=== PATIENT | male | born 1965 | race Caucasian/White ===

== ENCOUNTER 2016-11-28 14:14 | Inpatient (IN) | payer OTHER ==
[~2016-11-28] VITALS: Ht 182.9 cm; Wt 117.9 kg
[2016-11-28] MEDS ORDERED: IV NORMAL SALINE 1000ML BAG 1,000 ML IV SCH (14:56)
[2016-11-28] MEDS ORDERED: MECLIZINE HCL 12.5 MG TABLET. PO ONE (15:00)
--- NOTE | 2016-11-28 15:27 | EKG ---
[facility] [address] [place] [address] Test Date: 2016-11-28 Test Time: 14:36:38 Pat Name: JOSÉ MIGUEL COCHRAN Department: Room: Gender: M Academic Physician: : [id number] Requested By: Familia SHORT Order Number: [id number] Reading MD: Measurements Intervals [place] Rate: 74 P: 42 UT: 172 QRS: -28 QRSD: 98 T: 1 QT: 388 QTc: 436 Interpretive Statements SINUS RHYTHM ATRIAL PREMATURE COMPLEX(ES) LEFTWARD AXIS OTHERWISE NORMAL ECG RI6.01 No previous ECG available for comparison
--- NOTE | 2016-11-28 15:28 | RAD ---
PQRS Compliance Statement: One or more of the following individualized dose reduction techniques were utilized for this examination: 1. Automated exposure control 2. Adjustment of the mA and/or kV according to patient size 3. Use of iterative reconstruction technique CT of the head without contrast, 11/28/2016: History: Dizziness, tinnitus The ventricles are within normal limits in size. There is no shift of the midline structures. There is no evidence of acute intracranial hemorrhage or mass effect. IMPRESSION: No acute intracranial abnormality is detected.
[2016-11-28 15:54] LABS: CALCIUM 9.1 mg/dL (8.5-10.1); GFR 78.5
[2016-11-28 16:28] LABS: BASO # 0.1 x10^3/uL (0.0-0.2); BASO % 1 % (0-3); EOS % 3 % (0-3); HEMATOCRIT 44.9 % (39.0-53.0); HEMOGLOBIN 15.4 g/dL (13.0-17.5); LYMPH # 1.9 x10^3/uL (1.0-4.8); LYMPH % 15 % (24-48); MEAN CORPUSCULAR HEMOGLOBIN 29 pg (25-35); MEAN CORPUSCULAR HGB CONC 34 g/dL (31-37); MEAN CORPUSCULAR VOLUME 84 fL (79-100); MONO % 10 % (0-9); NEUT % 72 % (31-73); PLATELET COUNT 323 x10^3/uL (140-400); RED BLOOD COUNT 5.34 x10^6/uL (4.30-5.70); RED CELL DISTRIBUTION WIDTH 14.3 % (11.5-14.5); WHITE BLOOD COUNT 12.5 x10^3/uL (4.0-11.0)
[2016-11-28] MEDS ORDERED: DIAZEPAM 10 MG/2 ML DISP.SYRIN. IV ONE (16:30)
[2016-11-28] MEDS ORDERED: ACETAMINOPHEN 500 MG TABLET PO ONE (16:30)
--- NOTE | 2016-11-28 17:22 | PDOC2 ---
NEUROLOGY CONSULT Date of Admission Date of Admission DATE: 11/28/16 TIME: 17:08 Reason for Consult Reason for Consult: IMPRESSION: Vertigo. Dizziness Headaches Unsteadiness HTN HLD Obesity Drinking Tobacco use. RECOMMENDATIONS/PLAN: Brain MRI RANJIT. Carotid A US + Doppler. Plavix 75 mg daily, 1st dose starts on 11/28 if has CVA. Continue Lipitor HS. Meclizine 25 mg tid. Lab: UDS and other labs. HISTORY OF THE PRESENT ILLNESS: 51-y-old male patient with Hx of HTN and HLD developed symptoms of vertigo feeling room and self spinning, headache, unsteadiness and photophobia. No sensory or motor deficits. Cranial nerves are not affected. He came to the ER for evaluation. No history of chronic headache, ataxia, projectile vomiting, aphasia, numbness or weakness. PAST MEDICAL HISTORY: Please see above. PAST SURGERY HISTORY: No major surgery recently. ALLERGY: Unknown MEDICATIONS: Refer to [facility] FAMILY HISTORY: Non contributory. SOCIAL HISTORY: Lives at home. Denies illicit drug use. He chews tobacco on a daily basis many years. He was a heavy drinker in the past, but drinks infrequently now. REVIEW OF SYSTEMS: Constitutional: No malnutrition, weight loss, cachexia. Head: No traumatic brain or head injury. Skin: No edema, or rash. Ear: No infection, tinnitus. Eyes: No vision loss or color blindness. Nose: No bleeding or purulent discharges. Hearing: No hearing decrease. Neck: No injury. Cardiac: HTN, HLD. Pulmonary: No COPD. GI: No GI ulcer, GI bleeding. Urinary/genital: No dysuria, hematuria, incontinence, urinary retention. Endocrinologic: obesity. Skeletomuscular: No muscular atrophy, deformity. Neurological: see HP. Psychiatric: Denies drug use/abuse. Otherwise, not [id number] review of systems. PHYSICAL EXAMINATION: General appearance is in acute distress. HEENT: Normocephalic and nontraumatic. Eyes, nose, ears, and throat are unremarkable. Neck is supple. No lymphadenopathy. No bruits are heard over the carotid artery. No crepitus. Cardiovascular: S1, S2, regular rate and rhythm. Pulmonary: Clear to auscultation bilaterally. Abdomen: Bowel sounds are positive. Abdomen is soft, nontender, and nondistended. Extremities: No rash, lesions, or edema. No restriction of range of motion NEUROLOGICAL EXAMINATION: Awake. Oriented to time, place and person. PERRL. EOMI. Bilateral horizontal nystagmus noted. CN: no focal findings. Muscle tone: within normal. Muscle strength: 5 UE, 4+LE DTR: 2 UE, 1 at knee Plantar reflex: Flexor response bilaterally Gait: not examined in bed. Sensory exam: no acute abnormal findings. F-T-N test fine. Current Medications Current Medications Current Medications Sodium Chloride (Iv Sodium Chloride 0.9% 1000ml Bag) 1,000 ml @ 1,000 mls/hr Q1H IV Last administered on 11/28/16 15:24; Start 11/28/16 at 14:56; Stop at 15:55; Status DC Meclizine HCl (Antivert) 25 mg 1X ONCE PO Last administered on 11/28/16 15:24 ; Start 11/28/16 at 15:00; Stop 11/28/16 at 15:02; Status DC Acetaminophen (Tylenol) 500 mg 1X ONCE PO Last administered on 11/28/16 16:33 ; Start 11/28/16 at 16:30; Stop 11/28/16 at 16:31; Status DC Diazepam (Valium) 2 mg 1X ONCE IV Last administered on 11/28/16 16:34; Start 11/28/16 at 16:30; Stop 11/28/16 at 16:31; Status DC Allergies Allergies: Coded Allergies: aspirin (Verified Allergy, Unknown, 11/28/16) Vitals VITALS Vital Signs Date Time Temp Pulse Resp B/P Pulse Ox O2 Delivery O2 Flow Rate FiO2 11/28/16 14:42 98.2 72 16 135/66 95 Room Air 98.2 Labs Labs Laboratory Tests Test 11/28/16 15:17 White Blood Count 12.5x10^3/uL (4.0-11.0) Red Blood Count 5.34x10^6/uL (4.30-5.70) Hemoglobin 15.4g/dL (13.0-17.5) Hematocrit 44.9% (39.0-53.0) Mean Corpuscular Volume 84fL (79-100) Mean Corpuscular Hemoglobin 29pg (25-35) Mean Corpuscular Hemoglobin Concent 34g/dL (31-37) Red Cell Distribution Width 14.3% (11.5-14.5) Platelet Count 323x10^3/uL (140-400) Neutrophils (%) (Auto) 72% (31-73) Lymphocytes (%) (Auto) 15% (24-48) Monocytes (%) (Auto) 10% (0-9) Eosinophils (%) (Auto) 3% (0-3) Basophils (%) (Auto) 1% (0-3) Neutrophils # (Auto) 8.9x10^3uL (1.8-7.7) Lymphocytes # (Auto) 1.9x10^3/uL (1.0-4.8) Monocytes # (Auto) 1.2x10^3/uL (0.0-1.1) Eosinophils # (Auto) 0.4x10^3/uL (0.0-0.7) Basophils # (Auto) 0.1x10^3/uL (0.0-0.2) Sodium Level 140mmol/L (136-145) Potassium Level 4.0mmol/L (3.5-5.1) Chloride Level 105mmol/L (98-107) Carbon Dioxide Level 26mmol/L (21-32) Anion Gap 9 (6-14) Blood Urea Nitrogen 12mg/dL (8-26) Creatinine 1.0mg/dL (0.7-1.3) Estimated GFR (Cockcroft-Gault) 78.5 Glucose Level 103mg/dL (70-99) Calcium Level 9.1mg/dL (8.5-10.1) Laboratory Tests Test 11/28/16 15:17 White Blood Count 12.5x10^3/uL (4.0-11.0) Red Blood Count 5.34x10^6/uL (4.30-5.70) Hemoglobin 15.4g/dL (13.0-17.5) Hematocrit 44.9% (39.0-53.0) Mean Corpuscular Volume 84fL (79-100) Mean Corpuscular Hemoglobin 29pg (25-35) Mean Corpuscular Hemoglobin Concent 34g/dL (31-37) Red Cell Distribution Width 14.3% (11.5-14.5) Platelet Count 323x10^3/uL (140-400) Neutrophils (%) (Auto) 72% (31-73) Lymphocytes (%) (Auto) 15% (24-48) Monocytes (%) (Auto) 10% (0-9) Eosinophils (%) (Auto) 3% (0-3) Basophils (%) (Auto) 1% (0-3) Neutrophils # (Auto) 8.9x10^3uL (1.8-7.7) Lymphocytes # (Auto) 1.9x10^3/uL (1.0-4.8) Monocytes # (Auto) 1.2x10^3/uL (0.0-1.1) Eosinophils # (Auto) 0.4x10^3/uL (0.0-0.7) Basophils # (Auto) 0.1x10^3/uL (0.0-0.2) Sodium Level 140mmol/L (136-145) Potassium Level 4.0mmol/L (3.5-5.1) Chloride Level 105mmol/L (98-107) Carbon Dioxide Level 26mmol/L (21-32) Anion Gap 9 (6-14) Blood Urea Nitrogen 12mg/dL (8-26) Creatinine 1.0mg/dL (0.7-1.3) Estimated GFR (Cockcroft-Gault) 78.5 Glucose Level 103mg/dL (70-99) Calcium Level 9.1mg/dL (8.5-10.1) ESTELA NOVOA MD Nov 28, 2016 17:22
--- NOTE | 2016-11-28 17:55 | PHYS DOC ---
Past Medical History Past Medical History: High Cholesterol Past Surgical History: Tonsillectomy Smoking: Chew Alcohol Use: Rarely Drug Use: None Adult General Chief Complaint Chief Complaint: DIZZY/LIGHT HEADED HPI HPI Patient is a 51 year old male who presents with acute onset of room spinning dizziness associated with bilateral ringing in ears that started while he was at work today. States his symptoms are worse with movement of his head or standing. His symptoms are constant, but to improve with rest. Minor movement does not exacerbate his symptoms. He denies vision changes, nausea or vomiting, chest pain, palpitations, diaphoresis, cough, dyspnea, abdominal pain, diarrhea , fever or chills, headache, neck pain or manipulation. Review of Systems Review of Systems Constitutional: Denies fever or chills [] Eyes: Denies change in visual acuity, redness, or eye pain [] HENT: Denies nasal congestion or sore throat [] Respiratory: Denies cough or shortness of breath [] Cardiovascular: No additional information not addressed in HPI [] GI: Denies abdominal pain, nausea, vomiting, bloody stools or diarrhea [] : Denies dysuria or hematuria [] Musculoskeletal: Denies back pain or joint pain [] Integument: Denies rash or skin lesions [] Neurologic: Denies headache, focal weakness or sensory changes [] Endocrine: Denies polyuria or polydipsia [] Current Medications Current Medications Current Medications Medications (Trade) Dose Ordered Sig/Camilo Start Time Stop Time Status Last Admin Dose Admin Acetaminophen (Tylenol) 500 mg 1X ONCE 11/28/16 16:30 11/28/16 16:31 DC 11/28/16 16:33 500 MG Diazepam (Valium) 2 mg 1X ONCE 11/28/16 16:30 11/28/16 16:31 DC 11/28/16 16:34 2 MG Meclizine HCl (Antivert) 25 mg 1X ONCE 11/28/16 15:00 11/28/16 15:02 DC 11/28/16 15:24 25 MG Sodium Chloride (Iv Sodium Chloride 0.9% 1000ml Bag) 1,000 ml @ 1,000 mls/hr Q1H 11/28/16 14:56 11/28/16 15:55 DC 11/28/16 15:24 1,000 MLS/HR Allergies Allergies Allergies Coded Allergies Type Severity Reaction Last Updated Verified aspirin Allergy Unknown 11/28/16 Yes Physical Exam Physical Exam Constitutional: Well developed, well nourished, no acute distress, non-toxic appearance. [] HENT: Normocephalic, atraumatic, bilateral external ears normal, oropharynx moist, no oral exudates, nose normal. [] Eyes: PERRLA, EOMI. [] Neck: Normal range of motion, supple. [] Cardiovascular:Heart rate regular rhythm [] Lungs & Thorax: Bilateral breath sounds clear to auscultation [] Abdomen: Bowel sounds normal, soft, no tenderness. [] Skin: Warm, dry, no erythema, no rash. [] Back: Normal range of motion. [] Extremities: No tenderness, ROM intact, no edema. [] Neurologic: Alert and oriented X 3, normal motor function, normal sensory function, no focal deficits noted, cranial nerves II through XII intact, no nystagmus, no extremity drift. [] Psychologic: Affect normal, judgement normal, mood normal. [] Current Patient Data Vital Signs Vital Signs Date Time Temp Pulse Resp B/P Pulse Ox O2 Delivery O2 Flow Rate FiO2 11/28/16 14:42 98.2 72 16 135/66 95 Room Air 98.2 Lab Values Laboratory Tests Test 11/28/16 15:17 White Blood Count 12.5x10^3/uL (4.0-11.0) H Red Blood Count 5.34x10^6/uL (4.30-5.70) Hemoglobin 15.4g/dL (13.0-17.5) Hematocrit 44.9% (39.0-53.0) Mean Corpuscular Volume 84fL (79-100) Mean Corpuscular Hemoglobin 29pg (25-35) Mean Corpuscular Hemoglobin Concent 34g/dL (31-37) Red Cell Distribution Width 14.3% (11.5-14.5) Platelet Count 323x10^3/uL (140-400) Neutrophils (%) (Auto) 72% (31-73) Lymphocytes (%) (Auto) 15% (24-48) L Monocytes (%) (Auto) 10% (0-9) H Eosinophils (%) (Auto) 3% (0-3) Basophils (%) (Auto) 1% (0-3) Neutrophils # (Auto) 8.9x10^3uL (1.8-7.7) H Lymphocytes # (Auto) 1.9x10^3/uL (1.0-4.8) Monocytes # (Auto) 1.2x10^3/uL (0.0-1.1) H Eosinophils # (Auto) 0.4x10^3/uL (0.0-0.7) Basophils # (Auto) 0.1x10^3/uL (0.0-0.2) Sodium Level 140mmol/L (136-145) Potassium Level 4.0mmol/L (3.5-5.1) Chloride Level 105mmol/L (98-107) Carbon Dioxide Level 26mmol/L (21-32) Anion Gap 9 (6-14) Blood Urea Nitrogen 12mg/dL (8-26) Creatinine 1.0mg/dL (0.7-1.3) Estimated GFR (Cockcroft-Gault) 78.5 Glucose Level 103mg/dL (70-99) H Calcium Level 9.1mg/dL (8.5-10.1) Laboratory Tests 11/28/16 15:17 Laboratory Tests 11/28/16 15:17 EKG EKG EKG as interpreted by me as normal sinus rhythm, rate 74, no ST-T changes, normal intervals, no ectopy Radiology/Procedures Radiology/Procedures Head CT without contrast IMPRESSION: No acute intracranial abnormality is detected. DICTATED and SIGNED BY: BLAKE TADEO MD DATE: 11/28/16 1524 Course & Med Decision Making Course & Med Decision Making Pertinent Labs and Imaging studies reviewed. (See chart for details) Workup is unremarkable. He has not improved with IV fluids and meclizine and he has developed a throbbing bilateral headache. Neuro exam is unchanged at this time. He ambulated to the restroom and became very dizzy. I discussed the case with Dr. Waters, neurology, with concern of possible central cause of vertigo. She recommended stat Brain MRI. I called MRI to help facilitate imaging, but this will not be complete within the window for thrombolysis. He will be admitted for further workup. Discussed case with Dr. Allen, who will admit and follow up results of MRI. Dragon Disclaimer Dragon Disclaimer This electronic medical record was generated, in whole or in part, using a voice recognition dictation system. Departure Departure Impression: Primary Impression: Dizziness Additional Impression: Tinnitus Disposition: 09 ADMITTED INPATIENT Condition: STABLE Referrals: UNKNOWN PCP NAME (PCP) Problem Qualifiers Additional Impression: Tinnitus Laterality: bilateral Qualified Code: H93.13 - Tinnitus, bilateral Familia SHORT MD Nov 28, 2016 17:54
[2016-11-28] MEDS ORDERED: ACETAMINOPHEN 325 MG TABLET. PO PRN ×3 (19:00→20:45)
[2016-11-28] MEDS ORDERED: ONDANSETRON PF 4 MG/2 ML VIAL. IV PRN ×3 (19:00→20:45)
[2016-11-28 19:54] VITALS: BP 145/89
--- NOTE | 2016-11-28 20:08 | RAD ---
PROCEDURE MRI of the brain without contrast HISTORY Dizziness on light sensitivity and headache TECHNIQUE Multisequential imaging of the brain was performed without contrast FINDINGS There are a few tiny foci of increased signal on FLAIR in the periventricular and subcortical white matter. There is no mass effect or extra-axial fluid collections or hydrocephalus. There is no restricted water motion to suggest ischemia. IMPRESSION Tiny foci of signal abnormality in the white matter is likely chronic small vessel disease. There is no acute findings. Electronically signed by: Tylor Burton MD (Nov 28, 2016 20:07:02)
[2016-11-28] MEDS ORDERED: ALBUTEROL SULFATE 2.5 MG/3 ML NEBU. NEB PRN ×2 (20:30→20:45)
[2016-11-28] MEDS ORDERED: hydrALAZINE 20 MG/ML VIAL. IVP PRN ×2 (20:30→20:45)
--- NOTE | 2016-11-28 20:34 | PDOC1 ---
History and Physical Current Problem List Problem List Problems Medical Problems: (1) Dizziness Status: Acute (2) Tinnitus Status: Acute Current Medications Current Medications Current Medications Medications (Trade) Dose Ordered Sig/Camilo Start Time Stop Time Status Last Admin Dose Admin Acetaminophen (Tylenol) 650 mg PRN Q4HRS PRN 11/28/16 19:00 11/29/16 18:59 Diazepam (Valium) 2 mg 1X ONCE 11/28/16 16:30 11/28/16 16:31 DC 11/28/16 16:34 2 MG Meclizine HCl (Antivert) 25 mg 1X ONCE 11/28/16 15:00 11/28/16 15:02 DC 11/28/16 15:24 25 MG Ondansetron HCl (Zofran) 4 mg PRN Q8HRS PRN 11/28/16 19:00 11/29/16 18:59 11/28/16 19:44 4 MG Sodium Chloride (Iv Sodium Chloride 0.9% 1000ml Bag) 1,000 ml @ 1,000 mls/hr Q1H 11/28/16 14:56 11/28/16 15:55 DC 11/28/16 15:24 1,000 MLS/HR Allergies Allergies Allergies Coded Allergies Type Severity Reaction Last Updated Verified aspirin Allergy Unknown 11/28/16 Yes ROS Review of System CONSTITUTIONAL: No fever or chills EYES: No recent changes SKIN: No rash or itching CARDIOVASCULAR: No chest pain, syncope, palpitations, or edema RESPIRATORY: No SOB or cough GASTROINTESTINAL: No nausea, vomiting or abdominal pain NEUROLOGICAL: dizziness, tinnitus, headaches ENDOCRINE: No cold or heat intolerance GENITOURINARY: No urgency or frequency of urination MUSCULOSKELETAL: No back pain or joint pain LYMPHATICS: No enlarged lymph nodes PSYCHIATRIC: No anxiety or depression Physical Exam Physical Exam GEN.: No apparent distress. Alert and oriented. HEENT: Head is normocephalic, atraumatic NECK: Supple. no jvd LUNGS: Clear to auscultation. normal airflow HEART: RRR, S1, S2 present. Peripheral pulses intact ABDOMEN: Soft, nontender. Positive bowel sounds. EXTREMITIES: Without any cyanosis. NEUROLOGIC: Normal speech, normal tone normal strength in all extremities, no focal defects seen on exam PSYCHIATRIC: Normal affect, normal mood. SKIN: No visible skin changes Vitals Vitals Vital Signs Date Time Temp Pulse Resp B/P Pulse Ox O2 Delivery O2 Flow Rate FiO2 11/28/16 19:54 98.0 69 20 145/89 97 Room Air 98.0 Labs Labs Laboratory Tests Test 11/28/16 15:17 White Blood Count 12.5x10^3/uL (4.0-11.0) Red Blood Count 5.34x10^6/uL (4.30-5.70) Hemoglobin 15.4g/dL (13.0-17.5) Hematocrit 44.9% (39.0-53.0) Mean Corpuscular Volume 84fL (79-100) Mean Corpuscular Hemoglobin 29pg (25-35) Mean Corpuscular Hemoglobin Concent 34g/dL (31-37) Red Cell Distribution Width 14.3% (11.5-14.5) Platelet Count 323x10^3/uL (140-400) Neutrophils (%) (Auto) 72% (31-73) Lymphocytes (%) (Auto) 15% (24-48) Monocytes (%) (Auto) 10% (0-9) Eosinophils (%) (Auto) 3% (0-3) Basophils (%) (Auto) 1% (0-3) Neutrophils # (Auto) 8.9x10^3uL (1.8-7.7) Lymphocytes # (Auto) 1.9x10^3/uL (1.0-4.8) Monocytes # (Auto) 1.2x10^3/uL (0.0-1.1) Eosinophils # (Auto) 0.4x10^3/uL (0.0-0.7) Basophils # (Auto) 0.1x10^3/uL (0.0-0.2) Sodium Level 140mmol/L (136-145) Potassium Level 4.0mmol/L (3.5-5.1) Chloride Level 105mmol/L (98-107) Carbon Dioxide Level 26mmol/L (21-32) Anion Gap 9 (6-14) Blood Urea Nitrogen 12mg/dL (8-26) Creatinine 1.0mg/dL (0.7-1.3) Estimated GFR (Cockcroft-Gault) 78.5 Glucose Level 103mg/dL (70-99) Calcium Level 9.1mg/dL (8.5-10.1) Laboratory Tests Test 11/28/16 15:17 White Blood Count 12.5x10^3/uL (4.0-11.0) Red Blood Count 5.34x10^6/uL (4.30-5.70) Hemoglobin 15.4g/dL (13.0-17.5) Hematocrit 44.9% (39.0-53.0) Mean Corpuscular Volume 84fL (79-100) Mean Corpuscular Hemoglobin 29pg (25-35) Mean Corpuscular Hemoglobin Concent 34g/dL (31-37) Red Cell Distribution Width 14.3% (11.5-14.5) Platelet Count 323x10^3/uL (140-400) Neutrophils (%) (Auto) 72% (31-73) Lymphocytes (%) (Auto) 15% (24-48) Monocytes (%) (Auto) 10% (0-9) Eosinophils (%) (Auto) 3% (0-3) Basophils (%) (Auto) 1% (0-3) Neutrophils # (Auto) 8.9x10^3uL (1.8-7.7) Lymphocytes # (Auto) 1.9x10^3/uL (1.0-4.8) Monocytes # (Auto) 1.2x10^3/uL (0.0-1.1) Eosinophils # (Auto) 0.4x10^3/uL (0.0-0.7) Basophils # (Auto) 0.1x10^3/uL (0.0-0.2) Sodium Level 140mmol/L (136-145) Potassium Level 4.0mmol/L (3.5-5.1) Chloride Level 105mmol/L (98-107) Carbon Dioxide Level 26mmol/L (21-32) Anion Gap 9 (6-14) Blood Urea Nitrogen 12mg/dL (8-26) Creatinine 1.0mg/dL (0.7-1.3) Estimated GFR (Cockcroft-Gault) 78.5 Glucose Level 103mg/dL (70-99) Calcium Level 9.1mg/dL (8.5-10.1) VTE Prophylaxis Ordered VTE Prophylaxis Devices: No VTE Pharmacological Prophylaxi: No JUDE ANTHONY MD Nov 28, 2016 20:34
[2016-11-28] MEDS ORDERED: HYDROCODONE/APAP 5/325MG TABLET. PO PRN (20:45)
[2016-11-28] MEDS: MECLIZINE HCL 12.5 MG TABLET. PO PRN (21:07)
--- NOTE | 2016-11-28 22:42 | ACF ---
Admission Forms Criteria DIZZINESS Clinical Indications for Admission to Inpatient Care (Place 'X' for any and all applicable criteria): Admission is indicated for ANY ONE of the following(1)(2)(3)(4): [ ]I. Inpatient admission required rather than observation care (Also use Dizziness: Observation Care as appropriate) because of ANY ONE of the following: [ ]a) Hemodynamic instability that is severe or persistent [ ]b) Signs or symptoms that are severe or persistent (eg, vomit, orthostasis, inability to ambulate) [ ]c) Cardiac arrhythmias of immediate concern [ ]d) Severe (new) neurologic findings requiring inpatient care as indicated by ANY ONE of the following(6)(7): [ ]1) Cerebral bleeding, ischemia, or vasospasm(8)(9) [ ]2) Increased intracranial pressure or hydrocephalus(10)(11)(12) [ ]3) Papilledema [ ]4) Cerebral edema [ ]5) Mass effect on CT scan [ ]e) Continuous IV infusion of anticoagulation, platelet inhibitor, vasoactive, or antiarrhythmic medication [ ]f) Cerebral bleeding, hydrocephalus, or vasospasm monitoring(14) [ ]g) Increased intracranial pressure or cerebral edema monitoring [ ]h) Vomiting that is severe or persistent [ ]i) Other condition, treatment or monitoring requiring inpatient admission [X]II. A suspected etiology that requires admission for treatment [ ]III. Acute bacterial labyrinthitis [ ]IV. Cerebellar, brainstem, or cerebral ischemia or hemorrhage (5) Extended stay beyond goal length of stay may be needed for evaluating and treating a specific cause of dizziness, including(32) [ ]a) Head injury (Also use Traumatic Brain Injury, Nonsurgical Treatment guideline) [ ]b) New-onset vertebrobasilar vascular insufficiency [ ]c) Acute Meniere disease with intractable symptoms [ ]d) Cardiac arrhythmias or conduction defects [ ]e) Acute neurologic event causing dizziness [ ]f) Myocardial ischemia [ ]g) Acute bacterial labyrinthitis. [ ]h) Severe acute vestibular neuronitis The original [employer] [employer] content created by [email or web address] has been revised. The portions of the content which have been revised are identified through the use of italic text or in bold, and [employer] has neither reviewed nor approved the modified material. All other unmodified content is copyright [facility]. Please see references footnoted in the original [facility] edition 2016 Admission Criteria Met?: Yes NIKO COMER Nov 28, 2016 22:42
--- NOTE | 2016-11-28 23:14 | HP ---
ADMIT DATE: 11/28/2016 CHIEF COMPLAINT: Dizziness, ringing in ears, headache. HISTORY OF PRESENT ILLNESS: A 51-year-old male patient with prior history of hyperlipidemia and hypertension, presented to the ER with complaints of room spinning, dizziness and feeling like bilateral ringing sensation in ear, started this afternoon around 2 p.m. He felt his feeling like as if he was drunk and denies any prior episodes of syncope or any changes in the life style. He says symptoms are constant in nature and right now he is complaining of some mild headache and denies any other symptoms such as nausea or vomiting. He denies any vision changes, palpitations or any other medical conditions. He denies any weakness, falls, dysarthria or speech changes. He was evaluated by ER physician and from that point to now his symptoms did not change. PAST MEDICAL HISTORY: Hyperlipidemia, hypertension. PAST SURGICAL HISTORY: Tonsillectomy. PERSONAL HISTORY: Occasionally takes alcohol. Denies any substance abuse, smoking, positive. FAMILY HISTORY: No CVA, no sudden cardiac . REVIEW OF SYSTEMS: Please see my electronic H and P. PHYSICAL EXAMINATION: Please see my electronic H and P. LABORATORY FINDINGS: BMP within normal range. CBC: WBC 12.5, hemoglobin is 15.4, platelets 323. IMAGING STUDIES: 1. CT of the head, no acute intracranial process seen. 2. MRI of the brain without contrast, tiny foci of signal abnormality in the white mattress likely chronic, small vessel disease, no acute findings seen. ASSESSMENT AND PLAN: 1. Dizziness, vertigo and tinnitus most likely peripheral rather dense central causes. 2. Hypertension. 3. Hyperlipidemia. 4. Obesity. 5. Nicotine use. PLAN: 1. Neurology has been consulted. MRI did not show any acute findings. The patient's symptoms persisted. We will order a CTA or MRI of the brain. 2. Continue telemetry. 3. Carotid Doppler pending. 4. Follow Neurology recommendations. 5. Fall precautions. 6. Resume home medications. 7. Blood pressure control. 8. Meclizine 25 mg t.i.d. for symptomatic relief. 9. Urine drug screen pending. 10. Prognosis is guarded. Plan explained to the patient. All questions were answered. JUDE ANTHONY MD DR: RICO/zhao JOB#: [id number] / [id number]
[2016-11-28 23:42] VITALS: BP 122/80
[2016-11-29] MEDS: HYDROCODONE/APAP 5/325MG TABLET. PO PRN ×3 (03:49→16:32)
[2016-11-29] MEDS: MECLIZINE HCL 12.5 MG TABLET. PO PRN (03:50)
[2016-11-29 03:55] VITALS: BP 118/61
[2016-11-29 04:13] LABS: BASO # 0.1 x10^3/uL (0.0-0.2); BASO % 1 % (0-3); EOS % 5 % (0-3); HEMATOCRIT 44.2 % (39.0-53.0); HEMOGLOBIN 14.6 g/dL (13.0-17.5); LYMPH % 32 % (24-48); MEAN CORPUSCULAR HEMOGLOBIN 29 pg (25-35); MEAN CORPUSCULAR HGB CONC 33 g/dL (31-37); MEAN CORPUSCULAR VOLUME 86 fL (79-100); MONO % 11 % (0-9); NEUT % 52 % (31-73); PLATELET COUNT 315 x10^3/uL (140-400); RED BLOOD COUNT 5.14 x10^6/uL (4.30-5.70); RED CELL DISTRIBUTION WIDTH 14.3 % (11.5-14.5); WHITE BLOOD COUNT 9.7 x10^3/uL (4.0-11.0)
[2016-11-29 04:20] LABS: CALCIUM 8.6 mg/dL (8.5-10.1); GFR 78.5
[2016-11-29 06:39] LABS: CHOLESTEROL/HDL RATIO 3.8
--- NOTE | 2016-11-29 07:17 | RAD ---
Carotid ultrasound, 11/28/2016: History: CVA Duplex evaluation of the carotid arteries in the neck was performed including grayscale, color-flow and spectral Doppler analysis. There is only minimal intimal thickening in the carotid arteries in the neck. No large plaques are evident. The Doppler data obtained from the bifurcations reveals no significant focal velocity acceleration to suggest a hemodynamically significant carotid stenosis. Antegrade flow is present in both vertebral arteries in the neck. Incidental note is made of a 3.8 cm solid nodule in the left lobe of the thyroid gland. IMPRESSION: 1. No duplex evidence of a significant carotid stenosis in the neck. 2. A moderate size left thyroid nodule is incidentally noted. Note: Stenosis calculations for CT, MRA and conventional angiography are based upon determination of the distal ICA diameter in accordance with the NASCET methodology. Stenosis calculations for Doppler studies are derived from validated velocity criteria which are known to correlate with NASCET methodology of determining stenosis.
[2016-11-29 07:59] VITALS: BP 122/64
[2016-11-29] MEDS ORDERED: MECLIZINE HCL 12.5 MG TABLET. PO PRN (10:15)
[2016-11-29 10:37] VITALS: BP 131/89
--- NOTE | 2016-11-29 11:56 | PDOC ---
PROGRESS NOTES Assessment Problems Medical Problems: (1) Dizziness Status: Acute (2) Tinnitus Status: Acute Peripheral vertigo, no evidence of central cause, but tinnitus is worrisome. No sign of hearing loss, though. Plan Continue supportive care, Zofran, meclizine, Lortab PRN Outpatient ENT consult Steroids would be indicated for acute hearing loss but such is not the case here. Subjective Still has tinnitus and headache, vertigo better Objective Vital Signs Date Time Temp Pulse Resp B/P Pulse Ox O2 Delivery O2 Flow Rate FiO2 11/29/16 11:45 Room Air 11/29/16 10:37 97.9 61 20 131/89 97 97.9 Intake and Output 11/29/16 07:00 Intake Total 1520 ml Balance 1520 ml Intake Oral 520 ml IV Total 1000 ml # Voids 6 PHYSICAL EXAM Tympanic membranes clear Alert. Oriented to time, place and person. PERRL. EOMI. CN: no focal findings. Normal hearing Muscle tone: normal. Muscle strength: 5/5 DTR: 2+ Plantar reflex: flexor Gait: normal Sensory exam: no abnormal findings. No cerebellar signs elicited. Review of Relevant I have reviewed the following items zeke (where applicable) has been applied. Labs Laboratory Tests Test 11/28/16 15:17 11/29/16 03:25 White Blood Count 12.5x10^3/uL (4.0-11.0) 9.7x10^3/uL (4.0-11.0) Red Blood Count 5.34x10^6/uL (4.30-5.70) 5.14x10^6/uL (4.30-5.70) Hemoglobin 15.4g/dL (13.0-17.5) 14.6g/dL (13.0-17.5) Hematocrit 44.9% (39.0-53.0) 44.2% (39.0-53.0) Mean Corpuscular Volume 84fL (79-100) 86fL (79-100) Mean Corpuscular Hemoglobin 29pg (25-35) 29pg (25-35) Mean Corpuscular Hemoglobin Concent 34g/dL (31-37) 33g/dL (31-37) Red Cell Distribution Width 14.3% (11.5-14.5) 14.3% (11.5-14.5) Platelet Count 323x10^3/uL (140-400) 315x10^3/uL (140-400) Neutrophils (%) (Auto) 72% (31-73) 52% (31-73) Lymphocytes (%) (Auto) 15% (24-48) 32% (24-48) Monocytes (%) (Auto) 10% (0-9) 11% (0-9) Eosinophils (%) (Auto) 3% (0-3) 5% (0-3) Basophils (%) (Auto) 1% (0-3) 1% (0-3) Neutrophils # (Auto) 8.9x10^3uL (1.8-7.7) 5.0x10^3uL (1.8-7.7) Lymphocytes # (Auto) 1.9x10^3/uL (1.0-4.8) 3.0x10^3/uL (1.0-4.8) Monocytes # (Auto) 1.2x10^3/uL (0.0-1.1) 1.0x10^3/uL (0.0-1.1) Eosinophils # (Auto) 0.4x10^3/uL (0.0-0.7) 0.5x10^3/uL (0.0-0.7) Basophils # (Auto) 0.1x10^3/uL (0.0-0.2) 0.1x10^3/uL (0.0-0.2) Sodium Level 140mmol/L (136-145) 144mmol/L (136-145) Potassium Level 4.0mmol/L (3.5-5.1) 4.0mmol/L (3.5-5.1) Chloride Level 105mmol/L (98-107) 108mmol/L (98-107) Carbon Dioxide Level 26mmol/L (21-32) 27mmol/L (21-32) Anion Gap 9 (6-14) 9 (6-14) Blood Urea Nitrogen 12mg/dL (8-26) 10mg/dL (8-26) Creatinine 1.0mg/dL (0.7-1.3) 1.0mg/dL (0.7-1.3) Estimated GFR (Cockcroft-Gault) 78.5 78.5 Glucose Level 103mg/dL (70-99) 104mg/dL (70-99) Calcium Level 9.1mg/dL (8.5-10.1) 8.6mg/dL (8.5-10.1) Triglycerides Level 83mg/dL (0-150) Cholesterol Level 130mg/dL (0-200) LDL Cholesterol, Calculated 79mg/dL (0-100) VLDL Cholesterol, Calculated 17mg/dL (0-40) HDL Cholesterol 34mg/dL (40-60) Cholesterol/HDL Ratio 3.8 Thyroid Stimulating Hormone (TSH) 2.423uIU/mL (0.358-3.74) Laboratory Tests Test 11/28/16 15:17 11/29/16 03:25 White Blood Count 12.5x10^3/uL (4.0-11.0) 9.7x10^3/uL (4.0-11.0) Red Blood Count 5.34x10^6/uL (4.30-5.70) 5.14x10^6/uL (4.30-5.70) Hemoglobin 15.4g/dL (13.0-17.5) 14.6g/dL (13.0-17.5) Hematocrit 44.9% (39.0-53.0) 44.2% (39.0-53.0) Mean Corpuscular Volume 84fL (79-100) 86fL (79-100) Mean Corpuscular Hemoglobin 29pg (25-35) 29pg (25-35) Mean Corpuscular Hemoglobin Concent 34g/dL (31-37) 33g/dL (31-37) Red Cell Distribution Width 14.3% (11.5-14.5) 14.3% (11.5-14.5) Platelet Count 323x10^3/uL (140-400) 315x10^3/uL (140-400) Neutrophils (%) (Auto) 72% (31-73) 52% (31-73) Lymphocytes (%) (Auto) 15% (24-48) 32% (24-48) Monocytes (%) (Auto) 10% (0-9) 11% (0-9) Eosinophils (%) (Auto) 3% (0-3) 5% (0-3) Basophils (%) (Auto) 1% (0-3) 1% (0-3) Neutrophils # (Auto) 8.9x10^3uL (1.8-7.7) 5.0x10^3uL (1.8-7.7) Lymphocytes # (Auto) 1.9x10^3/uL (1.0-4.8) 3.0x10^3/uL (1.0-4.8) Monocytes # (Auto) 1.2x10^3/uL (0.0-1.1) 1.0x10^3/uL (0.0-1.1) Eosinophils # (Auto) 0.4x10^3/uL (0.0-0.7) 0.5x10^3/uL (0.0-0.7) Basophils # (Auto) 0.1x10^3/uL (0.0-0.2) 0.1x10^3/uL (0.0-0.2) Sodium Level 140mmol/L (136-145) 144mmol/L (136-145) Potassium Level 4.0mmol/L (3.5-5.1) 4.0mmol/L (3.5-5.1) Chloride Level 105mmol/L (98-107) 108mmol/L (98-107) Carbon Dioxide Level 26mmol/L (21-32) 27mmol/L (21-32) Anion Gap 9 (6-14) 9 (6-14) Blood Urea Nitrogen 12mg/dL (8-26) 10mg/dL (8-26) Creatinine 1.0mg/dL (0.7-1.3) 1.0mg/dL (0.7-1.3) Estimated GFR (Cockcroft-Gault) 78.5 78.5 Glucose Level 103mg/dL (70-99) 104mg/dL (70-99) Calcium Level 9.1mg/dL (8.5-10.1) 8.6mg/dL (8.5-10.1) Triglycerides Level 83mg/dL (0-150) Cholesterol Level 130mg/dL (0-200) LDL Cholesterol, Calculated 79mg/dL (0-100) VLDL Cholesterol, Calculated 17mg/dL (0-40) HDL Cholesterol 34mg/dL (40-60) Cholesterol/HDL Ratio 3.8 Thyroid Stimulating Hormone (TSH) 2.423uIU/mL (0.358-3.74) Medications Current Medications Sodium Chloride (Iv Sodium Chloride 0.9% 1000ml Bag) 1,000 ml @ 1,000 mls/hr Q1H IV Last administered on 11/28/16 15:24; Start 11/28/16 at 14:56; Stop at 15:55; Status DC Meclizine HCl (Antivert) 25 mg 1X ONCE PO Last administered on 11/28/16 15:24 ; Start 11/28/16 at 15:00; Stop 11/28/16 at 15:02; Status DC Acetaminophen (Tylenol) 500 mg 1X ONCE PO Last administered on 11/28/16 16:33 ; Start 11/28/16 at 16:30; Stop 11/28/16 at 16:31; Status DC Diazepam (Valium) 2 mg 1X ONCE IV Last administered on 11/28/16 16:34; Start 11/28/16 at 16:30; Stop 11/28/16 at 16:31; Status DC Ondansetron HCl (Zofran) 4 mg PRN Q8HRS PRN IV NAUSEA/VOMITING Last administered on 11/28/16 19:44; Start 11/28/16 at 19:00; Stop 11/29/16 at 18:59 Acetaminophen (Tylenol) 650 mg PRN Q4HRS PRN PO FEVER; Start 11/28/16 at 19:00 ; Stop 11/29/16 at 18:59 Acetaminophen (Tylenol) 325 mg PRN Q6HRS PRN PO MILD PAIN / TEMP; Start at 20:30 Acetaminophen/ Hydrocodone Bitart (Lortab 5/325) 1 tab PRN Q6HRS PRN PO MODERATE TO SEVERE PAIN Last administered on 11/29/16 10:33; Start 11/28/16 at 20:30 Hydralazine HCl (Apresoline) 10 mg PRN Q4HRS PRN IVP ELEVATED BP, SEE COMMENTS ; Start 11/28/16 at 20:30; Status Cancel Ondansetron HCl (Zofran) 4 mg PRN Q8HRS PRN IV NAUSEA/VOMITING; Start 11/28/16 at 20:30; Status Cancel Albuterol Sulfate (Ventolin Neb Soln) 2.5 mg PRN Q4HRS PRN NEB SHORTNESS OF BREATH; Start 11/28/16 at 20:30; Status Cancel Acetaminophen (Tylenol) 325 mg PRN Q6HRS PRN PO MILD PAIN / TEMP; Start at 20:45 Acetaminophen/ Hydrocodone Bitart (Lortab 5/325) 1 tab PRN Q6HRS PRN PO MODERATE TO SEVERE PAIN; Start 11/28/16 at 20:45 Hydralazine HCl (Apresoline) 10 mg PRN Q4HRS PRN IVP ELEVATED BP, SEE COMMENTS ; Start 11/28/16 at 20:45 Ondansetron HCl (Zofran) 4 mg PRN Q8HRS PRN IV NAUSEA/VOMITING; Start 11/28/16 at 20:45; Stop 11/29/16 at 10:11; Status DC Albuterol Sulfate (Ventolin Neb Soln) 2.5 mg PRN Q4HRS PRN NEB SHORTNESS OF BREATH; Start 11/28/16 at 20:45 Meclizine HCl (Antivert) 12.5 mg PRN Q6HRS PRN PO DIZZINESS Last administered on 11/29/16t 03:50; Start 11/28/16 at 20:45; Stop 11/29/16 at 10:11; Status DC Meclizine HCl (Antivert) 25 mg PRN Q6HRS PRN PO DIZZINESS Last administered on 11/29/16t 10:33; Start 11/29/16 at 10:15 Ondansetron HCl (Zofran) 4 mg PRN Q6HRS PRN IV NAUSEA/VOMITING; Start 11/29/16 at 20:45 Vitals/I & O Vital Sign - Last 24 Hours 11/28/16 11/28/16 11/28/16 11/28/16 14:42 15:40 16:40 17:40 Temp 98.2 98.2 Pulse 72 76 74 74 Resp 16 18 18 18 B/P 135/66 168/95 156/80 138/76 Pulse Ox 95 98 96 95 O2 Delivery Room Air Room Air Room Air Room Air 11/28/16 11/28/16 11/28/16 11/28/16 18:23 19:54 21:57 23:42 Temp 98.0 97.9 98.0 97.9 Pulse 76 69 64 Resp 18 20 18 B/P 140/85 145/89 122/80 Pulse Ox 95 97 96 O2 Delivery Room Air Room Air Room Air Room Air 11/29/16 11/29/16 11/29/16 11/29/16 03:55 07:45 07:59 10:33 Temp 97.9 97.9 97.9 97.9 Pulse 68 61 Resp 16 20 B/P 118/61 122/64 Pulse Ox 63 95 O2 Delivery Room Air Room Air Room Air Room Air 11/29/16 11/29/16 10:37 11:45 Temp 97.9 97.9 Pulse 61 Resp 20 B/P 131/89 Pulse Ox 97 O2 Delivery Room Air Room Air Intake and Output 11/28/16 11/28/16 11/29/16 15:00 23:00 07:00 Intake Total 1000 ml 520 ml Balance 1000 ml 520 ml Images MRI and carotid Dopplers negative THOMPSON VALDOVINOS MD Nov 29, 2016 11:56
--- NOTE | 2016-11-29 13:53 | PDOC ---
PROGRESS NOTES Chief Complaint Chief Complaint 1. Dizziness, vertigo and tinnitus most likely peripheral rather dense central causes. 2. Hypertension. 3. Hyperlipidemia. 4. Obesity. 5. Nicotine use. History of Present Illness History of Present Illness MRI brain neg BUt pt feeling dizzy still, unwell over all STuffy nose, dragging R feet/leg as he went to the bathroom PT note reviewed Notes bilateral neck pain INcidental thyroid nodule - denies sxs to me, or at least unable to participate with further questioning today PLAn: Start IVF Inc meclizine to 25 scheduled tID Get physiatry PT/PT again kamron, Start cetirizine qD Start flonase CHeck flu CHeck TSH - see if nodule is functioning - told can be done as oP too Vitals Vitals Vital Signs Date Time Temp Pulse Resp B/P Pulse Ox O2 Delivery O2 Flow Rate FiO2 11/29/16 11:45 Room Air 11/29/16 10:37 97.9 61 20 131/89 97 97.9 Physical Exam General: No acute distress, Other (feels sick) Heart: Regular rate, Normal S1, Normal S2 Lungs: Clear Abdomen: Normal bowel sounds, Soft Extremities: No clubbing, No cyanosis Skin: No rashes, No breakdown Labs LABS Laboratory Tests Test 11/28/16 15:17 11/29/16 03:25 White Blood Count 12.5x10^3/uL (4.0-11.0) 9.7x10^3/uL (4.0-11.0) Red Blood Count 5.34x10^6/uL (4.30-5.70) 5.14x10^6/uL (4.30-5.70) Hemoglobin 15.4g/dL (13.0-17.5) 14.6g/dL (13.0-17.5) Hematocrit 44.9% (39.0-53.0) 44.2% (39.0-53.0) Mean Corpuscular Volume 84fL (79-100) 86fL (79-100) Mean Corpuscular Hemoglobin 29pg (25-35) 29pg (25-35) Mean Corpuscular Hemoglobin Concent 34g/dL (31-37) 33g/dL (31-37) Red Cell Distribution Width 14.3% (11.5-14.5) 14.3% (11.5-14.5) Platelet Count 323x10^3/uL (140-400) 315x10^3/uL (140-400) Neutrophils (%) (Auto) 72% (31-73) 52% (31-73) Lymphocytes (%) (Auto) 15% (24-48) 32% (24-48) Monocytes (%) (Auto) 10% (0-9) 11% (0-9) Eosinophils (%) (Auto) 3% (0-3) 5% (0-3) Basophils (%) (Auto) 1% (0-3) 1% (0-3) Neutrophils # (Auto) 8.9x10^3uL (1.8-7.7) 5.0x10^3uL (1.8-7.7) Lymphocytes # (Auto) 1.9x10^3/uL (1.0-4.8) 3.0x10^3/uL (1.0-4.8) Monocytes # (Auto) 1.2x10^3/uL (0.0-1.1) 1.0x10^3/uL (0.0-1.1) Eosinophils # (Auto) 0.4x10^3/uL (0.0-0.7) 0.5x10^3/uL (0.0-0.7) Basophils # (Auto) 0.1x10^3/uL (0.0-0.2) 0.1x10^3/uL (0.0-0.2) Sodium Level 140mmol/L (136-145) 144mmol/L (136-145) Potassium Level 4.0mmol/L (3.5-5.1) 4.0mmol/L (3.5-5.1) Chloride Level 105mmol/L (98-107) 108mmol/L (98-107) Carbon Dioxide Level 26mmol/L (21-32) 27mmol/L (21-32) Anion Gap 9 (6-14) 9 (6-14) Blood Urea Nitrogen 12mg/dL (8-26) 10mg/dL (8-26) Creatinine 1.0mg/dL (0.7-1.3) 1.0mg/dL (0.7-1.3) Estimated GFR (Cockcroft-Gault) 78.5 78.5 Glucose Level 103mg/dL (70-99) 104mg/dL (70-99) Calcium Level 9.1mg/dL (8.5-10.1) 8.6mg/dL (8.5-10.1) Triglycerides Level 83mg/dL (0-150) Cholesterol Level 130mg/dL (0-200) LDL Cholesterol, Calculated 79mg/dL (0-100) VLDL Cholesterol, Calculated 17mg/dL (0-40) HDL Cholesterol 34mg/dL (40-60) Cholesterol/HDL Ratio 3.8 Thyroid Stimulating Hormone (TSH) 2.423uIU/mL (0.358-3.74) Review of Systems Review of Systems stuffy nose, dizzy, neck pain Assessment and Plan Assessmemt and Plan Problems Medical Problems: (1) Dizziness Status: Acute (2) Tinnitus Status: Acute Problems: Comment Review of Relevant I have reviewed the following items zeke (where applicable) has been applied. Labs Laboratory Tests Test 11/28/16 15:17 11/29/16 03:25 White Blood Count 12.5x10^3/uL (4.0-11.0) 9.7x10^3/uL (4.0-11.0) Red Blood Count 5.34x10^6/uL (4.30-5.70) 5.14x10^6/uL (4.30-5.70) Hemoglobin 15.4g/dL (13.0-17.5) 14.6g/dL (13.0-17.5) Hematocrit 44.9% (39.0-53.0) 44.2% (39.0-53.0) Mean Corpuscular Volume 84fL (79-100) 86fL (79-100) Mean Corpuscular Hemoglobin 29pg (25-35) 29pg (25-35) Mean Corpuscular Hemoglobin Concent 34g/dL (31-37) 33g/dL (31-37) Red Cell Distribution Width 14.3% (11.5-14.5) 14.3% (11.5-14.5) Platelet Count 323x10^3/uL (140-400) 315x10^3/uL (140-400) Neutrophils (%) (Auto) 72% (31-73) 52% (31-73) Lymphocytes (%) (Auto) 15% (24-48) 32% (24-48) Monocytes (%) (Auto) 10% (0-9) 11% (0-9) Eosinophils (%) (Auto) 3% (0-3) 5% (0-3) Basophils (%) (Auto) 1% (0-3) 1% (0-3) Neutrophils # (Auto) 8.9x10^3uL (1.8-7.7) 5.0x10^3uL (1.8-7.7) Lymphocytes # (Auto) 1.9x10^3/uL (1.0-4.8) 3.0x10^3/uL (1.0-4.8) Monocytes # (Auto) 1.2x10^3/uL (0.0-1.1) 1.0x10^3/uL (0.0-1.1) Eosinophils # (Auto) 0.4x10^3/uL (0.0-0.7) 0.5x10^3/uL (0.0-0.7) Basophils # (Auto) 0.1x10^3/uL (0.0-0.2) 0.1x10^3/uL (0.0-0.2) Sodium Level 140mmol/L (136-145) 144mmol/L (136-145) Potassium Level 4.0mmol/L (3.5-5.1) 4.0mmol/L (3.5-5.1) Chloride Level 105mmol/L (98-107) 108mmol/L (98-107) Carbon Dioxide Level 26mmol/L (21-32) 27mmol/L (21-32) Anion Gap 9 (6-14) 9 (6-14) Blood Urea Nitrogen 12mg/dL (8-26) 10mg/dL (8-26) Creatinine 1.0mg/dL (0.7-1.3) 1.0mg/dL (0.7-1.3) Estimated GFR (Cockcroft-Gault) 78.5 78.5 Glucose Level 103mg/dL (70-99) 104mg/dL (70-99) Calcium Level 9.1mg/dL (8.5-10.1) 8.6mg/dL (8.5-10.1) Triglycerides Level 83mg/dL (0-150) Cholesterol Level 130mg/dL (0-200) LDL Cholesterol, Calculated 79mg/dL (0-100) VLDL Cholesterol, Calculated 17mg/dL (0-40) HDL Cholesterol 34mg/dL (40-60) Cholesterol/HDL Ratio 3.8 Thyroid Stimulating Hormone (TSH) 2.423uIU/mL (0.358-3.74) Laboratory Tests Test 11/28/16 15:17 11/29/16 03:25 White Blood Count 12.5x10^3/uL (4.0-11.0) 9.7x10^3/uL (4.0-11.0) Red Blood Count 5.34x10^6/uL (4.30-5.70) 5.14x10^6/uL (4.30-5.70) Hemoglobin 15.4g/dL (13.0-17.5) 14.6g/dL (13.0-17.5) Hematocrit 44.9% (39.0-53.0) 44.2% (39.0-53.0) Mean Corpuscular Volume 84fL (79-100) 86fL (79-100) Mean Corpuscular Hemoglobin 29pg (25-35) 29pg (25-35) Mean Corpuscular Hemoglobin Concent 34g/dL (31-37) 33g/dL (31-37) Red Cell Distribution Width 14.3% (11.5-14.5) 14.3% (11.5-14.5) Platelet Count 323x10^3/uL (140-400) 315x10^3/uL (140-400) Neutrophils (%) (Auto) 72% (31-73) 52% (31-73) Lymphocytes (%) (Auto) 15% (24-48) 32% (24-48) Monocytes (%) (Auto) 10% (0-9) 11% (0-9) Eosinophils (%) (Auto) 3% (0-3) 5% (0-3) Basophils (%) (Auto) 1% (0-3) 1% (0-3) Neutrophils # (Auto) 8.9x10^3uL (1.8-7.7) 5.0x10^3uL (1.8-7.7) Lymphocytes # (Auto) 1.9x10^3/uL (1.0-4.8) 3.0x10^3/uL (1.0-4.8) Monocytes # (Auto) 1.2x10^3/uL (0.0-1.1) 1.0x10^3/uL (0.0-1.1) Eosinophils # (Auto) 0.4x10^3/uL (0.0-0.7) 0.5x10^3/uL (0.0-0.7) Basophils # (Auto) 0.1x10^3/uL (0.0-0.2) 0.1x10^3/uL (0.0-0.2) Sodium Level 140mmol/L (136-145) 144mmol/L (136-145) Potassium Level 4.0mmol/L (3.5-5.1) 4.0mmol/L (3.5-5.1) Chloride Level 105mmol/L (98-107) 108mmol/L (98-107) Carbon Dioxide Level 26mmol/L (21-32) 27mmol/L (21-32) Anion Gap 9 (6-14) 9 (6-14) Blood Urea Nitrogen 12mg/dL (8-26) 10mg/dL (8-26) Creatinine 1.0mg/dL (0.7-1.3) 1.0mg/dL (0.7-1.3) Estimated GFR (Cockcroft-Gault) 78.5 78.5 Glucose Level 103mg/dL (70-99) 104mg/dL (70-99) Calcium Level 9.1mg/dL (8.5-10.1) 8.6mg/dL (8.5-10.1) Triglycerides Level 83mg/dL (0-150) Cholesterol Level 130mg/dL (0-200) LDL Cholesterol, Calculated 79mg/dL (0-100) VLDL Cholesterol, Calculated 17mg/dL (0-40) HDL Cholesterol 34mg/dL (40-60) Cholesterol/HDL Ratio 3.8 Thyroid Stimulating Hormone (TSH) 2.423uIU/mL (0.358-3.74) Medications Current Medications Sodium Chloride (Iv Sodium Chloride 0.9% 1000ml Bag) 1,000 ml @ 1,000 mls/hr Q1H IV Last administered on 11/28/16 15:24; Start 11/28/16 at 14:56; Stop at 15:55; Status DC Meclizine HCl (Antivert) 25 mg 1X ONCE PO Last administered on 11/28/16 15:24 ; Start 11/28/16 at 15:00; Stop 11/28/16 at 15:02; Status DC Acetaminophen (Tylenol) 500 mg 1X ONCE PO Last administered on 11/28/16 16:33 ; Start 11/28/16 at 16:30; Stop 11/28/16 at 16:31; Status DC Diazepam (Valium) 2 mg 1X ONCE IV Last administered on 11/28/16 16:34; Start 11/28/16 at 16:30; Stop 11/28/16 at 16:31; Status DC Ondansetron HCl (Zofran) 4 mg PRN Q8HRS PRN IV NAUSEA/VOMITING Last administered on 11/28/16 19:44; Start 11/28/16 at 19:00; Stop 11/29/16 at 18:59 Acetaminophen (Tylenol) 650 mg PRN Q4HRS PRN PO FEVER; Start 11/28/16 at 19:00 ; Stop 11/29/16 at 18:59 Acetaminophen (Tylenol) 325 mg PRN Q6HRS PRN PO MILD PAIN / TEMP; Start at 20:30 Acetaminophen/ Hydrocodone Bitart (Lortab 5/325) 1 tab PRN Q6HRS PRN PO MODERATE TO SEVERE PAIN Last administered on 11/29/16 10:33; Start 11/28/16 at 20:30 Hydralazine HCl (Apresoline) 10 mg PRN Q4HRS PRN IVP ELEVATED BP, SEE COMMENTS ; Start 11/28/16 at 20:30; Status Cancel Ondansetron HCl (Zofran) 4 mg PRN Q8HRS PRN IV NAUSEA/VOMITING; Start 11/28/16 at 20:30; Status Cancel Albuterol Sulfate (Ventolin Neb Soln) 2.5 mg PRN Q4HRS PRN NEB SHORTNESS OF BREATH; Start 11/28/16 at 20:30; Status Cancel Acetaminophen (Tylenol) 325 mg PRN Q6HRS PRN PO MILD PAIN / TEMP; Start at 20:45 Acetaminophen/ Hydrocodone Bitart (Lortab 5/325) 1 tab PRN Q6HRS PRN PO MODERATE TO SEVERE PAIN; Start 11/28/16 at 20:45 Hydralazine HCl (Apresoline) 10 mg PRN Q4HRS PRN IVP ELEVATED BP, SEE COMMENTS ; Start 11/28/16 at 20:45 Ondansetron HCl (Zofran) 4 mg PRN Q8HRS PRN IV NAUSEA/VOMITING; Start 11/28/16 at 20:45; Stop 11/29/16 at 10:11; Status DC Albuterol Sulfate (Ventolin Neb Soln) 2.5 mg PRN Q4HRS PRN NEB SHORTNESS OF BREATH; Start 11/28/16 at 20:45 Meclizine HCl (Antivert) 12.5 mg PRN Q6HRS PRN PO DIZZINESS Last administered on 11/29/16t 03:50; Start 11/28/16 at 20:45; Stop 11/29/16 at 10:11; Status DC Meclizine HCl (Antivert) 25 mg PRN Q6HRS PRN PO DIZZINESS Last administered on 11/29/16t 10:33; Start 11/29/16 at 10:15 Ondansetron HCl (Zofran) 4 mg PRN Q6HRS PRN IV NAUSEA/VOMITING; Start 11/29/16 at 20:45 Vitals/I & O Vital Sign - Last 24 Hours 11/28/16 11/28/16 11/28/16 11/28/16 14:42 15:40 16:40 17:40 Temp 98.2 98.2 Pulse 72 76 74 74 Resp 16 18 18 18 B/P 135/66 168/95 156/80 138/76 Pulse Ox 95 98 96 95 O2 Delivery Room Air Room Air Room Air Room Air 11/28/16 11/28/16 11/28/16 11/28/16 18:23 19:54 21:57 23:42 Temp 98.0 97.9 98.0 97.9 Pulse 76 69 64 Resp 18 20 18 B/P 140/85 145/89 122/80 Pulse Ox 95 97 96 O2 Delivery Room Air Room Air Room Air Room Air 11/29/16 11/29/16 11/29/16 11/29/16 03:55 07:45 07:59 10:33 Temp 97.9 97.9 97.9 97.9 Pulse 68 61 Resp 16 20 B/P 118/61 122/64 Pulse Ox 63 95 O2 Delivery Room Air Room Air Room Air Room Air 11/29/16 11/29/16 10:37 11:45 Temp 97.9 97.9 Pulse 61 Resp 20 B/P 131/89 Pulse Ox 97 O2 Delivery Room Air Room Air Intake and Output 11/28/16 11/28/16 11/29/16 15:00 23:00 07:00 Intake Total 1000 ml 520 ml Balance 1000 ml 520 ml JOSE RAMON DONALD MD Nov 29, 2016 13:53
[2016-11-29] MEDS: MECLIZINE HCL 12.5 MG TABLET. PO SCH ×2 (14:00→21:59)
[2016-11-29] MEDS: FLUTICASONE 50MCG/NASAL SPRAY 16GM BOTTLE. NS SCH (14:00)
[2016-11-29] MEDS ORDERED: NICOTINE 21MG PATCH. TD PRN (14:00)
[2016-11-29] MEDS ORDERED: PROMETHAZINE 12.5 MG in IV NORMAL SALINE 50ML 50 ML IV PRN (14:00)
[2016-11-29] MEDS ORDERED: ACETAMINOPHEN 325 MG TABLET. PO PRN (14:00)
[2016-11-29] MEDS: CETIRIZINE HCL 10 MG TABLET PO SCH (14:34)
[2016-11-29] MEDS: IV NORMAL SALINE 1000ML BAG 1,000 ML IV SCH ×2 (14:35→23:46)
[2016-11-29 15:00] VITALS: BP 119/59
[2016-11-29] MEDS ORDERED: BUTALB/APAP/CAFEIN 50/325/40MG TABLET. PO PRN (16:45)
[2016-11-29 17:43] LABS: OBC FLU VALID
[2016-11-29] MEDS: PREDNISONE 10 MG TABLET PO SCH (18:16)
[2016-11-29] MEDS: tiZANidine 4 MG TABLET. PO SCH ×2 (18:16→21:59)
[2016-11-29] MEDS: PANTOPRAZOLE 40 MG TABLET. PO SCH (18:16)
[2016-11-29] MEDS: ASCORBIC ACID 500 MG TABLET PO SCH (18:16)
[2016-11-29 19:35] VITALS: BP 92/46
[2016-11-29] MEDS ORDERED: ONDANSETRON PF 4 MG/2 ML VIAL. IV PRN (20:45)
[2016-11-29] MEDS: DIAZEPAM 5 MG TABLET PO SCH (21:00)
[2016-11-29] MEDS: TAMSULOSIN 0.4 MG CAP.ER.24H. PO SCH (21:58)
[2016-11-29 23:53] VITALS: BP 73/31
[2016-11-30 00:38] VITALS: BP 103/64
[2016-11-30 03:17] VITALS: BP 102/53
[2016-11-30 05:31] LABS: BASO # 0.1 x10^3/uL (0.0-0.2); BASO % 1 % (0-3); EOS % 1 % (0-3); HEMATOCRIT 42.6 % (39.0-53.0); HEMOGLOBIN 14.5 g/dL (13.0-17.5); LYMPH # 2.2 x10^3/uL (1.0-4.8); LYMPH % 22 % (24-48); MEAN CORPUSCULAR HEMOGLOBIN 29 pg (25-35); MEAN CORPUSCULAR HGB CONC 34 g/dL (31-37); MEAN CORPUSCULAR VOLUME 84 fL (79-100); MONO % 8 % (0-9); NEUT % 68 % (31-73); PLATELET COUNT 311 x10^3/uL (140-400); RED BLOOD COUNT 5.08 x10^6/uL (4.30-5.70); RED CELL DISTRIBUTION WIDTH 14.3 % (11.5-14.5); WHITE BLOOD COUNT 9.9 x10^3/uL (4.0-11.0)
[2016-11-30 05:40] LABS: CALCIUM 8.4 mg/dL (8.5-10.1); GFR 78.5
[2016-11-30] MEDS: tiZANidine 4 MG TABLET. PO SCH ×3 (06:13→20:55)
[2016-11-30 07:00] VITALS: BP 109/51
--- NOTE | 2016-11-30 08:34 | CONS ---
DATE OF CONSULTATION: 11/29/2016 LOCATION: He is in room 670. The patient was seen at the request of Dr. Jerez. ATTENDING PHYSICIAN: Dr. Allen. HISTORY OF PRESENT ILLNESS: This is a 51-year-old right-handed male with history of hypertension and hyperlipidemia, not taking any medication for his hypertension. 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 The patient did go to the gym yesterday morning around 5 o'clock. Around noon on 11/28/2016, he developed symptoms of vertigo, feeling room and self spinning, headache, unsteadiness and photophobia without any weakness or numbness in the extremities. He also admits some left earache. The patient was admitted through the Emergency Room. No history of previous chronic headache, ataxia, projectile vomiting, aphasia, numbness or weakness. He had radiological studies including CT scan of the brain, which failed to reveal any abnormality. MRI scan of the brain also failed to reveal any acute abnormality, tiny focus of signal abnormality in the white matter is likely chronic small vessel disease and carotid Doppler studies failed to reveal any evidence of stenosis, moderate size left thyroid nodule is incidentally noted. The patient continuous with dizziness may be somewhat better with meclizine. He also admits neck pain and left earache and he continues with the balance problems. He is urinating alright. No bowel movement. The patient lives with his in a [facility] home, had no stairs for him to manage at home, but there are stairs to manage at work. The patient works in a trailer. The patient had some problems with knee joint pain while he is in the [employer] and he had cortisone injections done in the past and also arthroscopic surgery to his knees in the past. THE PATIENT HAD ALLERGY TO ASPIRIN AND ALSO USED TO TAKE MOTRIN, BUT HE HAD BROKEN OUT WITH A RASH LAST TIME HE TOOK MOTRIN. PHYSICAL EXAMINATION: Today revealed a middle-aged, well-built male patient is alert, oriented to time, place, person and circumstance and follows commands appropriately. No obvious facial asymmetry or visual field cut noted. No diplopia noted. He had tenderness to palpation over cervical paraspinal muscles extending over to upper trapezius and upper thoracic paraspinal muscles. He has some pain on range of motion of his cervical spine. He had 5/5 grade muscle strength in his upper and lower extremities and deep tendon reflexes are 1+ and symmetrical and he had equal perception of touch and pinprick sensation bilaterally. Plantar reflex is flexor bilaterally. The patient is independent with bed mobility and transfers. He had difficulty to try to walk on level surface. He had more difficulty to try to walk on a straight line, 1 foot in front of other. His skin is intact at this time. He had crepitus on range of motion of his knee joints without any obvious knee joint effusion and he had pain-free range of motion of all 4 extremity joints. Negative Rhomberg sign. He felt more dizzy when he closed his eyes, when he standing up, but did not lose any balance. ASSESSMENT: A middle-aged male with known hyperlipidemia with sudden onset of dizziness, neck pain, headache, photophobia and ataxia on 11/28/2016. RECOMMENDATION: To ask occupational therapy to see, to ask physical therapy to try physical modalities, continue working on his balance activities and to try him on Valium, tizanidine and prednisolone. Dr. Jerez, I appreciate asking me to participate in care of this interesting patient. I will be glad to follow him with you as needed for the rehabilitation to consider trigger point injection with right cervical paraspinal muscles. If neck pain and headache persists, I will be glad to see him for a followup with you on as needed basis. LLUVIA ESPINOZA MD DR: CARLOS/zhao JOB#: [id number] / [id number]
[2016-11-30] MEDS ORDERED: CONTRAST GIVEN MC PRN (08:45)
[2016-11-30] MEDS ORDERED: IOHEXOL 350 MG/ML 100ML VIAL. IV ONE (08:45)
[2016-11-30] MEDS: MECLIZINE HCL 12.5 MG TABLET. PO SCH ×3 (08:46→20:55)
[2016-11-30] MEDS: PREDNISONE 10 MG TABLET PO SCH (08:46)
[2016-11-30] MEDS: CETIRIZINE HCL 10 MG TABLET PO SCH (08:46)
[2016-11-30] MEDS: ASCORBIC ACID 500 MG TABLET PO SCH (08:46)
[2016-11-30] MEDS: PANTOPRAZOLE 40 MG TABLET. PO SCH (08:46)
[2016-11-30] MEDS: FLUTICASONE 50MCG/NASAL SPRAY 16GM BOTTLE. NS SCH (09:00)
[2016-11-30] MEDS ORDERED: ATOR10TA PO (09:11)
[2016-11-30] MEDS ORDERED: TRAM50TA PO (09:11)
--- NOTE | 2016-11-30 10:20 | PDOC ---
PROGRESS NOTES Assessment Problems Medical Problems: (1) Dizziness Status: Acute (2) Tinnitus Status: Acute Peripheral vertigo, no evidence of central cause, but tinnitus is worrisome. No sign of hearing loss, though. He also has neck pain and Dr. Gibson has ordered MRI of the cervical spine and CT angiogram, which are reasonable Plan Continue supportive care, Zofran, meclizine, Lortab PRN Outpatient ENT consult Steroids would be indicated for acute hearing loss but such is not the case here. If he does well today, perhaps he can be discharged after the studies are done today. Subjective Tinnitus is better, headache is better, still feels a little dizzy, but able to eat breakfast today without problems Objective Vital Signs Date Time Temp Pulse Resp B/P Pulse Ox O2 Delivery O2 Flow Rate FiO2 11/30/16 07:00 97.9 59 20 109/51 96 Room Air 97.9 Intake and Output 11/30/16 07:00 Intake Total 591 ml Balance 591 ml Intake Oral 400 ml IV Total 191 ml # Voids 6 PHYSICAL EXAM Alert. Oriented to time, place and person. PERRL. EOMI. CN: no focal findings. Normal hearing Muscle tone: normal. Muscle strength: 5/5 DTR: 2+ Plantar reflex: flexor Gait: still a little unsteady Sensory exam: no abnormal findings. No cerebellar signs elicited. Review of Relevant I have reviewed the following items zeke (where applicable) has been applied. Labs Laboratory Tests Test 11/28/16 15:17 11/29/16 03:25 11/29/16 15:30 11/30/16 05:00 White Blood Count 12.5x10^3/uL (4.0-11.0) 9.7x10^3/uL (4.0-11.0) 9.9x10^3/uL (4.0-11.0) Red Blood Count 5.34x10^6/uL (4.30-5.70) 5.14x10^6/uL (4.30-5.70) 5.08x10^6/uL (4.30-5.70) Hemoglobin 15.4g/dL (13.0-17.5) 14.6g/dL (13.0-17.5) 14.5g/dL (13.0-17.5) Hematocrit 44.9% (39.0-53.0) 44.2% (39.0-53.0) 42.6% (39.0-53.0) Mean Corpuscular Volume 84fL (79-100) 86fL (79-100) 84fL (79-100) Mean Corpuscular Hemoglobin 29pg (25-35) 29pg (25-35) 29pg (25-35) Mean Corpuscular Hemoglobin Concent 34g/dL (31-37) 33g/dL (31-37) 34g/dL (31-37) Red Cell Distribution Width 14.3% (11.5-14.5) 14.3% (11.5-14.5) 14.3% (11.5-14.5) Platelet Count 323x10^3/uL (140-400) 315x10^3/uL (140-400) 311x10^3/uL (140-400) Neutrophils (%) (Auto) 72% (31-73) 52% (31-73) 68% (31-73) Lymphocytes (%) (Auto) 15% (24-48) 32% (24-48) 22% (24-48) Monocytes (%) (Auto) 10% (0-9) 11% (0-9) 8% (0-9) Eosinophils (%) (Auto) 3% (0-3) 5% (0-3) 1% (0-3) Basophils (%) (Auto) 1% (0-3) 1% (0-3) 1% (0-3) Neutrophils # (Auto) 8.9x10^3uL (1.8-7.7) 5.0x10^3uL (1.8-7.7) 6.8x10^3uL (1.8-7.7) Lymphocytes # (Auto) 1.9x10^3/uL (1.0-4.8) 3.0x10^3/uL (1.0-4.8) 2.2x10^3/uL (1.0-4.8) Monocytes # (Auto) 1.2x10^3/uL (0.0-1.1) 1.0x10^3/uL (0.0-1.1) 0.8x10^3/uL (0.0-1.1) Eosinophils # (Auto) 0.4x10^3/uL (0.0-0.7) 0.5x10^3/uL (0.0-0.7) 0.1x10^3/uL (0.0-0.7) Basophils # (Auto) 0.1x10^3/uL (0.0-0.2) 0.1x10^3/uL (0.0-0.2) 0.1x10^3/uL (0.0-0.2) Sodium Level 140mmol/L (136-145) 144mmol/L (136-145) 141mmol/L (136-145) Potassium Level 4.0mmol/L (3.5-5.1) 4.0mmol/L (3.5-5.1) 4.0mmol/L (3.5-5.1) Chloride Level 105mmol/L (98-107) 108mmol/L (98-107) 106mmol/L (98-107) Carbon Dioxide Level 26mmol/L (21-32) 27mmol/L (21-32) 27mmol/L (21-32) Anion Gap 9 (6-14) 9 (6-14) 8 (6-14) Blood Urea Nitrogen 12mg/dL (8-26) 10mg/dL (8-26) 12mg/dL (8-26) Creatinine 1.0mg/dL (0.7-1.3) 1.0mg/dL (0.7-1.3) 1.0mg/dL (0.7-1.3) Estimated GFR (Cockcroft-Gault) 78.5 78.5 78.5 Glucose Level 103mg/dL (70-99) 104mg/dL (70-99) 113mg/dL (70-99) Calcium Level 9.1mg/dL (8.5-10.1) 8.6mg/dL (8.5-10.1) 8.4mg/dL (8.5-10.1) Triglycerides Level 83mg/dL (0-150) Cholesterol Level 130mg/dL (0-200) LDL Cholesterol, Calculated 79mg/dL (0-100) VLDL Cholesterol, Calculated 17mg/dL (0-40) HDL Cholesterol 34mg/dL (40-60) Cholesterol/HDL Ratio 3.8 Thyroid Stimulating Hormone (TSH) 2.423uIU/mL (0.358-3.74) Influenza Type A Antigen Negative (NEGATIVE) Influenza Type B Antigen Negative (NEGATIVE) Laboratory Tests Test 11/29/16 15:30 11/30/16 05:00 Influenza Type A Antigen Negative (NEGATIVE) Influenza Type B Antigen Negative (NEGATIVE) White Blood Count 9.9x10^3/uL (4.0-11.0) Red Blood Count 5.08x10^6/uL (4.30-5.70) Hemoglobin 14.5g/dL (13.0-17.5) Hematocrit 42.6% (39.0-53.0) Mean Corpuscular Volume 84fL (79-100) Mean Corpuscular Hemoglobin 29pg (25-35) Mean Corpuscular Hemoglobin Concent 34g/dL (31-37) Red Cell Distribution Width 14.3% (11.5-14.5) Platelet Count 311x10^3/uL (140-400) Neutrophils (%) (Auto) 68% (31-73) Lymphocytes (%) (Auto) 22% (24-48) Monocytes (%) (Auto) 8% (0-9) Eosinophils (%) (Auto) 1% (0-3) Basophils (%) (Auto) 1% (0-3) Neutrophils # (Auto) 6.8x10^3uL (1.8-7.7) Lymphocytes # (Auto) 2.2x10^3/uL (1.0-4.8) Monocytes # (Auto) 0.8x10^3/uL (0.0-1.1) Eosinophils # (Auto) 0.1x10^3/uL (0.0-0.7) Basophils # (Auto) 0.1x10^3/uL (0.0-0.2) Sodium Level 141mmol/L (136-145) Potassium Level 4.0mmol/L (3.5-5.1) Chloride Level 106mmol/L (98-107) Carbon Dioxide Level 27mmol/L (21-32) Anion Gap 8 (6-14) Blood Urea Nitrogen 12mg/dL (8-26) Creatinine 1.0mg/dL (0.7-1.3) Estimated GFR (Cockcroft-Gault) 78.5 Glucose Level 113mg/dL (70-99) Calcium Level 8.4mg/dL (8.5-10.1) Medications Current Medications Sodium Chloride (Iv Sodium Chloride 0.9% 1000ml Bag) 1,000 ml @ 1,000 mls/hr Q1H IV Last administered on 11/28/16 15:24; Start 11/28/16 at 14:56; Stop at 15:55; Status DC Meclizine HCl (Antivert) 25 mg 1X ONCE PO Last administered on 11/28/16 15:24 ; Start 11/28/16 at 15:00; Stop 11/28/16 at 15:02; Status DC Acetaminophen (Tylenol) 500 mg 1X ONCE PO Last administered on 11/28/16 16:33 ; Start 11/28/16 at 16:30; Stop 11/28/16 at 16:31; Status DC Diazepam (Valium) 2 mg 1X ONCE IV Last administered on 11/28/16 16:34; Start 11/28/16 at 16:30; Stop 11/28/16 at 16:31; Status DC Ondansetron HCl (Zofran) 4 mg PRN Q8HRS PRN IV NAUSEA/VOMITING Last administered on 11/28/16 19:44; Start 11/28/16 at 19:00; Stop 11/29/16 at 18:59 ; Status DC Acetaminophen (Tylenol) 650 mg PRN Q4HRS PRN PO FEVER; Start 11/28/16 at 19:00 ; Stop 11/29/16 at 18:59; Status DC Acetaminophen (Tylenol) 325 mg PRN Q6HRS PRN PO MILD PAIN / TEMP; Start at 20:30; Stop 11/29/16 at 13:49; Status DC Acetaminophen/ Hydrocodone Bitart (Lortab 5/325) 1 tab PRN Q6HRS PRN PO MODERATE TO SEVERE PAIN Last administered on 11/29/16 16:32; Start 11/28/16 at 20:30 Hydralazine HCl (Apresoline) 10 mg PRN Q4HRS PRN IVP ELEVATED BP, SEE COMMENTS ; Start 11/28/16 at 20:30; Status Cancel Ondansetron HCl (Zofran) 4 mg PRN Q8HRS PRN IV NAUSEA/VOMITING; Start 11/28/16 at 20:30; Status Cancel Albuterol Sulfate (Ventolin Neb Soln) 2.5 mg PRN Q4HRS PRN NEB SHORTNESS OF BREATH; Start 11/28/16 at 20:30; Status Cancel Acetaminophen (Tylenol) 325 mg PRN Q6HRS PRN PO MILD PAIN / TEMP; Start at 20:45; Stop 11/29/16 at 13:49; Status DC Acetaminophen/ Hydrocodone Bitart (Lortab 5/325) 1 tab PRN Q6HRS PRN PO MODERATE TO SEVERE PAIN; Start 11/28/16 at 20:45; Stop 11/29/16 at 14:31; Status DC Hydralazine HCl (Apresoline) 10 mg PRN Q4HRS PRN IVP ELEVATED BP, SEE COMMENTS ; Start 11/28/16 at 20:45 Ondansetron HCl (Zofran) 4 mg PRN Q8HRS PRN IV NAUSEA/VOMITING; Start 11/28/16 at 20:45; Stop 11/29/16 at 10:11; Status DC Albuterol Sulfate (Ventolin Neb Soln) 2.5 mg PRN Q4HRS PRN NEB SHORTNESS OF BREATH; Start 11/28/16 at 20:45 Meclizine HCl (Antivert) 12.5 mg PRN Q6HRS PRN PO DIZZINESS Last administered on 11/29/16 03:50; Start 11/28/16 at 20:45; Stop 11/29/16 at 10:11; Status DC Meclizine HCl (Antivert) 25 mg PRN Q6HRS PRN PO DIZZINESS Last administered on 11/29/16t 10:33; Start 11/29/16 at 10:15; Stop 11/29/16 at 14:01; Status DC Ondansetron HCl (Zofran) 4 mg PRN Q6HRS PRN IV NAUSEA/VOMITING 1ST CHOICE; Start 11/29/16 at 20:45 Acetaminophen (Tylenol) 650 mg PRN Q6HRS PRN PO MILD PAIN / TEMP; Start at 14:00 Meclizine HCl 25 mg 25 mg TID PO Last administered on 11/30/16 08:46; Start at 14:00 Promethazine HCl/ Sodium Chloride (Phenergan/Iv Sodium Chloride 0.9% 50ml) 50.5 ml @ 151.5 mls/ hr PRN Q6HRS PRN IV NAUSEA/VOMITING; Start 11/29/16 at 14:00 Fluticasone Propionate (Flonase) 2 spray DAILY NS ; Start 11/29/16 at 14:00 Cetirizine HCl 10 mg 10 mg DAILY PO Last administered on 11/30/16 08:46; Start 11/29/16 at 14:00 Sodium Chloride (Iv Sodium Chloride 0.9% 1000ml Bag) 1,000 ml @ 100 mls/hr Q10H IV Last administered on 11/29/16 23:46; Start 11/29/16 at 14:00 Nicotine (Nicoderm Cq 21mg) 1 patch PRN DAILY PRN TD SMOKING CESSATION; Start 11/29/16 at 14:00 Diazepam (Valium) 5 mg HS PO ; Start 11/29/16 at 21:00 Acetaminophen/ Butalbital/ Caffeine (Fioricet) 2 tab PRN Q6HRS PRN PO MIGRAINE HEADACHE; Start 11/29/16 at 16:45 Prednisone (Prednisone) 10 mg DAILY PO Last administered on 11/30/16 08:46; Start 11/29/16 at 17:00 Tizanidine HCl (Zanaflex) 4 mg Q8HRS PO Last administered on 11/30/16 06:13; Start 11/29/16 at 17:00 Pantoprazole Sodium (Protonix) 40 mg DAILYAC PO Last administered on 11/30/16 08:46; Start 11/29/16 at 17:00 Tamsulosin HCl (Flomax) 0.4 mg QHS PO Last administered on 11/29/16 21:58; Start 11/29/16 at 21:00 Ascorbic Acid (Vitamin C) 500 mg DAILY PO Last administered on 11/30/16 08:46 ; Start 11/29/16 at 17:00 Iohexol (Omnipaque 350 Mg/ml) 75 ml 1X ONCE IV ; Start 11/30/16 at 08:45; Stop 11/30/16 at 08:46; Status DC Info (Do NOT chart on this entry -- for MONITORING) 1 each PRN DAILY PRN MC SEE COMMENTS; Start 11/30/16 at 08:45; Stop 12/02/16 at 08:44 Active Scripts Active Reported Tramadol Hcl 50 Mg Tablet 1 Tab PO TID PRN Lipitor (Atorvastatin Calcium) 10 Mg Tablet 1 Tab PO QHS Vitals/I & O Vital Sign - Last 24 Hours 11/29/16 11/29/16 11/29/16 11/29/16 10:33 10:37 15:00 16:32 Temp 97.9 98.4 97.9 98.4 Pulse 61 58 Resp 20 20 B/P 131/89 119/59 Pulse Ox 97 95 O2 Delivery Room Air Room Air Room Air Room Air 11/29/16 11/29/16 11/29/16 11/29/16 18:16 19:35 21:00 23:53 Temp 98.1 97.9 98.1 97.9 Pulse 67 51 Resp 16 16 B/P 92/46 73/31 Pulse Ox 94 94 O2 Delivery Room Air Room Air Room Air Room Air 11/30/16 11/30/16 11/30/16 00:38 03:17 07:00 Temp 97.5 97.9 97.5 97.9 Pulse 51 59 Resp 16 20 B/P 103/64 102/53 109/51 Pulse Ox 95 96 O2 Delivery Room Air Room Air Intake and Output 11/29/16 11/29/16 11/30/16 15:00 23:00 07:00 Intake Total 291 ml 300 ml Balance 291 ml 300 ml THOMPSON VALDOVINOS MD Nov 30, 2016 10:20
--- NOTE | 2016-11-30 12:30 | RAD ---
MR CERVICAL SPINE HISTORY:NECK PAIN AND STIFFNESS, DIZZINESS, NO SX HX, NO PRIORSReason: neck pain and dizziness acute onset, A.M. OK PER MENIEKA / Spl. Instructions: / History: COMPARISON: Technique: Sagittal T2, sagittal STIR, sagittal T1, and axial gradient echo imaging was obtained of the cervical spine. FINDINGS: Vertebral body height and alignment is maintained throughout the cervical spine. Normal cervical lordosis is preserved. The lateral masses of C1 are aligned on C2. No abnormal bone marrow signal is seen. The cord is of normal caliber with no abnormal signal. Level by level analysis demonstrates no significant central or neural foraminal stenosis. There is a 3.3 centimeter T2 hyperintense mass associated with the left lobe of the thyroid. Limited evaluation of the posterior fossa on T2 weighted images reveals no abnormality. IMPRESSION: - Unremarkable MR examination of cervical spine without contrast. No abnormal cord signal is identified. - 3.3 centimeter left lobe thyroid mass. Consider further evaluation with thyroid ultrasound. Electronically signed by: Luis Sierra (Nov 30, 2016 12:29:02)
--- NOTE | 2016-11-30 13:36 | RAD ---
EXAM: CT ANGIOGRAPHY OF THE NECK WITH AND WITHOUT INTRAVENOUS CONTRAST. HISTORY: Dizziness, neck pain. Assess for carotid dissection. TECHNIQUE: Computed tomographic angiography of the neck was performed before and after the intravenous administration of 75 mL Omnipaque 300. 3-D maximum intensity projections were also performed. COMPARISON: None. FINDINGS: Images of the lung apices reveal a calcified right upper lobe granuloma. Bone windows reveal no suspicious lesions. There is a small left thyroid goiter measuring 3.7 x 2.6 cm containing a hypoattenuating nodule. The adenoids are prominent. There are no clear laryngeal or pharyngeal masses. There are no pathologically enlarged lymph nodes. The submandibular glands and parotid glands are unremarkable. The aortic arch is a typical branching pattern. Both common and internal carotid arteries are patent without stenosis. No dissection is identified. The vertebral arteries are dominant and also patent without stenosis. Both external carotid systems are patent. Limited images of the intracranial circulation reveal no stenosis or aneurysm. IMPRESSION: 1. No carotid stenosis, dissection or aneurysm. 2. 3.7 cm hypoattenuating nodule in the left thyroid lobe. This is most likely multinodular goiter. Sonography could further evaluate if there is persistent concern. *One or more of the following individualized dose reduction techniques were utilized for this examination: 1. Automated exposure control. 2. Adjustment of the mA and/or kV according to patient size. 3. Use of iterative reconstruction technique.
--- NOTE | 2016-11-30 14:15 | PDOC ---
PROGRESS NOTES Chief Complaint Chief Complaint 1. Dizziness, vertigo and tinnitus most likely peripheral rather dense central causes. 2. Hypertension. 3. Hyperlipidemia. 4. Obesity. 5. Nicotine use. History of Present Illness History of Present Illness Better today but still weak and dizzy Still dragging his R leg per but less than yesterday HAd CTA and mRI done today , results pending HAs not been seen by physiatry yet nor pT/OT bec he was having the tests PLan: COnt meclizine TID scheduled Await MRI and CTA Await Physiatry Dw - pt wants to go home soon, if better and imaging neg then might be able to go home kamron, pending tests Vitals Vitals Vital Signs Date Time Temp Pulse Resp B/P Pulse Ox O2 Delivery O2 Flow Rate FiO2 11/30/16 08:00 Room Air 11/30/16 07:00 97.9 59 20 109/51 96 97.9 Physical Exam General: No acute distress, Other (feels sick) Heart: Regular rate, Normal S1, Normal S2 Lungs: Clear Abdomen: Normal bowel sounds, Soft Extremities: No clubbing, No cyanosis Skin: No rashes, No breakdown Labs LABS Laboratory Tests Test 11/29/16 15:30 11/30/16 05:00 Influenza Type A Antigen Negative (NEGATIVE) Influenza Type B Antigen Negative (NEGATIVE) White Blood Count 9.9x10^3/uL (4.0-11.0) Red Blood Count 5.08x10^6/uL (4.30-5.70) Hemoglobin 14.5g/dL (13.0-17.5) Hematocrit 42.6% (39.0-53.0) Mean Corpuscular Volume 84fL (79-100) Mean Corpuscular Hemoglobin 29pg (25-35) Mean Corpuscular Hemoglobin Concent 34g/dL (31-37) Red Cell Distribution Width 14.3% (11.5-14.5) Platelet Count 311x10^3/uL (140-400) Neutrophils (%) (Auto) 68% (31-73) Lymphocytes (%) (Auto) 22% (24-48) Monocytes (%) (Auto) 8% (0-9) Eosinophils (%) (Auto) 1% (0-3) Basophils (%) (Auto) 1% (0-3) Neutrophils # (Auto) 6.8x10^3uL (1.8-7.7) Lymphocytes # (Auto) 2.2x10^3/uL (1.0-4.8) Monocytes # (Auto) 0.8x10^3/uL (0.0-1.1) Eosinophils # (Auto) 0.1x10^3/uL (0.0-0.7) Basophils # (Auto) 0.1x10^3/uL (0.0-0.2) Sodium Level 141mmol/L (136-145) Potassium Level 4.0mmol/L (3.5-5.1) Chloride Level 106mmol/L (98-107) Carbon Dioxide Level 27mmol/L (21-32) Anion Gap 8 (6-14) Blood Urea Nitrogen 12mg/dL (8-26) Creatinine 1.0mg/dL (0.7-1.3) Estimated GFR (Cockcroft-Gault) 78.5 Glucose Level 113mg/dL (70-99) Calcium Level 8.4mg/dL (8.5-10.1) Review of Systems Review of Systems dizzy,w eak, no appetite Assessment and Plan Assessmemt and Plan Problems Medical Problems: (1) Dizziness Status: Acute (2) Tinnitus Status: Acute Problems: Comment Review of Relevant I have reviewed the following items zeke (where applicable) has been applied. Labs Laboratory Tests Test 11/28/16 15:17 11/29/16 03:25 11/29/16 15:30 11/30/16 05:00 White Blood Count 12.5x10^3/uL (4.0-11.0) 9.7x10^3/uL (4.0-11.0) 9.9x10^3/uL (4.0-11.0) Red Blood Count 5.34x10^6/uL (4.30-5.70) 5.14x10^6/uL (4.30-5.70) 5.08x10^6/uL (4.30-5.70) Hemoglobin 15.4g/dL (13.0-17.5) 14.6g/dL (13.0-17.5) 14.5g/dL (13.0-17.5) Hematocrit 44.9% (39.0-53.0) 44.2% (39.0-53.0) 42.6% (39.0-53.0) Mean Corpuscular Volume 84fL (79-100) 86fL (79-100) 84fL (79-100) Mean Corpuscular Hemoglobin 29pg (25-35) 29pg (25-35) 29pg (25-35) Mean Corpuscular Hemoglobin Concent 34g/dL (31-37) 33g/dL (31-37) 34g/dL (31-37) Red Cell Distribution Width 14.3% (11.5-14.5) 14.3% (11.5-14.5) 14.3% (11.5-14.5) Platelet Count 323x10^3/uL (140-400) 315x10^3/uL (140-400) 311x10^3/uL (140-400) Neutrophils (%) (Auto) 72% (31-73) 52% (31-73) 68% (31-73) Lymphocytes (%) (Auto) 15% (24-48) 32% (24-48) 22% (24-48) Monocytes (%) (Auto) 10% (0-9) 11% (0-9) 8% (0-9) Eosinophils (%) (Auto) 3% (0-3) 5% (0-3) 1% (0-3) Basophils (%) (Auto) 1% (0-3) 1% (0-3) 1% (0-3) Neutrophils # (Auto) 8.9x10^3uL (1.8-7.7) 5.0x10^3uL (1.8-7.7) 6.8x10^3uL (1.8-7.7) Lymphocytes # (Auto) 1.9x10^3/uL (1.0-4.8) 3.0x10^3/uL (1.0-4.8) 2.2x10^3/uL (1.0-4.8) Monocytes # (Auto) 1.2x10^3/uL (0.0-1.1) 1.0x10^3/uL (0.0-1.1) 0.8x10^3/uL (0.0-1.1) Eosinophils # (Auto) 0.4x10^3/uL (0.0-0.7) 0.5x10^3/uL (0.0-0.7) 0.1x10^3/uL (0.0-0.7) Basophils # (Auto) 0.1x10^3/uL (0.0-0.2) 0.1x10^3/uL (0.0-0.2) 0.1x10^3/uL (0.0-0.2) Sodium Level 140mmol/L (136-145) 144mmol/L (136-145) 141mmol/L (136-145) Potassium Level 4.0mmol/L (3.5-5.1) 4.0mmol/L (3.5-5.1) 4.0mmol/L (3.5-5.1) Chloride Level 105mmol/L (98-107) 108mmol/L (98-107) 106mmol/L (98-107) Carbon Dioxide Level 26mmol/L (21-32) 27mmol/L (21-32) 27mmol/L (21-32) Anion Gap 9 (6-14) 9 (6-14) 8 (6-14) Blood Urea Nitrogen 12mg/dL (8-26) 10mg/dL (8-26) 12mg/dL (8-26) Creatinine 1.0mg/dL (0.7-1.3) 1.0mg/dL (0.7-1.3) 1.0mg/dL (0.7-1.3) Estimated GFR (Cockcroft-Gault) 78.5 78.5 78.5 Glucose Level 103mg/dL (70-99) 104mg/dL (70-99) 113mg/dL (70-99) Calcium Level 9.1mg/dL (8.5-10.1) 8.6mg/dL (8.5-10.1) 8.4mg/dL (8.5-10.1) Triglycerides Level 83mg/dL (0-150) Cholesterol Level 130mg/dL (0-200) LDL Cholesterol, Calculated 79mg/dL (0-100) VLDL Cholesterol, Calculated 17mg/dL (0-40) HDL Cholesterol 34mg/dL (40-60) Cholesterol/HDL Ratio 3.8 Thyroid Stimulating Hormone (TSH) 2.423uIU/mL (0.358-3.74) Influenza Type A Antigen Negative (NEGATIVE) Influenza Type B Antigen Negative (NEGATIVE) Laboratory Tests Test 11/29/16 15:30 11/30/16 05:00 Influenza Type A Antigen Negative (NEGATIVE) Influenza Type B Antigen Negative (NEGATIVE) White Blood Count 9.9x10^3/uL (4.0-11.0) Red Blood Count 5.08x10^6/uL (4.30-5.70) Hemoglobin 14.5g/dL (13.0-17.5) Hematocrit 42.6% (39.0-53.0) Mean Corpuscular Volume 84fL (79-100) Mean Corpuscular Hemoglobin 29pg (25-35) Mean Corpuscular Hemoglobin Concent 34g/dL (31-37) Red Cell Distribution Width 14.3% (11.5-14.5) Platelet Count 311x10^3/uL (140-400) Neutrophils (%) (Auto) 68% (31-73) Lymphocytes (%) (Auto) 22% (24-48) Monocytes (%) (Auto) 8% (0-9) Eosinophils (%) (Auto) 1% (0-3) Basophils (%) (Auto) 1% (0-3) Neutrophils # (Auto) 6.8x10^3uL (1.8-7.7) Lymphocytes # (Auto) 2.2x10^3/uL (1.0-4.8) Monocytes # (Auto) 0.8x10^3/uL (0.0-1.1) Eosinophils # (Auto) 0.1x10^3/uL (0.0-0.7) Basophils # (Auto) 0.1x10^3/uL (0.0-0.2) Sodium Level 141mmol/L (136-145) Potassium Level 4.0mmol/L (3.5-5.1) Chloride Level 106mmol/L (98-107) Carbon Dioxide Level 27mmol/L (21-32) Anion Gap 8 (6-14) Blood Urea Nitrogen 12mg/dL (8-26) Creatinine 1.0mg/dL (0.7-1.3) Estimated GFR (Cockcroft-Gault) 78.5 Glucose Level 113mg/dL (70-99) Calcium Level 8.4mg/dL (8.5-10.1) Medications Current Medications Sodium Chloride (Iv Sodium Chloride 0.9% 1000ml Bag) 1,000 ml @ 1,000 mls/hr Q1H IV Last administered on 11/28/16 15:24; Start 11/28/16 at 14:56; Stop at 15:55; Status DC Meclizine HCl (Antivert) 25 mg 1X ONCE PO Last administered on 11/28/16 15:24 ; Start 11/28/16 at 15:00; Stop 11/28/16 at 15:02; Status DC Acetaminophen (Tylenol) 500 mg 1X ONCE PO Last administered on 11/28/16 16:33 ; Start 11/28/16 at 16:30; Stop 11/28/16 at 16:31; Status DC Diazepam (Valium) 2 mg 1X ONCE IV Last administered on 11/28/16 16:34; Start 11/28/16 at 16:30; Stop 11/28/16 at 16:31; Status DC Ondansetron HCl (Zofran) 4 mg PRN Q8HRS PRN IV NAUSEA/VOMITING Last administered on 11/28/16 19:44; Start 11/28/16 at 19:00; Stop 11/29/16 at 18:59 ; Status DC Acetaminophen (Tylenol) 650 mg PRN Q4HRS PRN PO FEVER; Start 11/28/16 at 19:00 ; Stop 11/29/16 at 18:59; Status DC Acetaminophen (Tylenol) 325 mg PRN Q6HRS PRN PO MILD PAIN / TEMP; Start at 20:30; Stop 11/29/16 at 13:49; Status DC Acetaminophen/ Hydrocodone Bitart (Lortab 5/325) 1 tab PRN Q6HRS PRN PO MODERATE TO SEVERE PAIN Last administered on 11/29/16 16:32; Start 11/28/16 at 20:30 Hydralazine HCl (Apresoline) 10 mg PRN Q4HRS PRN IVP ELEVATED BP, SEE COMMENTS ; Start 11/28/16 at 20:30; Status Cancel Ondansetron HCl (Zofran) 4 mg PRN Q8HRS PRN IV NAUSEA/VOMITING; Start 11/28/16 at 20:30; Status Cancel Albuterol Sulfate (Ventolin Neb Soln) 2.5 mg PRN Q4HRS PRN NEB SHORTNESS OF BREATH; Start 11/28/16 at 20:30; Status Cancel Acetaminophen (Tylenol) 325 mg PRN Q6HRS PRN PO MILD PAIN / TEMP; Start at 20:45; Stop 11/29/16 at 13:49; Status DC Acetaminophen/ Hydrocodone Bitart (Lortab 5/325) 1 tab PRN Q6HRS PRN PO MODERATE TO SEVERE PAIN; Start 11/28/16 at 20:45; Stop 11/29/16 at 14:31; Status DC Hydralazine HCl (Apresoline) 10 mg PRN Q4HRS PRN IVP ELEVATED BP, SEE COMMENTS ; Start 11/28/16 at 20:45 Ondansetron HCl (Zofran) 4 mg PRN Q8HRS PRN IV NAUSEA/VOMITING; Start 11/28/16 at 20:45; Stop 11/29/16 at 10:11; Status DC Albuterol Sulfate (Ventolin Neb Soln) 2.5 mg PRN Q4HRS PRN NEB SHORTNESS OF BREATH; Start 11/28/16 at 20:45 Meclizine HCl (Antivert) 12.5 mg PRN Q6HRS PRN PO DIZZINESS Last administered on 11/29/16 03:50; Start 11/28/16 at 20:45; Stop 11/29/16 at 10:11; Status DC Meclizine HCl (Antivert) 25 mg PRN Q6HRS PRN PO DIZZINESS Last administered on 11/29/16t 10:33; Start 11/29/16 at 10:15; Stop 11/29/16 at 14:01; Status DC Ondansetron HCl (Zofran) 4 mg PRN Q6HRS PRN IV NAUSEA/VOMITING 1ST CHOICE; Start 11/29/16 at 20:45 Acetaminophen (Tylenol) 650 mg PRN Q6HRS PRN PO MILD PAIN / TEMP; Start at 14:00 Meclizine HCl 25 mg 25 mg TID PO Last administered on 11/30/16 08:46; Start at 14:00 Promethazine HCl/ Sodium Chloride (Phenergan/Iv Sodium Chloride 0.9% 50ml) 50.5 ml @ 151.5 mls/ hr PRN Q6HRS PRN IV NAUSEA/VOMITING; Start 11/29/16 at 14:00 Fluticasone Propionate (Flonase) 2 spray DAILY NS ; Start 11/29/16 at 14:00 Cetirizine HCl 10 mg 10 mg DAILY PO Last administered on 11/30/16 08:46; Start 11/29/16 at 14:00 Sodium Chloride (Iv Sodium Chloride 0.9% 1000ml Bag) 1,000 ml @ 100 mls/hr Q10H IV Last administered on 11/29/16 23:46; Start 11/29/16 at 14:00 Nicotine (Nicoderm Cq 21mg) 1 patch PRN DAILY PRN TD SMOKING CESSATION; Start 11/29/16 at 14:00 Diazepam (Valium) 5 mg HS PO ; Start 11/29/16 at 21:00 Acetaminophen/ Butalbital/ Caffeine (Fioricet) 2 tab PRN Q6HRS PRN PO MIGRAINE HEADACHE; Start 11/29/16 at 16:45 Prednisone (Prednisone) 10 mg DAILY PO Last administered on 11/30/16 08:46; Start 11/29/16 at 17:00 Tizanidine HCl (Zanaflex) 4 mg Q8HRS PO Last administered on 11/30/16 06:13; Start 11/29/16 at 17:00 Pantoprazole Sodium (Protonix) 40 mg DAILYAC PO Last administered on 11/30/16 08:46; Start 11/29/16 at 17:00 Tamsulosin HCl (Flomax) 0.4 mg QHS PO Last administered on 11/29/16 21:58; Start 11/29/16 at 21:00 Ascorbic Acid (Vitamin C) 500 mg DAILY PO Last administered on 11/30/16 08:46 ; Start 11/29/16 at 17:00 Iohexol (Omnipaque 350 Mg/ml) 75 ml 1X ONCE IV Last administered on 11/30/16t 12:40; Start 11/30/16 at 08:45; Stop 11/30/16 at 08:46; Status DC Info (Do NOT chart on this entry -- for MONITORING) 1 each PRN DAILY PRN MC SEE COMMENTS; Start 11/30/16 at 08:45; Stop 12/02/16 at 08:44 Active Scripts Active Reported Tramadol Hcl 50 Mg Tablet 1 Tab PO TID PRN Lipitor (Atorvastatin Calcium) 10 Mg Tablet 1 Tab PO QHS Vitals/I & O Vital Sign - Last 24 Hours 11/29/16 11/29/16 11/29/16 11/29/16 15:00 16:32 18:16 19:35 Temp 98.4 98.1 98.4 98.1 Pulse 58 67 Resp 20 16 B/P 119/59 92/46 Pulse Ox 95 94 O2 Delivery Room Air Room Air Room Air Room Air 11/29/16 11/29/16 11/30/16 11/30/16 21:00 23:53 00:38 03:17 Temp 97.9 97.5 97.9 97.5 Pulse 51 51 Resp 16 16 B/P 73/31 103/64 102/53 Pulse Ox 94 95 O2 Delivery Room Air Room Air Room Air 11/30/16 11/30/16 07:00 08:00 Temp 97.9 97.9 Pulse 59 Resp 20 B/P 109/51 Pulse Ox 96 O2 Delivery Room Air Room Air Intake and Output 11/29/16 11/29/16 11/30/16 15:00 23:00 07:00 Intake Total 291 ml 300 ml Balance 291 ml 300 ml JOSE RAMON DONALD MD Nov 30, 2016 14:15
[2016-11-30 15:00] VITALS: BP 126/62
[2016-11-30] MEDS: IV NORMAL SALINE 1000ML BAG 1,000 ML IV SCH (15:07)
--- NOTE | 2016-11-30 16:42 | PDOC ---
PROGRESS NOTES Subjective Subjective No new complaints ut had an episode of loss of balance while in bathroom and lowered himself to the floor and no apparent injury. Objective Objective Vital Signs Date Time Temp Pulse Resp B/P Pulse Ox O2 Delivery O2 Flow Rate FiO2 11/30/16 15:00 98.0 84 20 126/62 94 Room Air 98.0 Intake and Output 11/30/16 07:00 Intake Total 591 ml Balance 591 ml Intake Oral 400 ml IV Total 191 ml # Voids 6 Physical Exam Physical Exam He is supine in bed and admits less pain and dissiness while up but still having balance problems while up walking with and he dis walk only for 25' with hand held assistance.Mri scan of cervical spine and CTA of neck were WNL except continued thyroid nodule. Assessment Assessment Problems Medical Problems: (1) Dizziness Status: Acute (2) Tinnitus Status: Acute Plan Plan of Care To consider transfer to rehab unit if problem persists.He probably needs ENT evaluation. Comment Review of Relevant I have reviewed the following items zeke (where applicable) has been applied. Labs Laboratory Tests Test 11/29/16 03:25 11/29/16 15:30 11/30/16 05:00 White Blood Count 9.7x10^3/uL (4.0-11.0) 9.9x10^3/uL (4.0-11.0) Red Blood Count 5.14x10^6/uL (4.30-5.70) 5.08x10^6/uL (4.30-5.70) Hemoglobin 14.6g/dL (13.0-17.5) 14.5g/dL (13.0-17.5) Hematocrit 44.2% (39.0-53.0) 42.6% (39.0-53.0) Mean Corpuscular Volume 86fL (79-100) 84fL (79-100) Mean Corpuscular Hemoglobin 29pg (25-35) 29pg (25-35) Mean Corpuscular Hemoglobin Concent 33g/dL (31-37) 34g/dL (31-37) Red Cell Distribution Width 14.3% (11.5-14.5) 14.3% (11.5-14.5) Platelet Count 315x10^3/uL (140-400) 311x10^3/uL (140-400) Neutrophils (%) (Auto) 52% (31-73) 68% (31-73) Lymphocytes (%) (Auto) 32% (24-48) 22% (24-48) Monocytes (%) (Auto) 11% (0-9) 8% (0-9) Eosinophils (%) (Auto) 5% (0-3) 1% (0-3) Basophils (%) (Auto) 1% (0-3) 1% (0-3) Neutrophils # (Auto) 5.0x10^3uL (1.8-7.7) 6.8x10^3uL (1.8-7.7) Lymphocytes # (Auto) 3.0x10^3/uL (1.0-4.8) 2.2x10^3/uL (1.0-4.8) Monocytes # (Auto) 1.0x10^3/uL (0.0-1.1) 0.8x10^3/uL (0.0-1.1) Eosinophils # (Auto) 0.5x10^3/uL (0.0-0.7) 0.1x10^3/uL (0.0-0.7) Basophils # (Auto) 0.1x10^3/uL (0.0-0.2) 0.1x10^3/uL (0.0-0.2) Sodium Level 144mmol/L (136-145) 141mmol/L (136-145) Potassium Level 4.0mmol/L (3.5-5.1) 4.0mmol/L (3.5-5.1) Chloride Level 108mmol/L (98-107) 106mmol/L (98-107) Carbon Dioxide Level 27mmol/L (21-32) 27mmol/L (21-32) Anion Gap 9 (6-14) 8 (6-14) Blood Urea Nitrogen 10mg/dL (8-26) 12mg/dL (8-26) Creatinine 1.0mg/dL (0.7-1.3) 1.0mg/dL (0.7-1.3) Estimated GFR (Cockcroft-Gault) 78.5 78.5 Glucose Level 104mg/dL (70-99) 113mg/dL (70-99) Calcium Level 8.6mg/dL (8.5-10.1) 8.4mg/dL (8.5-10.1) Triglycerides Level 83mg/dL (0-150) Cholesterol Level 130mg/dL (0-200) LDL Cholesterol, Calculated 79mg/dL (0-100) VLDL Cholesterol, Calculated 17mg/dL (0-40) HDL Cholesterol 34mg/dL (40-60) Cholesterol/HDL Ratio 3.8 Thyroid Stimulating Hormone (TSH) 2.423uIU/mL (0.358-3.74) Influenza Type A Antigen Negative (NEGATIVE) Influenza Type B Antigen Negative (NEGATIVE) Laboratory Tests Test 11/30/16 05:00 White Blood Count 9.9x10^3/uL (4.0-11.0) Red Blood Count 5.08x10^6/uL (4.30-5.70) Hemoglobin 14.5g/dL (13.0-17.5) Hematocrit 42.6% (39.0-53.0) Mean Corpuscular Volume 84fL (79-100) Mean Corpuscular Hemoglobin 29pg (25-35) Mean Corpuscular Hemoglobin Concent 34g/dL (31-37) Red Cell Distribution Width 14.3% (11.5-14.5) Platelet Count 311x10^3/uL (140-400) Neutrophils (%) (Auto) 68% (31-73) Lymphocytes (%) (Auto) 22% (24-48) Monocytes (%) (Auto) 8% (0-9) Eosinophils (%) (Auto) 1% (0-3) Basophils (%) (Auto) 1% (0-3) Neutrophils # (Auto) 6.8x10^3uL (1.8-7.7) Lymphocytes # (Auto) 2.2x10^3/uL (1.0-4.8) Monocytes # (Auto) 0.8x10^3/uL (0.0-1.1) Eosinophils # (Auto) 0.1x10^3/uL (0.0-0.7) Basophils # (Auto) 0.1x10^3/uL (0.0-0.2) Sodium Level 141mmol/L (136-145) Potassium Level 4.0mmol/L (3.5-5.1) Chloride Level 106mmol/L (98-107) Carbon Dioxide Level 27mmol/L (21-32) Anion Gap 8 (6-14) Blood Urea Nitrogen 12mg/dL (8-26) Creatinine 1.0mg/dL (0.7-1.3) Estimated GFR (Cockcroft-Gault) 78.5 Glucose Level 113mg/dL (70-99) Calcium Level 8.4mg/dL (8.5-10.1) Medications Current Medications Sodium Chloride (Iv Sodium Chloride 0.9% 1000ml Bag) 1,000 ml @ 1,000 mls/hr Q1H IV Last administered on 11/28/16 15:24; Start 11/28/16 at 14:56; Stop at 15:55; Status DC Meclizine HCl (Antivert) 25 mg 1X ONCE PO Last administered on 11/28/16 15:24 ; Start 11/28/16 at 15:00; Stop 11/28/16 at 15:02; Status DC Acetaminophen (Tylenol) 500 mg 1X ONCE PO Last administered on 11/28/16 16:33 ; Start 11/28/16 at 16:30; Stop 11/28/16 at 16:31; Status DC Diazepam (Valium) 2 mg 1X ONCE IV Last administered on 11/28/16 16:34; Start 11/28/16 at 16:30; Stop 11/28/16 at 16:31; Status DC Ondansetron HCl (Zofran) 4 mg PRN Q8HRS PRN IV NAUSEA/VOMITING Last administered on 11/28/16 19:44; Start 11/28/16 at 19:00; Stop 11/29/16 at 18:59 ; Status DC Acetaminophen (Tylenol) 650 mg PRN Q4HRS PRN PO FEVER; Start 11/28/16 at 19:00 ; Stop 11/29/16 at 18:59; Status DC Acetaminophen (Tylenol) 325 mg PRN Q6HRS PRN PO MILD PAIN / TEMP; Start at 20:30; Stop 11/29/16 at 13:49; Status DC Acetaminophen/ Hydrocodone Bitart (Lortab 5/325) 1 tab PRN Q6HRS PRN PO MODERATE TO SEVERE PAIN Last administered on 11/29/16t 16:32; Start 11/28/16 at 20:30 Hydralazine HCl (Apresoline) 10 mg PRN Q4HRS PRN IVP ELEVATED BP, SEE COMMENTS ; Start 11/28/16 at 20:30; Status Cancel Ondansetron HCl (Zofran) 4 mg PRN Q8HRS PRN IV NAUSEA/VOMITING; Start 11/28/16 at 20:30; Status Cancel Albuterol Sulfate (Ventolin Neb Soln) 2.5 mg PRN Q4HRS PRN NEB SHORTNESS OF BREATH; Start 11/28/16 at 20:30; Status Cancel Acetaminophen (Tylenol) 325 mg PRN Q6HRS PRN PO MILD PAIN / TEMP; Start at 20:45; Stop 11/29/16 at 13:49; Status DC Acetaminophen/ Hydrocodone Bitart (Lortab 5/325) 1 tab PRN Q6HRS PRN PO MODERATE TO SEVERE PAIN; Start 11/28/16 at 20:45; Stop 11/29/16 at 14:31; Status DC Hydralazine HCl (Apresoline) 10 mg PRN Q4HRS PRN IVP ELEVATED BP, SEE COMMENTS ; Start 11/28/16 at 20:45 Ondansetron HCl (Zofran) 4 mg PRN Q8HRS PRN IV NAUSEA/VOMITING; Start 11/28/16 at 20:45; Stop 11/29/16 at 10:11; Status DC Albuterol Sulfate (Ventolin Neb Soln) 2.5 mg PRN Q4HRS PRN NEB SHORTNESS OF BREATH; Start 11/28/16 at 20:45 Meclizine HCl (Antivert) 12.5 mg PRN Q6HRS PRN PO DIZZINESS Last administered on 11/29/16 03:50; Start 11/28/16 at 20:45; Stop 11/29/16 at 10:11; Status DC Meclizine HCl (Antivert) 25 mg PRN Q6HRS PRN PO DIZZINESS Last administered on 11/29/16 10:33; Start 11/29/16 at 10:15; Stop 11/29/16 at 14:01; Status DC Ondansetron HCl (Zofran) 4 mg PRN Q6HRS PRN IV NAUSEA/VOMITING 1ST CHOICE; Start 11/29/16 at 20:45 Acetaminophen (Tylenol) 650 mg PRN Q6HRS PRN PO MILD PAIN / TEMP; Start at 14:00 Meclizine HCl 25 mg 25 mg TID PO Last administered on 11/30/16 15:03; Start at 14:00 Promethazine HCl/ Sodium Chloride (Phenergan/Iv Sodium Chloride 0.9% 50ml) 50.5 ml @ 151.5 mls/ hr PRN Q6HRS PRN IV NAUSEA/VOMITING; Start 11/29/16 at 14:00 Fluticasone Propionate (Flonase) 2 spray DAILY NS ; Start 11/29/16 at 14:00 Cetirizine HCl 10 mg 10 mg DAILY PO Last administered on 11/30/16 08:46; Start 11/29/16 at 14:00 Sodium Chloride (Iv Sodium Chloride 0.9% 1000ml Bag) 1,000 ml @ 100 mls/hr Q10H IV Last administered on 11/30/16 15:07; Start 11/29/16 at 14:00 Nicotine (Nicoderm Cq 21mg) 1 patch PRN DAILY PRN TD SMOKING CESSATION; Start 11/29/16 at 14:00 Diazepam (Valium) 5 mg HS PO ; Start 11/29/16 at 21:00 Acetaminophen/ Butalbital/ Caffeine (Fioricet) 2 tab PRN Q6HRS PRN PO MIGRAINE HEADACHE; Start 11/29/16 at 16:45 Prednisone (Prednisone) 10 mg DAILY PO Last administered on 11/30/16 08:46; Start 11/29/16 at 17:00 Tizanidine HCl (Zanaflex) 4 mg Q8HRS PO Last administered on 11/30/16 15:03; Start 11/29/16 at 17:00 Pantoprazole Sodium (Protonix) 40 mg DAILYAC PO Last administered on 11/30/16 08:46; Start 11/29/16 at 17:00 Tamsulosin HCl (Flomax) 0.4 mg QHS PO Last administered on 11/29/16 21:58; Start 11/29/16 at 21:00 Ascorbic Acid (Vitamin C) 500 mg DAILY PO Last administered on 11/30/16 08:46 ; Start 11/29/16 at 17:00 Iohexol (Omnipaque 350 Mg/ml) 75 ml 1X ONCE IV Last administered on 11/30/16t 12:40; Start 11/30/16 at 08:45; Stop 11/30/16 at 08:46; Status DC Info (Do NOT chart on this entry -- for MONITORING) 1 each PRN DAILY PRN MC SEE COMMENTS; Start 11/30/16 at 08:45; Stop 12/02/16 at 08:44 Active Scripts Active Reported Tramadol Hcl 50 Mg Tablet 1 Tab PO TID PRN Lipitor (Atorvastatin Calcium) 10 Mg Tablet 1 Tab PO QHS Vitals/I & O Vital Sign - Last 24 Hours 11/29/16 11/29/16 11/29/16 11/29/16 18:16 19:35 21:00 23:53 Temp 98.1 97.9 98.1 97.9 Pulse 67 51 Resp 16 16 B/P 92/46 73/31 Pulse Ox 94 94 O2 Delivery Room Air Room Air Room Air Room Air 11/30/16 11/30/16 11/30/16 11/30/16 00:38 03:17 07:00 08:00 Temp 97.5 97.9 97.5 97.9 Pulse 51 59 Resp 16 20 B/P 103/64 102/53 109/51 Pulse Ox 95 96 O2 Delivery Room Air Room Air Room Air 11/30/16 15:00 Temp 98.0 98.0 Pulse 84 Resp 20 B/P 126/62 Pulse Ox 94 O2 Delivery Room Air Intake and Output 11/29/16 11/29/16 11/30/16 15:00 23:00 07:00 Intake Total 291 ml 300 ml Balance 291 ml 300 ml LLUVIA ESPINOZA MD Nov 30, 2016 16:42
[2016-11-30 19:00] VITALS: BP 121/52
[2016-11-30] MEDS: TAMSULOSIN 0.4 MG CAP.ER.24H. PO SCH (20:54)
[2016-11-30] MEDS: DIAZEPAM 5 MG TABLET PO SCH (20:54)
[2016-11-30 23:00] VITALS: BP 120/63
[2016-12-01] VITALS (7 sets, daily range): BP systolic 101–162; BP diastolic 42–78
[2016-12-01] MEDS: IV NORMAL SALINE 1000ML BAG 1,000 ML IV SCH ×3 (00:43→19:59)
[2016-12-01] MEDS: HYDROCODONE/APAP 5/325MG TABLET. PO PRN (03:50)
[2016-12-01 04:07] LABS: BASO # 0.1 x10^3/uL (0.0-0.2); BASO % 1 % (0-3); EOS % 2 % (0-3); HEMATOCRIT 41.3 % (39.0-53.0); HEMOGLOBIN 14.1 g/dL (13.0-17.5); LYMPH # 3.3 x10^3/uL (1.0-4.8); LYMPH % 33 % (24-48); MEAN CORPUSCULAR HEMOGLOBIN 29 pg (25-35); MEAN CORPUSCULAR HGB CONC 34 g/dL (31-37); MEAN CORPUSCULAR VOLUME 85 fL (79-100); MONO % 10 % (0-9); NEUT % 54 % (31-73); PLATELET COUNT 291 x10^3/uL (140-400); RED BLOOD COUNT 4.84 x10^6/uL (4.30-5.70); RED CELL DISTRIBUTION WIDTH 14.2 % (11.5-14.5)
[2016-12-01 04:55] LABS: CALCIUM 8.5 mg/dL (8.5-10.1); CREATININE 0.9 mg/dL (0.7-1.3); GFR 88.6; POTASSIUM 3.6 mmol/L (3.5-5.1)
[2016-12-01] MEDS: tiZANidine 4 MG TABLET. PO SCH ×3 (06:04→20:40)
[2016-12-01] MEDS: ASCORBIC ACID 500 MG TABLET PO SCH (08:59)
[2016-12-01] MEDS: CETIRIZINE HCL 10 MG TABLET PO SCH (08:59)
[2016-12-01] MEDS: PANTOPRAZOLE 40 MG TABLET. PO SCH (08:59)
[2016-12-01] MEDS: FLUTICASONE 50MCG/NASAL SPRAY 16GM BOTTLE. NS SCH (08:59)
[2016-12-01] MEDS: MECLIZINE HCL 12.5 MG TABLET. PO SCH ×3 (09:00→20:40)
[2016-12-01] MEDS: PREDNISONE 10 MG TABLET PO SCH (09:00)
--- NOTE | 2016-12-01 09:46 | PDOC ---
PROGRESS NOTES Assessment Problems Medical Problems: (1) Dizziness Status: Acute (2) Tinnitus Status: Acute Peripheral vertigo, no evidence of central cause, but tinnitus is worrisome. No sign of hearing loss, though. Neck pain, ear pain. I went over the MRI and CT findings with the radiologist, and we see no structural cause of this. There may be a little chronic sclerosis of the mastoids, not clinically relevant Incidental thyroid mass Plan Continue supportive care, Zofran, meclizine, Lortab PRN Outpatient ENT consult Thyroid mass can be followed by primary care physician Discharge today. Subjective Now his pain is more in the left ear with some tinnitus there as well Objective Vital Signs Date Time Temp Pulse Resp B/P Pulse Ox O2 Delivery O2 Flow Rate FiO2 12/01/16 07:33 97.7 56 18 102/47 94 Room Air 97.7 Intake and Output 12/01/16 07:00 Intake Total 1100 ml Output Total 800 ml Balance 300 ml Intake Oral 1100 ml Output Urine Total 800 ml # Voids 4 PHYSICAL EXAM TMs clear Alert. Oriented to time, place and person. PERRL. EOMI. CN: no focal findings. Normal hearing Muscle tone: normal. Muscle strength: 5/5 DTR: 2+ Plantar reflex: flexor Gait: improved, still a little unsteady Sensory exam: no abnormal findings. No cerebellar signs elicited. Review of Relevant I have reviewed the following items zeke (where applicable) has been applied. Labs Laboratory Tests Test 11/29/16 15:30 11/30/16 05:00 11/30/16 15:35 12/01/16 04:00 Influenza Type A Antigen Negative (NEGATIVE) Influenza Type B Antigen Negative (NEGATIVE) White Blood Count 9.9x10^3/uL (4.0-11.0) 10.0x10^3/uL (4.0-11.0) Red Blood Count 5.08x10^6/uL (4.30-5.70) 4.84x10^6/uL (4.30-5.70) Hemoglobin 14.5g/dL (13.0-17.5) 14.1g/dL (13.0-17.5) Hematocrit 42.6% (39.0-53.0) 41.3% (39.0-53.0) Mean Corpuscular Volume 84fL (79-100) 85fL (79-100) Mean Corpuscular Hemoglobin 29pg (25-35) 29pg (25-35) Mean Corpuscular Hemoglobin Concent 34g/dL (31-37) 34g/dL (31-37) Red Cell Distribution Width 14.3% (11.5-14.5) 14.2% (11.5-14.5) Platelet Count 311x10^3/uL (140-400) 291x10^3/uL (140-400) Neutrophils (%) (Auto) 68% (31-73) 54% (31-73) Lymphocytes (%) (Auto) 22% (24-48) 33% (24-48) Monocytes (%) (Auto) 8% (0-9) 10% (0-9) Eosinophils (%) (Auto) 1% (0-3) 2% (0-3) Basophils (%) (Auto) 1% (0-3) 1% (0-3) Neutrophils # (Auto) 6.8x10^3uL (1.8-7.7) 5.4x10^3uL (1.8-7.7) Lymphocytes # (Auto) 2.2x10^3/uL (1.0-4.8) 3.3x10^3/uL (1.0-4.8) Monocytes # (Auto) 0.8x10^3/uL (0.0-1.1) 1.0x10^3/uL (0.0-1.1) Eosinophils # (Auto) 0.1x10^3/uL (0.0-0.7) 0.2x10^3/uL (0.0-0.7) Basophils # (Auto) 0.1x10^3/uL (0.0-0.2) 0.1x10^3/uL (0.0-0.2) Sodium Level 141mmol/L (136-145) 142mmol/L (136-145) Potassium Level 4.0mmol/L (3.5-5.1) 3.6mmol/L (3.5-5.1) Chloride Level 106mmol/L (98-107) 106mmol/L (98-107) Carbon Dioxide Level 27mmol/L (21-32) 28mmol/L (21-32) Anion Gap 8 (6-14) 8 (6-14) Blood Urea Nitrogen 12mg/dL (8-26) 10mg/dL (8-26) Creatinine 1.0mg/dL (0.7-1.3) 0.9mg/dL (0.7-1.3) Estimated GFR (Cockcroft-Gault) 78.5 88.6 Glucose Level 113mg/dL (70-99) 107mg/dL (70-99) Calcium Level 8.4mg/dL (8.5-10.1) 8.5mg/dL (8.5-10.1) Erythrocyte Sedimentation Rate 3 (0-15) Laboratory Tests Test 11/30/16 15:35 12/01/16 04:00 Erythrocyte Sedimentation Rate 3 (0-15) White Blood Count 10.0x10^3/uL (4.0-11.0) Red Blood Count 4.84x10^6/uL (4.30-5.70) Hemoglobin 14.1g/dL (13.0-17.5) Hematocrit 41.3% (39.0-53.0) Mean Corpuscular Volume 85fL (79-100) Mean Corpuscular Hemoglobin 29pg (25-35) Mean Corpuscular Hemoglobin Concent 34g/dL (31-37) Red Cell Distribution Width 14.2% (11.5-14.5) Platelet Count 291x10^3/uL (140-400) Neutrophils (%) (Auto) 54% (31-73) Lymphocytes (%) (Auto) 33% (24-48) Monocytes (%) (Auto) 10% (0-9) Eosinophils (%) (Auto) 2% (0-3) Basophils (%) (Auto) 1% (0-3) Neutrophils # (Auto) 5.4x10^3uL (1.8-7.7) Lymphocytes # (Auto) 3.3x10^3/uL (1.0-4.8) Monocytes # (Auto) 1.0x10^3/uL (0.0-1.1) Eosinophils # (Auto) 0.2x10^3/uL (0.0-0.7) Basophils # (Auto) 0.1x10^3/uL (0.0-0.2) Sodium Level 142mmol/L (136-145) Potassium Level 3.6mmol/L (3.5-5.1) Chloride Level 106mmol/L (98-107) Carbon Dioxide Level 28mmol/L (21-32) Anion Gap 8 (6-14) Blood Urea Nitrogen 10mg/dL (8-26) Creatinine 0.9mg/dL (0.7-1.3) Estimated GFR (Cockcroft-Gault) 88.6 Glucose Level 107mg/dL (70-99) Calcium Level 8.5mg/dL (8.5-10.1) Medications Current Medications Sodium Chloride (Iv Sodium Chloride 0.9% 1000ml Bag) 1,000 ml @ 1,000 mls/hr Q1H IV Last administered on 11/28/16 15:24; Start 11/28/16 at 14:56; Stop at 15:55; Status DC Meclizine HCl (Antivert) 25 mg 1X ONCE PO Last administered on 11/28/16 15:24 ; Start 11/28/16 at 15:00; Stop 11/28/16 at 15:02; Status DC Acetaminophen (Tylenol) 500 mg 1X ONCE PO Last administered on 11/28/16 16:33 ; Start 11/28/16 at 16:30; Stop 11/28/16 at 16:31; Status DC Diazepam (Valium) 2 mg 1X ONCE IV Last administered on 11/28/16 16:34; Start 11/28/16 at 16:30; Stop 11/28/16 at 16:31; Status DC Ondansetron HCl (Zofran) 4 mg PRN Q8HRS PRN IV NAUSEA/VOMITING Last administered on 11/28/16 19:44; Start 11/28/16 at 19:00; Stop 11/29/16 at 18:59 ; Status DC Acetaminophen (Tylenol) 650 mg PRN Q4HRS PRN PO FEVER; Start 11/28/16 at 19:00 ; Stop 11/29/16 at 18:59; Status DC Acetaminophen (Tylenol) 325 mg PRN Q6HRS PRN PO MILD PAIN / TEMP; Start at 20:30; Stop 11/29/16 at 13:49; Status DC Acetaminophen/ Hydrocodone Bitart (Lortab 5/325) 1 tab PRN Q6HRS PRN PO MODERATE TO SEVERE PAIN Last administered on 12/01/16 03:50; Start 11/28/16 at 20:30 Hydralazine HCl (Apresoline) 10 mg PRN Q4HRS PRN IVP ELEVATED BP, SEE COMMENTS ; Start 11/28/16 at 20:30; Status Cancel Ondansetron HCl (Zofran) 4 mg PRN Q8HRS PRN IV NAUSEA/VOMITING; Start 11/28/16 at 20:30; Status Cancel Albuterol Sulfate (Ventolin Neb Soln) 2.5 mg PRN Q4HRS PRN NEB SHORTNESS OF BREATH; Start 11/28/16 at 20:30; Status Cancel Acetaminophen (Tylenol) 325 mg PRN Q6HRS PRN PO MILD PAIN / TEMP; Start at 20:45; Stop 11/29/16 at 13:49; Status DC Acetaminophen/ Hydrocodone Bitart (Lortab 5/325) 1 tab PRN Q6HRS PRN PO MODERATE TO SEVERE PAIN; Start 11/28/16 at 20:45; Stop 11/29/16 at 14:31; Status DC Hydralazine HCl (Apresoline) 10 mg PRN Q4HRS PRN IVP ELEVATED BP, SEE COMMENTS ; Start 11/28/16 at 20:45 Ondansetron HCl (Zofran) 4 mg PRN Q8HRS PRN IV NAUSEA/VOMITING; Start 11/28/16 at 20:45; Stop 11/29/16 at 10:11; Status DC Albuterol Sulfate (Ventolin Neb Soln) 2.5 mg PRN Q4HRS PRN NEB SHORTNESS OF BREATH; Start 11/28/16 at 20:45 Meclizine HCl (Antivert) 12.5 mg PRN Q6HRS PRN PO DIZZINESS Last administered on 11/29/16 03:50; Start 11/28/16 at 20:45; Stop 11/29/16 at 10:11; Status DC Meclizine HCl (Antivert) 25 mg PRN Q6HRS PRN PO DIZZINESS Last administered on 11/29/16 10:33; Start 11/29/16 at 10:15; Stop 11/29/16 at 14:01; Status DC Ondansetron HCl (Zofran) 4 mg PRN Q6HRS PRN IV NAUSEA/VOMITING 1ST CHOICE; Start 11/29/16 at 20:45 Acetaminophen (Tylenol) 650 mg PRN Q6HRS PRN PO MILD PAIN / TEMP; Start at 14:00 Meclizine HCl 25 mg 25 mg TID PO Last administered on 12/01/16 09:00; Start at 14:00 Promethazine HCl/ Sodium Chloride (Phenergan/Iv Sodium Chloride 0.9% 50ml) 50.5 ml @ 151.5 mls/ hr PRN Q6HRS PRN IV NAUSEA/VOMITING; Start 11/29/16 at 14:00 Fluticasone Propionate (Flonase) 2 spray DAILY NS Last administered on 08:59; Start 11/29/16 at 14:00 Cetirizine HCl 10 mg 10 mg DAILY PO Last administered on 12/01/16 08:59; Start 11/29/16 at 14:00 Sodium Chloride (Iv Sodium Chloride 0.9% 1000ml Bag) 1,000 ml @ 100 mls/hr Q10H IV Last administered on 12/01/16 00:43; Start 11/29/16 at 14:00 Nicotine (Nicoderm Cq 21mg) 1 patch PRN DAILY PRN TD SMOKING CESSATION; Start 11/29/16 at 14:00 Diazepam (Valium) 5 mg HS PO Last administered on 11/30/16 20:54; Start at 21:00 Acetaminophen/ Butalbital/ Caffeine (Fioricet) 2 tab PRN Q6HRS PRN PO MIGRAINE HEADACHE; Start 11/29/16 at 16:45 Prednisone (Prednisone) 10 mg DAILY PO Last administered on 12/01/16 09:00; Start 11/29/16 at 17:00 Tizanidine HCl (Zanaflex) 4 mg Q8HRS PO Last administered on 12/01/16 06:04; Start 11/29/16 at 17:00 Pantoprazole Sodium (Protonix) 40 mg DAILYAC PO Last administered on 12/01/16 08:59; Start 11/29/16 at 17:00 Tamsulosin HCl (Flomax) 0.4 mg QHS PO Last administered on 11/30/16 20:54; Start 11/29/16 at 21:00 Ascorbic Acid (Vitamin C) 500 mg DAILY PO Last administered on 12/01/16 08:59 ; Start 11/29/16 at 17:00 Iohexol (Omnipaque 350 Mg/ml) 75 ml 1X ONCE IV Last administered on 11/30/16 12:40; Start 11/30/16 at 08:45; Stop 11/30/16 at 08:46; Status DC Info (Do NOT chart on this entry -- for MONITORING) 1 each PRN DAILY PRN MC SEE COMMENTS; Start 11/30/16 at 08:45; Stop 12/02/16 at 08:44 Active Scripts Active Reported Tramadol Hcl 50 Mg Tablet 1 Tab PO TID PRN Lipitor (Atorvastatin Calcium) 10 Mg Tablet 1 Tab PO QHS Vitals/I & O Vital Sign - Last 24 Hours 11/30/16 11/30/16 11/30/16 11/30/16 15:00 19:00 20:00 23:00 Temp 98.0 97.9 97.5 98.0 97.9 97.5 Pulse 84 60 54 Resp 20 19 18 B/P 126/62 121/52 120/63 Pulse Ox 94 93 94 O2 Delivery Room Air Room Air Room Air Room Air 12/01/16 12/01/16 12/01/16 12/01/16 03:00 03:50 04:50 07:33 Temp 97.5 97.7 97.5 97.7 Pulse 57 56 Resp 18 15 16 18 B/P 138/78 102/47 Pulse Ox 96 94 O2 Delivery Room Air Room Air Room Air Room Air Intake and Output 11/30/16 11/30/16 12/01/16 15:00 23:00 07:00 Intake Total 500 ml 600 ml Output Total 300 ml 500 ml Balance 200 ml 100 ml Images I reviewed MRI of the cervical spine and CT Instagram, both negative. As stated above, I also went over all studies with the radiologist to see if we could discern a structural abnormalities in either ear, mastoid, or internal auditory canal that would cause pain, and none is present. THOMPSON VALDOVINOS MD Dec 01, 2016 09:46
--- NOTE | 2016-12-01 10:05 | PDOC ---
PROGRESS NOTES Subjective Subjective He continues with dizziness and ataxia. Objective Objective Vital Signs Date Time Temp Pulse Resp B/P Pulse Ox O2 Delivery O2 Flow Rate FiO2 12/01/16 07:33 97.7 56 18 102/47 94 Room Air 97.7 Intake and Output 12/01/16 07:00 Intake Total 1100 ml Output Total 800 ml Balance 300 ml Intake Oral 1100 ml Output Urine Total 800 ml # Voids 4 Physical Exam Physical Exam He is sitting up in bedside chair and does not seem to be in any acute distress and he continues to require one person help with walking and physical and occupational therapy recommends acute rehab. Assessment Assessment Problems Medical Problems: (1) Dizziness Status: Acute (2) Tinnitus Status: Acute Plan Plan of Care To await rehab screen and transfer when medically stable. Comment Review of Relevant I have reviewed the following items zeke (where applicable) has been applied. Labs Laboratory Tests Test 11/29/16 15:30 11/30/16 05:00 11/30/16 15:35 12/01/16 04:00 Influenza Type A Antigen Negative (NEGATIVE) Influenza Type B Antigen Negative (NEGATIVE) White Blood Count 9.9x10^3/uL (4.0-11.0) 10.0x10^3/uL (4.0-11.0) Red Blood Count 5.08x10^6/uL (4.30-5.70) 4.84x10^6/uL (4.30-5.70) Hemoglobin 14.5g/dL (13.0-17.5) 14.1g/dL (13.0-17.5) Hematocrit 42.6% (39.0-53.0) 41.3% (39.0-53.0) Mean Corpuscular Volume 84fL (79-100) 85fL (79-100) Mean Corpuscular Hemoglobin 29pg (25-35) 29pg (25-35) Mean Corpuscular Hemoglobin Concent 34g/dL (31-37) 34g/dL (31-37) Red Cell Distribution Width 14.3% (11.5-14.5) 14.2% (11.5-14.5) Platelet Count 311x10^3/uL (140-400) 291x10^3/uL (140-400) Neutrophils (%) (Auto) 68% (31-73) 54% (31-73) Lymphocytes (%) (Auto) 22% (24-48) 33% (24-48) Monocytes (%) (Auto) 8% (0-9) 10% (0-9) Eosinophils (%) (Auto) 1% (0-3) 2% (0-3) Basophils (%) (Auto) 1% (0-3) 1% (0-3) Neutrophils # (Auto) 6.8x10^3uL (1.8-7.7) 5.4x10^3uL (1.8-7.7) Lymphocytes # (Auto) 2.2x10^3/uL (1.0-4.8) 3.3x10^3/uL (1.0-4.8) Monocytes # (Auto) 0.8x10^3/uL (0.0-1.1) 1.0x10^3/uL (0.0-1.1) Eosinophils # (Auto) 0.1x10^3/uL (0.0-0.7) 0.2x10^3/uL (0.0-0.7) Basophils # (Auto) 0.1x10^3/uL (0.0-0.2) 0.1x10^3/uL (0.0-0.2) Sodium Level 141mmol/L (136-145) 142mmol/L (136-145) Potassium Level 4.0mmol/L (3.5-5.1) 3.6mmol/L (3.5-5.1) Chloride Level 106mmol/L (98-107) 106mmol/L (98-107) Carbon Dioxide Level 27mmol/L (21-32) 28mmol/L (21-32) Anion Gap 8 (6-14) 8 (6-14) Blood Urea Nitrogen 12mg/dL (8-26) 10mg/dL (8-26) Creatinine 1.0mg/dL (0.7-1.3) 0.9mg/dL (0.7-1.3) Estimated GFR (Cockcroft-Gault) 78.5 88.6 Glucose Level 113mg/dL (70-99) 107mg/dL (70-99) Calcium Level 8.4mg/dL (8.5-10.1) 8.5mg/dL (8.5-10.1) Erythrocyte Sedimentation Rate 3 (0-15) Laboratory Tests Test 11/30/16 15:35 12/01/16 04:00 Erythrocyte Sedimentation Rate 3 (0-15) White Blood Count 10.0x10^3/uL (4.0-11.0) Red Blood Count 4.84x10^6/uL (4.30-5.70) Hemoglobin 14.1g/dL (13.0-17.5) Hematocrit 41.3% (39.0-53.0) Mean Corpuscular Volume 85fL (79-100) Mean Corpuscular Hemoglobin 29pg (25-35) Mean Corpuscular Hemoglobin Concent 34g/dL (31-37) Red Cell Distribution Width 14.2% (11.5-14.5) Platelet Count 291x10^3/uL (140-400) Neutrophils (%) (Auto) 54% (31-73) Lymphocytes (%) (Auto) 33% (24-48) Monocytes (%) (Auto) 10% (0-9) Eosinophils (%) (Auto) 2% (0-3) Basophils (%) (Auto) 1% (0-3) Neutrophils # (Auto) 5.4x10^3uL (1.8-7.7) Lymphocytes # (Auto) 3.3x10^3/uL (1.0-4.8) Monocytes # (Auto) 1.0x10^3/uL (0.0-1.1) Eosinophils # (Auto) 0.2x10^3/uL (0.0-0.7) Basophils # (Auto) 0.1x10^3/uL (0.0-0.2) Sodium Level 142mmol/L (136-145) Potassium Level 3.6mmol/L (3.5-5.1) Chloride Level 106mmol/L (98-107) Carbon Dioxide Level 28mmol/L (21-32) Anion Gap 8 (6-14) Blood Urea Nitrogen 10mg/dL (8-26) Creatinine 0.9mg/dL (0.7-1.3) Estimated GFR (Cockcroft-Gault) 88.6 Glucose Level 107mg/dL (70-99) Calcium Level 8.5mg/dL (8.5-10.1) Medications Current Medications Sodium Chloride (Iv Sodium Chloride 0.9% 1000ml Bag) 1,000 ml @ 1,000 mls/hr Q1H IV Last administered on 11/28/16 15:24; Start 11/28/16 at 14:56; Stop at 15:55; Status DC Meclizine HCl (Antivert) 25 mg 1X ONCE PO Last administered on 11/28/16 15:24 ; Start 11/28/16 at 15:00; Stop 11/28/16 at 15:02; Status DC Acetaminophen (Tylenol) 500 mg 1X ONCE PO Last administered on 11/28/16 16:33 ; Start 11/28/16 at 16:30; Stop 11/28/16 at 16:31; Status DC Diazepam (Valium) 2 mg 1X ONCE IV Last administered on 11/28/16 16:34; Start 11/28/16 at 16:30; Stop 11/28/16 at 16:31; Status DC Ondansetron HCl (Zofran) 4 mg PRN Q8HRS PRN IV NAUSEA/VOMITING Last administered on 11/28/16 19:44; Start 11/28/16 at 19:00; Stop 11/29/16 at 18:59 ; Status DC Acetaminophen (Tylenol) 650 mg PRN Q4HRS PRN PO FEVER; Start 11/28/16 at 19:00 ; Stop 11/29/16 at 18:59; Status DC Acetaminophen (Tylenol) 325 mg PRN Q6HRS PRN PO MILD PAIN / TEMP; Start at 20:30; Stop 11/29/16 at 13:49; Status DC Acetaminophen/ Hydrocodone Bitart (Lortab 5/325) 1 tab PRN Q6HRS PRN PO MODERATE TO SEVERE PAIN Last administered on 12/01/16 03:50; Start 11/28/16 at 20:30 Hydralazine HCl (Apresoline) 10 mg PRN Q4HRS PRN IVP ELEVATED BP, SEE COMMENTS ; Start 11/28/16 at 20:30; Status Cancel Ondansetron HCl (Zofran) 4 mg PRN Q8HRS PRN IV NAUSEA/VOMITING; Start 11/28/16 at 20:30; Status Cancel Albuterol Sulfate (Ventolin Neb Soln) 2.5 mg PRN Q4HRS PRN NEB SHORTNESS OF BREATH; Start 11/28/16 at 20:30; Status Cancel Acetaminophen (Tylenol) 325 mg PRN Q6HRS PRN PO MILD PAIN / TEMP; Start at 20:45; Stop 11/29/16 at 13:49; Status DC Acetaminophen/ Hydrocodone Bitart (Lortab 5/325) 1 tab PRN Q6HRS PRN PO MODERATE TO SEVERE PAIN; Start 11/28/16 at 20:45; Stop 11/29/16 at 14:31; Status DC Hydralazine HCl (Apresoline) 10 mg PRN Q4HRS PRN IVP ELEVATED BP, SEE COMMENTS ; Start 11/28/16 at 20:45 Ondansetron HCl (Zofran) 4 mg PRN Q8HRS PRN IV NAUSEA/VOMITING; Start 11/28/16 at 20:45; Stop 11/29/16 at 10:11; Status DC Albuterol Sulfate (Ventolin Neb Soln) 2.5 mg PRN Q4HRS PRN NEB SHORTNESS OF BREATH; Start 11/28/16 at 20:45 Meclizine HCl (Antivert) 12.5 mg PRN Q6HRS PRN PO DIZZINESS Last administered on 11/29/16 03:50; Start 11/28/16 at 20:45; Stop 11/29/16 at 10:11; Status DC Meclizine HCl (Antivert) 25 mg PRN Q6HRS PRN PO DIZZINESS Last administered on 11/29/16 10:33; Start 11/29/16 at 10:15; Stop 11/29/16 at 14:01; Status DC Ondansetron HCl (Zofran) 4 mg PRN Q6HRS PRN IV NAUSEA/VOMITING 1ST CHOICE; Start 11/29/16 at 20:45 Acetaminophen (Tylenol) 650 mg PRN Q6HRS PRN PO MILD PAIN / TEMP; Start at 14:00 Meclizine HCl 25 mg 25 mg TID PO Last administered on 12/01/16 09:00; Start at 14:00 Promethazine HCl/ Sodium Chloride (Phenergan/Iv Sodium Chloride 0.9% 50ml) 50.5 ml @ 151.5 mls/ hr PRN Q6HRS PRN IV NAUSEA/VOMITING; Start 11/29/16 at 14:00 Fluticasone Propionate (Flonase) 2 spray DAILY NS Last administered on 08:59; Start 11/29/16 at 14:00 Cetirizine HCl 10 mg 10 mg DAILY PO Last administered on 12/01/16 08:59; Start 11/29/16 at 14:00 Sodium Chloride (Iv Sodium Chloride 0.9% 1000ml Bag) 1,000 ml @ 100 mls/hr Q10H IV Last administered on 12/01/16 00:43; Start 11/29/16 at 14:00 Nicotine (Nicoderm Cq 21mg) 1 patch PRN DAILY PRN TD SMOKING CESSATION; Start 11/29/16 at 14:00 Diazepam (Valium) 5 mg HS PO Last administered on 11/30/16 20:54; Start at 21:00 Acetaminophen/ Butalbital/ Caffeine (Fioricet) 2 tab PRN Q6HRS PRN PO MIGRAINE HEADACHE; Start 11/29/16 at 16:45 Prednisone (Prednisone) 10 mg DAILY PO Last administered on 12/01/16 09:00; Start 11/29/16 at 17:00 Tizanidine HCl (Zanaflex) 4 mg Q8HRS PO Last administered on 12/01/16 06:04; Start 11/29/16 at 17:00 Pantoprazole Sodium (Protonix) 40 mg DAILYAC PO Last administered on 12/01/16 08:59; Start 11/29/16 at 17:00 Tamsulosin HCl (Flomax) 0.4 mg QHS PO Last administered on 11/30/16 20:54; Start 11/29/16 at 21:00 Ascorbic Acid (Vitamin C) 500 mg DAILY PO Last administered on 12/01/16 08:59 ; Start 11/29/16 at 17:00 Iohexol (Omnipaque 350 Mg/ml) 75 ml 1X ONCE IV Last administered on 11/30/16 12:40; Start 11/30/16 at 08:45; Stop 11/30/16 at 08:46; Status DC Info (Do NOT chart on this entry -- for MONITORING) 1 each PRN DAILY PRN MC SEE COMMENTS; Start 11/30/16 at 08:45; Stop 12/02/16 at 08:44 Active Scripts Active Reported Tramadol Hcl 50 Mg Tablet 1 Tab PO TID PRN Lipitor (Atorvastatin Calcium) 10 Mg Tablet 1 Tab PO QHS Vitals/I & O Vital Sign - Last 24 Hours 11/30/16 11/30/16 11/30/16 11/30/16 15:00 19:00 20:00 23:00 Temp 98.0 97.9 97.5 98.0 97.9 97.5 Pulse 84 60 54 Resp 18 B/P 126/62 121/52 120/63 Pulse Ox 94 93 94 O2 Delivery Room Air Room Air Room Air Room Air 12/01/16 12/01/16 12/01/16 12/01/16 03:00 03:50 04:50 07:33 Temp 97.5 97.7 97.5 97.7 Pulse 57 56 Resp 18 18 B/P 138/78 102/47 Pulse Ox 96 94 O2 Delivery Room Air Room Air Room Air Room Air Intake and Output 11/30/16 11/30/16 12/01/16 15:00 23:00 07:00 Intake Total 500 ml 600 ml Output Total 300 ml 500 ml Balance 200 ml 100 ml LLUVIA ESPINOZA MD Dec 01, 2016 10:05
[2016-12-01] MEDS ORDERED: BISACODYL 5 MG TABLET.DR. PO PRN (10:15)
[2016-12-01] MEDS: SENNOSIDES/DOCUSATE 8.6/50MG TABLET. PO SCH ×2 (11:10→20:40)
[2016-12-01] MEDS: PROPARACAINE 0.5% OPHTH SOLUTION 15ML BOTTLE. OS SCH ×2 (11:10→20:40)
--- NOTE | 2016-12-01 13:04 | PDOC ---
PROGRESS NOTES Chief Complaint Chief Complaint 1. Dizziness, vertigo and tinnitus: no central lesions on CT/MRI. appreciate Dr Lopez's input. treat symptomatically 2. HLD: on statin 3. Tobacco abuse: nicotine patch while here 4. Obesity: lifestyle changes recommended 5. BPH: on flomax 6. Dispo: awaiting rehab bed Vitals Vitals Vital Signs Date Time Temp Pulse Resp B/P Pulse Ox O2 Delivery O2 Flow Rate FiO2 12/01/16 11:25 97.7 59 18 107/42 97 Room Air 97.7 Physical Exam General: Alert, Oriented X3, Cooperative, No acute distress Heart: Regular rate Lungs: Clear Abdomen: Normal bowel sounds, Soft Extremities: No clubbing, No cyanosis Skin: No rashes, No breakdown Labs LABS Laboratory Tests Test 11/30/16 15:35 12/01/16 04:00 Erythrocyte Sedimentation Rate 3 (0-15) White Blood Count 10.0x10^3/uL (4.0-11.0) Red Blood Count 4.84x10^6/uL (4.30-5.70) Hemoglobin 14.1g/dL (13.0-17.5) Hematocrit 41.3% (39.0-53.0) Mean Corpuscular Volume 85fL (79-100) Mean Corpuscular Hemoglobin 29pg (25-35) Mean Corpuscular Hemoglobin Concent 34g/dL (31-37) Red Cell Distribution Width 14.2% (11.5-14.5) Platelet Count 291x10^3/uL (140-400) Neutrophils (%) (Auto) 54% (31-73) Lymphocytes (%) (Auto) 33% (24-48) Monocytes (%) (Auto) 10% (0-9) Eosinophils (%) (Auto) 2% (0-3) Basophils (%) (Auto) 1% (0-3) Neutrophils # (Auto) 5.4x10^3uL (1.8-7.7) Lymphocytes # (Auto) 3.3x10^3/uL (1.0-4.8) Monocytes # (Auto) 1.0x10^3/uL (0.0-1.1) Eosinophils # (Auto) 0.2x10^3/uL (0.0-0.7) Basophils # (Auto) 0.1x10^3/uL (0.0-0.2) Sodium Level 142mmol/L (136-145) Potassium Level 3.6mmol/L (3.5-5.1) Chloride Level 106mmol/L (98-107) Carbon Dioxide Level 28mmol/L (21-32) Anion Gap 8 (6-14) Blood Urea Nitrogen 10mg/dL (8-26) Creatinine 0.9mg/dL (0.7-1.3) Estimated GFR (Cockcroft-Gault) 88.6 Glucose Level 107mg/dL (70-99) Calcium Level 8.5mg/dL (8.5-10.1) Review of Systems Review of Systems lying on his side in bed, not moving head Comment Review of Relevant QUIQUE RAY MD Dec 01, 2016 13:04
[2016-12-01] MEDS: TAMSULOSIN 0.4 MG CAP.ER.24H. PO SCH (20:40)
[2016-12-01] MEDS: DIAZEPAM 5 MG TABLET PO SCH (20:40)
[2016-12-02 03:12] VITALS: BP 132/64
[2016-12-02 05:13] LABS: BASO # 0.1 x10^3/uL (0.0-0.2); BASO % 1 % (0-3); EOS % 2 % (0-3); LYMPH # 3.3 x10^3/uL (1.0-4.8); LYMPH % 32 % (24-48); MEAN CORPUSCULAR HEMOGLOBIN 29 pg (25-35); MEAN CORPUSCULAR HGB CONC 33 g/dL (31-37); MEAN CORPUSCULAR VOLUME 86 fL (79-100); MONO % 12 % (0-9); NEUT % 53 % (31-73); PLATELET COUNT 283 x10^3/uL (140-400); RED BLOOD COUNT 4.88 x10^6/uL (4.30-5.70); RED CELL DISTRIBUTION WIDTH 14.4 % (11.5-14.5); WHITE BLOOD COUNT 10.3 x10^3/uL (4.0-11.0)
[2016-12-02 05:19] LABS: CALCIUM 8.5 mg/dL (8.5-10.1); GFR 78.5; POTASSIUM 3.8 mmol/L (3.5-5.1)
[2016-12-02] MEDS: tiZANidine 4 MG TABLET. PO SCH ×3 (05:58→21:14)
[2016-12-02] MEDS: IV NORMAL SALINE 1000ML BAG 1,000 ML IV SCH ×3 (06:00→22:00)
[2016-12-02 07:33] VITALS: BP 129/70
[2016-12-02] MEDS: CETIRIZINE HCL 10 MG TABLET PO SCH (08:08)
[2016-12-02] MEDS: PANTOPRAZOLE 40 MG TABLET. PO SCH (08:08)
[2016-12-02] MEDS: ASCORBIC ACID 500 MG TABLET PO SCH (08:08)
[2016-12-02] MEDS: PREDNISONE 10 MG TABLET PO SCH (08:08)
[2016-12-02] MEDS: SENNOSIDES/DOCUSATE 8.6/50MG TABLET. PO SCH ×2 (08:09→21:14)
[2016-12-02] MEDS: FLUTICASONE 50MCG/NASAL SPRAY 16GM BOTTLE. NS SCH (08:09)
[2016-12-02] MEDS: MECLIZINE HCL 12.5 MG TABLET. PO SCH ×3 (09:12→21:13)
[2016-12-02] MEDS: PROPARACAINE 0.5% OPHTH SOLUTION 15ML BOTTLE. OS SCH ×2 (10:08→21:00)
--- NOTE | 2016-12-02 11:16 | PDOC ---
PROGRESS NOTES Subjective Subjective He continues with dizziness. Objective Objective Vital Signs Date Time Temp Pulse Resp B/P Pulse Ox O2 Delivery O2 Flow Rate FiO2 12/02/16 08:15 Room Air 12/02/16 07:33 97.7 59 20 129/70 95 97.7 Intake and Output 12/02/16 07:00 Intake Total 690 ml Output Total 1350 ml Balance -660 ml Intake Oral 690 ml Output Urine Total 1350 ml # Voids 8 Physical Exam Physical Exam He is independent with bed mobility but he needs supervision while up walking with roller walker and he gets tired easily and holds on to walker with his hands tightly as he is afraid of falling and that is causing some pain in his hands.He continues with significant balance problems and not safe to return home. Assessment Assessment Problems Medical Problems: (1) Dizziness Status: Acute (2) Tinnitus Status: Acute Plan Plan of Care To rehab unit when arrangements are completed and to continue present physical and occupational therapy follow up. Comment Review of Relevant I have reviewed the following items zeke (where applicable) has been applied. Labs Laboratory Tests Test 11/30/16 15:35 12/01/16 04:00 12/02/16 04:50 Erythrocyte Sedimentation Rate 3 (0-15) White Blood Count 10.0x10^3/uL (4.0-11.0) 10.3x10^3/uL (4.0-11.0) Red Blood Count 4.84x10^6/uL (4.30-5.70) 4.88x10^6/uL (4.30-5.70) Hemoglobin 14.1g/dL (13.0-17.5) 14.0g/dL (13.0-17.5) Hematocrit 41.3% (39.0-53.0) 42.0% (39.0-53.0) Mean Corpuscular Volume 85fL (79-100) 86fL (79-100) Mean Corpuscular Hemoglobin 29pg (25-35) 29pg (25-35) Mean Corpuscular Hemoglobin Concent 34g/dL (31-37) 33g/dL (31-37) Red Cell Distribution Width 14.2% (11.5-14.5) 14.4% (11.5-14.5) Platelet Count 291x10^3/uL (140-400) 283x10^3/uL (140-400) Neutrophils (%) (Auto) 54% (31-73) 53% (31-73) Lymphocytes (%) (Auto) 33% (24-48) 32% (24-48) Monocytes (%) (Auto) 10% (0-9) 12% (0-9) Eosinophils (%) (Auto) 2% (0-3) 2% (0-3) Basophils (%) (Auto) 1% (0-3) 1% (0-3) Neutrophils # (Auto) 5.4x10^3uL (1.8-7.7) 5.5x10^3uL (1.8-7.7) Lymphocytes # (Auto) 3.3x10^3/uL (1.0-4.8) 3.3x10^3/uL (1.0-4.8) Monocytes # (Auto) 1.0x10^3/uL (0.0-1.1) 1.3x10^3/uL (0.0-1.1) Eosinophils # (Auto) 0.2x10^3/uL (0.0-0.7) 0.2x10^3/uL (0.0-0.7) Basophils # (Auto) 0.1x10^3/uL (0.0-0.2) 0.1x10^3/uL (0.0-0.2) Sodium Level 142mmol/L (136-145) 143mmol/L (136-145) Potassium Level 3.6mmol/L (3.5-5.1) 3.8mmol/L (3.5-5.1) Chloride Level 106mmol/L (98-107) 107mmol/L (98-107) Carbon Dioxide Level 28mmol/L (21-32) 28mmol/L (21-32) Anion Gap 8 (6-14) 8 (6-14) Blood Urea Nitrogen 10mg/dL (8-26) 7mg/dL (8-26) Creatinine 0.9mg/dL (0.7-1.3) 1.0mg/dL (0.7-1.3) Estimated GFR (Cockcroft-Gault) 88.6 78.5 Glucose Level 107mg/dL (70-99) 94mg/dL (70-99) Calcium Level 8.5mg/dL (8.5-10.1) 8.5mg/dL (8.5-10.1) Laboratory Tests Test 12/02/16 04:50 White Blood Count 10.3x10^3/uL (4.0-11.0) Red Blood Count 4.88x10^6/uL (4.30-5.70) Hemoglobin 14.0g/dL (13.0-17.5) Hematocrit 42.0% (39.0-53.0) Mean Corpuscular Volume 86fL (79-100) Mean Corpuscular Hemoglobin 29pg (25-35) Mean Corpuscular Hemoglobin Concent 33g/dL (31-37) Red Cell Distribution Width 14.4% (11.5-14.5) Platelet Count 283x10^3/uL (140-400) Neutrophils (%) (Auto) 53% (31-73) Lymphocytes (%) (Auto) 32% (24-48) Monocytes (%) (Auto) 12% (0-9) Eosinophils (%) (Auto) 2% (0-3) Basophils (%) (Auto) 1% (0-3) Neutrophils # (Auto) 5.5x10^3uL (1.8-7.7) Lymphocytes # (Auto) 3.3x10^3/uL (1.0-4.8) Monocytes # (Auto) 1.3x10^3/uL (0.0-1.1) Eosinophils # (Auto) 0.2x10^3/uL (0.0-0.7) Basophils # (Auto) 0.1x10^3/uL (0.0-0.2) Sodium Level 143mmol/L (136-145) Potassium Level 3.8mmol/L (3.5-5.1) Chloride Level 107mmol/L (98-107) Carbon Dioxide Level 28mmol/L (21-32) Anion Gap 8 (6-14) Blood Urea Nitrogen 7mg/dL (8-26) Creatinine 1.0mg/dL (0.7-1.3) Estimated GFR (Cockcroft-Gault) 78.5 Glucose Level 94mg/dL (70-99) Calcium Level 8.5mg/dL (8.5-10.1) Medications Current Medications Sodium Chloride (Iv Sodium Chloride 0.9% 1000ml Bag) 1,000 ml @ 1,000 mls/hr Q1H IV Last administered on 11/28/16 15:24; Start 11/28/16 at 14:56; Stop at 15:55; Status DC Meclizine HCl (Antivert) 25 mg 1X ONCE PO Last administered on 11/28/16 15:24 ; Start 11/28/16 at 15:00; Stop 11/28/16 at 15:02; Status DC Acetaminophen (Tylenol) 500 mg 1X ONCE PO Last administered on 11/28/16 16:33 ; Start 11/28/16 at 16:30; Stop 11/28/16 at 16:31; Status DC Diazepam (Valium) 2 mg 1X ONCE IV Last administered on 11/28/16 16:34; Start 11/28/16 at 16:30; Stop 11/28/16 at 16:31; Status DC Ondansetron HCl (Zofran) 4 mg PRN Q8HRS PRN IV NAUSEA/VOMITING Last administered on 11/28/16 19:44; Start 11/28/16 at 19:00; Stop 11/29/16 at 18:59 ; Status DC Acetaminophen (Tylenol) 650 mg PRN Q4HRS PRN PO FEVER; Start 11/28/16 at 19:00 ; Stop 11/29/16 at 18:59; Status DC Acetaminophen (Tylenol) 325 mg PRN Q6HRS PRN PO MILD PAIN / TEMP; Start at 20:30; Stop 11/29/16 at 13:49; Status DC Acetaminophen/ Hydrocodone Bitart (Lortab 5/325) 1 tab PRN Q6HRS PRN PO MODERATE TO SEVERE PAIN Last administered on 12/01/16 03:50; Start 11/28/16 at 20:30 Hydralazine HCl (Apresoline) 10 mg PRN Q4HRS PRN IVP ELEVATED BP, SEE COMMENTS ; Start 11/28/16 at 20:30; Status Cancel Ondansetron HCl (Zofran) 4 mg PRN Q8HRS PRN IV NAUSEA/VOMITING; Start 11/28/16 at 20:30; Status Cancel Albuterol Sulfate (Ventolin Neb Soln) 2.5 mg PRN Q4HRS PRN NEB SHORTNESS OF BREATH; Start 11/28/16 at 20:30; Status Cancel Acetaminophen (Tylenol) 325 mg PRN Q6HRS PRN PO MILD PAIN / TEMP; Start at 20:45; Stop 11/29/16 at 13:49; Status DC Acetaminophen/ Hydrocodone Bitart (Lortab 5/325) 1 tab PRN Q6HRS PRN PO MODERATE TO SEVERE PAIN; Start 11/28/16 at 20:45; Stop 11/29/16 at 14:31; Status DC Hydralazine HCl (Apresoline) 10 mg PRN Q4HRS PRN IVP ELEVATED BP, SEE COMMENTS ; Start 11/28/16 at 20:45 Ondansetron HCl (Zofran) 4 mg PRN Q8HRS PRN IV NAUSEA/VOMITING; Start 11/28/16 at 20:45; Stop 11/29/16 at 10:11; Status DC Albuterol Sulfate (Ventolin Neb Soln) 2.5 mg PRN Q4HRS PRN NEB SHORTNESS OF BREATH; Start 11/28/16 at 20:45 Meclizine HCl (Antivert) 12.5 mg PRN Q6HRS PRN PO DIZZINESS Last administered on 11/29/16 03:50; Start 11/28/16 at 20:45; Stop 11/29/16 at 10:11; Status DC Meclizine HCl (Antivert) 25 mg PRN Q6HRS PRN PO DIZZINESS Last administered on 11/29/16 10:33; Start 11/29/16 at 10:15; Stop 11/29/16 at 14:01; Status DC Ondansetron HCl (Zofran) 4 mg PRN Q6HRS PRN IV NAUSEA/VOMITING 1ST CHOICE; Start 11/29/16 at 20:45 Acetaminophen (Tylenol) 650 mg PRN Q6HRS PRN PO MILD PAIN / TEMP; Start at 14:00 Meclizine HCl 25 mg 25 mg TID PO Last administered on 12/02/16 09:12; Start at 14:00 Promethazine HCl/ Sodium Chloride (Phenergan/Iv Sodium Chloride 0.9% 50ml) 50.5 ml @ 151.5 mls/ hr PRN Q6HRS PRN IV NAUSEA/VOMITING; Start 11/29/16 at 14:00 Fluticasone Propionate (Flonase) 2 spray DAILY NS Last administered on 08:09; Start 11/29/16 at 14:00 Cetirizine HCl 10 mg 10 mg DAILY PO Last administered on 12/02/16 08:08; Start 11/29/16 at 14:00 Sodium Chloride (Iv Sodium Chloride 0.9% 1000ml Bag) 1,000 ml @ 100 mls/hr Q10H IV Last administered on 12/02/16 06:00; Start 11/29/16 at 14:00 Nicotine (Nicoderm Cq 21mg) 1 patch PRN DAILY PRN TD SMOKING CESSATION; Start 11/29/16 at 14:00 Diazepam (Valium) 5 mg HS PO Last administered on 12/01/16 20:40; Start at 21:00 Acetaminophen/ Butalbital/ Caffeine (Fioricet) 2 tab PRN Q6HRS PRN PO MIGRAINE HEADACHE; Start 11/29/16 at 16:45 Prednisone (Prednisone) 10 mg DAILY PO Last administered on 12/02/16 08:08; Start 11/29/16 at 17:00 Tizanidine HCl (Zanaflex) 4 mg Q8HRS PO Last administered on 12/02/16 05:58; Start 11/29/16 at 17:00 Pantoprazole Sodium (Protonix) 40 mg DAILYAC PO Last administered on 12/02/16 08:08; Start 11/29/16 at 17:00 Tamsulosin HCl (Flomax) 0.4 mg QHS PO Last administered on 12/01/16 20:40; Start 11/29/16 at 21:00 Ascorbic Acid (Vitamin C) 500 mg DAILY PO Last administered on 12/02/16 08:08 ; Start 11/29/16 at 17:00 Iohexol (Omnipaque 350 Mg/ml) 75 ml 1X ONCE IV Last administered on 11/30/16 12:40; Start 11/30/16 at 08:45; Stop 11/30/16 at 08:46; Status DC Info (Do NOT chart on this entry -- for MONITORING) 1 each PRN DAILY PRN MC SEE COMMENTS; Start 11/30/16 at 08:45; Stop 12/02/16 at 08:44; Status DC Senna/Docusate Sodium (Senna Plus) 1 tab BID PO Last administered on 12/02/16 08:09; Start 12/01/16 at 10:30 Bisacodyl (Dulcolax Tab) 10 mg PRN DAILY PRN PO CONSTIPATION; Start 12/01/16 at 10:15 Proparacaine HCl (Alcaine) 1 drop BID OS Last administered on 12/02/16 10:08; Start 12/01/16 at 11:00 Active Scripts Active Reported Tramadol Hcl 50 Mg Tablet 1 Tab PO TID PRN Lipitor (Atorvastatin Calcium) 10 Mg Tablet 1 Tab PO QHS Vitals/I & O Vital Sign - Last 24 Hours 12/01/16 12/01/16 12/01/16 12/01/16 11:25 15:34 19:40 20:00 Temp 97.7 97.3 97.9 97.7 97.3 97.9 Pulse 59 69 58 Resp 18 18 16 B/P 107/42 103/48 101/52 Pulse Ox 97 93 95 O2 Delivery Room Air Room Air Room Air Room Air 12/01/16 12/02/16 12/02/16 12/02/16 23:35 03:12 07:33 08:15 Temp 97.5 96.3 97.7 97.5 96.3 97.7 Pulse 51 53 59 Resp 16 20 20 B/P 102/55 132/64 129/70 Pulse Ox 94 98 95 O2 Delivery Room Air Room Air Room Air Room Air Intake and Output 12/01/16 12/01/16 12/02/16 15:00 23:00 07:00 Intake Total 450 ml 240 ml Output Total 800 ml 550 ml Balance -350 ml -310 ml LLUVIA ESPINOZA MD Dec 02, 2016 11:16
[2016-12-02 11:57] VITALS: BP 119/63
[2016-12-02 14:53] VITALS: BP 143/71
--- NOTE | 2016-12-02 16:33 | PDOC ---
PROGRESS NOTES Assessment Problems Medical Problems: (1) Dizziness Status: Acute (2) Tinnitus Status: Acute Problems: Plan Peripheral vertigo, no evidence of central cause, + tinnitus Patient feeling better some hearing problems per . the MRI and CT no structural cause of this. Plan Continue supportive care, Zofran, meclizine Outpatient ENT consult ? menieres dz Thyroid mass can be followed by primary care physician Can be discharged from neurology prospective Please call back as needed. follow up neurology clinic. . Subjective feeling better Objective Vital Signs Date Time Temp Pulse Resp B/P Pulse Ox O2 Delivery O2 Flow Rate FiO2 12/02/16 14:53 98.2 63 20 143/71 95 Room Air 98.2 Intake and Output 12/02/16 07:00 Intake Total 690 ml Output Total 1350 ml Balance -660 ml Intake Oral 690 ml Output Urine Total 1350 ml # Voids 8 PHYSICAL EXAM Ms clear Alert. Oriented to time, place and person. PERRL. EOMI. CN: no focal findings. Normal hearing Muscle tone: normal. Muscle strength: 5/5 DTR: 2+ Plantar reflex: flexor Gait: improved, still a little unsteady Sensory exam: no abnormal findings. No cerebellar signs elicited. Review of Relevant I have reviewed the following items zeke (where applicable) has been applied. Labs Laboratory Tests Test 12/01/16 04:00 12/02/16 04:50 White Blood Count 10.0x10^3/uL (4.0-11.0) 10.3x10^3/uL (4.0-11.0) Red Blood Count 4.84x10^6/uL (4.30-5.70) 4.88x10^6/uL (4.30-5.70) Hemoglobin 14.1g/dL (13.0-17.5) 14.0g/dL (13.0-17.5) Hematocrit 41.3% (39.0-53.0) 42.0% (39.0-53.0) Mean Corpuscular Volume 85fL (79-100) 86fL (79-100) Mean Corpuscular Hemoglobin 29pg (25-35) 29pg (25-35) Mean Corpuscular Hemoglobin Concent 34g/dL (31-37) 33g/dL (31-37) Red Cell Distribution Width 14.2% (11.5-14.5) 14.4% (11.5-14.5) Platelet Count 291x10^3/uL (140-400) 283x10^3/uL (140-400) Neutrophils (%) (Auto) 54% (31-73) 53% (31-73) Lymphocytes (%) (Auto) 33% (24-48) 32% (24-48) Monocytes (%) (Auto) 10% (0-9) 12% (0-9) Eosinophils (%) (Auto) 2% (0-3) 2% (0-3) Basophils (%) (Auto) 1% (0-3) 1% (0-3) Neutrophils # (Auto) 5.4x10^3uL (1.8-7.7) 5.5x10^3uL (1.8-7.7) Lymphocytes # (Auto) 3.3x10^3/uL (1.0-4.8) 3.3x10^3/uL (1.0-4.8) Monocytes # (Auto) 1.0x10^3/uL (0.0-1.1) 1.3x10^3/uL (0.0-1.1) Eosinophils # (Auto) 0.2x10^3/uL (0.0-0.7) 0.2x10^3/uL (0.0-0.7) Basophils # (Auto) 0.1x10^3/uL (0.0-0.2) 0.1x10^3/uL (0.0-0.2) Sodium Level 142mmol/L (136-145) 143mmol/L (136-145) Potassium Level 3.6mmol/L (3.5-5.1) 3.8mmol/L (3.5-5.1) Chloride Level 106mmol/L (98-107) 107mmol/L (98-107) Carbon Dioxide Level 28mmol/L (21-32) 28mmol/L (21-32) Anion Gap 8 (6-14) 8 (6-14) Blood Urea Nitrogen 10mg/dL (8-26) 7mg/dL (8-26) Creatinine 0.9mg/dL (0.7-1.3) 1.0mg/dL (0.7-1.3) Estimated GFR (Cockcroft-Gault) 88.6 78.5 Glucose Level 107mg/dL (70-99) 94mg/dL (70-99) Calcium Level 8.5mg/dL (8.5-10.1) 8.5mg/dL (8.5-10.1) Laboratory Tests Test 12/02/16 04:50 White Blood Count 10.3x10^3/uL (4.0-11.0) Red Blood Count 4.88x10^6/uL (4.30-5.70) Hemoglobin 14.0g/dL (13.0-17.5) Hematocrit 42.0% (39.0-53.0) Mean Corpuscular Volume 86fL (79-100) Mean Corpuscular Hemoglobin 29pg (25-35) Mean Corpuscular Hemoglobin Concent 33g/dL (31-37) Red Cell Distribution Width 14.4% (11.5-14.5) Platelet Count 283x10^3/uL (140-400) Neutrophils (%) (Auto) 53% (31-73) Lymphocytes (%) (Auto) 32% (24-48) Monocytes (%) (Auto) 12% (0-9) Eosinophils (%) (Auto) 2% (0-3) Basophils (%) (Auto) 1% (0-3) Neutrophils # (Auto) 5.5x10^3uL (1.8-7.7) Lymphocytes # (Auto) 3.3x10^3/uL (1.0-4.8) Monocytes # (Auto) 1.3x10^3/uL (0.0-1.1) Eosinophils # (Auto) 0.2x10^3/uL (0.0-0.7) Basophils # (Auto) 0.1x10^3/uL (0.0-0.2) Sodium Level 143mmol/L (136-145) Potassium Level 3.8mmol/L (3.5-5.1) Chloride Level 107mmol/L (98-107) Carbon Dioxide Level 28mmol/L (21-32) Anion Gap 8 (6-14) Blood Urea Nitrogen 7mg/dL (8-26) Creatinine 1.0mg/dL (0.7-1.3) Estimated GFR (Cockcroft-Gault) 78.5 Glucose Level 94mg/dL (70-99) Calcium Level 8.5mg/dL (8.5-10.1) Medications Current Medications Sodium Chloride (Iv Sodium Chloride 0.9% 1000ml Bag) 1,000 ml @ 1,000 mls/hr Q1H IV Last administered on 11/28/16 15:24; Start 11/28/16 at 14:56; Stop at 15:55; Status DC Meclizine HCl (Antivert) 25 mg 1X ONCE PO Last administered on 11/28/16 15:24 ; Start 11/28/16 at 15:00; Stop 11/28/16 at 15:02; Status DC Acetaminophen (Tylenol) 500 mg 1X ONCE PO Last administered on 11/28/16 16:33 ; Start 11/28/16 at 16:30; Stop 11/28/16 at 16:31; Status DC Diazepam (Valium) 2 mg 1X ONCE IV Last administered on 11/28/16 16:34; Start 11/28/16 at 16:30; Stop 11/28/16 at 16:31; Status DC Ondansetron HCl (Zofran) 4 mg PRN Q8HRS PRN IV NAUSEA/VOMITING Last administered on 11/28/16 19:44; Start 11/28/16 at 19:00; Stop 11/29/16 at 18:59 ; Status DC Acetaminophen (Tylenol) 650 mg PRN Q4HRS PRN PO FEVER; Start 11/28/16 at 19:00 ; Stop 11/29/16 at 18:59; Status DC Acetaminophen (Tylenol) 325 mg PRN Q6HRS PRN PO MILD PAIN / TEMP; Start at 20:30; Stop 11/29/16 at 13:49; Status DC Acetaminophen/ Hydrocodone Bitart (Lortab 5/325) 1 tab PRN Q6HRS PRN PO MODERATE TO SEVERE PAIN Last administered on 12/01/16 03:50; Start 11/28/16 at 20:30 Hydralazine HCl (Apresoline) 10 mg PRN Q4HRS PRN IVP ELEVATED BP, SEE COMMENTS ; Start 11/28/16 at 20:30; Status Cancel Ondansetron HCl (Zofran) 4 mg PRN Q8HRS PRN IV NAUSEA/VOMITING; Start 11/28/16 at 20:30; Status Cancel Albuterol Sulfate (Ventolin Neb Soln) 2.5 mg PRN Q4HRS PRN NEB SHORTNESS OF BREATH; Start 11/28/16 at 20:30; Status Cancel Acetaminophen (Tylenol) 325 mg PRN Q6HRS PRN PO MILD PAIN / TEMP; Start at 20:45; Stop 11/29/16 at 13:49; Status DC Acetaminophen/ Hydrocodone Bitart (Lortab 5/325) 1 tab PRN Q6HRS PRN PO MODERATE TO SEVERE PAIN; Start 11/28/16 at 20:45; Stop 11/29/16 at 14:31; Status DC Hydralazine HCl (Apresoline) 10 mg PRN Q4HRS PRN IVP ELEVATED BP, SEE COMMENTS ; Start 11/28/16 at 20:45 Ondansetron HCl (Zofran) 4 mg PRN Q8HRS PRN IV NAUSEA/VOMITING; Start 11/28/16 at 20:45; Stop 11/29/16 at 10:11; Status DC Albuterol Sulfate (Ventolin Neb Soln) 2.5 mg PRN Q4HRS PRN NEB SHORTNESS OF BREATH; Start 11/28/16 at 20:45 Meclizine HCl (Antivert) 12.5 mg PRN Q6HRS PRN PO DIZZINESS Last administered on 11/29/16t 03:50; Start 11/28/16 at 20:45; Stop 11/29/16 at 10:11; Status DC Meclizine HCl (Antivert) 25 mg PRN Q6HRS PRN PO DIZZINESS Last administered on 11/29/16t 10:33; Start 11/29/16 at 10:15; Stop 11/29/16 at 14:01; Status DC Ondansetron HCl (Zofran) 4 mg PRN Q6HRS PRN IV NAUSEA/VOMITING 1ST CHOICE; Start 11/29/16 at 20:45 Acetaminophen (Tylenol) 650 mg PRN Q6HRS PRN PO MILD PAIN / TEMP; Start at 14:00 Meclizine HCl 25 mg 25 mg TID PO Last administered on 12/02/16 15:49; Start at 14:00 Promethazine HCl/ Sodium Chloride (Phenergan/Iv Sodium Chloride 0.9% 50ml) 50.5 ml @ 151.5 mls/ hr PRN Q6HRS PRN IV NAUSEA/VOMITING; Start 11/29/16 at 14:00 Fluticasone Propionate (Flonase) 2 spray DAILY NS Last administered on 08:09; Start 11/29/16 at 14:00 Cetirizine HCl 10 mg 10 mg DAILY PO Last administered on 12/02/16 08:08; Start 11/29/16 at 14:00 Sodium Chloride (Iv Sodium Chloride 0.9% 1000ml Bag) 1,000 ml @ 100 mls/hr Q10H IV Last administered on 12/02/16 06:00; Start 11/29/16 at 14:00 Nicotine (Nicoderm Cq 21mg) 1 patch PRN DAILY PRN TD SMOKING CESSATION; Start 11/29/16 at 14:00 Diazepam (Valium) 5 mg HS PO Last administered on 12/01/16 20:40; Start at 21:00 Acetaminophen/ Butalbital/ Caffeine (Fioricet) 2 tab PRN Q6HRS PRN PO MIGRAINE HEADACHE; Start 11/29/16 at 16:45 Prednisone (Prednisone) 10 mg DAILY PO Last administered on 12/02/16 08:08; Start 11/29/16 at 17:00 Tizanidine HCl (Zanaflex) 4 mg Q8HRS PO Last administered on 12/02/16 15:48; Start 11/29/16 at 17:00 Pantoprazole Sodium (Protonix) 40 mg DAILYAC PO Last administered on 12/02/16 08:08; Start 11/29/16 at 17:00 Tamsulosin HCl (Flomax) 0.4 mg QHS PO Last administered on 12/01/16 20:40; Start 11/29/16 at 21:00 Ascorbic Acid (Vitamin C) 500 mg DAILY PO Last administered on 12/02/16 08:08 ; Start 11/29/16 at 17:00 Iohexol (Omnipaque 350 Mg/ml) 75 ml 1X ONCE IV Last administered on 11/30/16 12:40; Start 11/30/16 at 08:45; Stop 11/30/16 at 08:46; Status DC Info (Do NOT chart on this entry -- for MONITORING) 1 each PRN DAILY PRN MC SEE COMMENTS; Start 11/30/16 at 08:45; Stop 12/02/16 at 08:44; Status DC Senna/Docusate Sodium (Senna Plus) 1 tab BID PO Last administered on 12/02/16 08:09; Start 12/01/16 at 10:30 Bisacodyl (Dulcolax Tab) 10 mg PRN DAILY PRN PO CONSTIPATION; Start 12/01/16 at 10:15 Proparacaine HCl (Alcaine) 1 drop BID OS Last administered on 12/02/16 10:08; Start 12/01/16 at 11:00 Active Scripts Active Reported Tramadol Hcl 50 Mg Tablet 1 Tab PO TID PRN Lipitor (Atorvastatin Calcium) 10 Mg Tablet 1 Tab PO QHS Vitals/I & O Vital Sign - Last 24 Hours 12/01/16 12/01/16 12/01/16 12/02/16 19:40 20:00 23:35 03:12 Temp 97.9 97.5 96.3 97.9 97.5 96.3 Pulse 58 51 53 Resp 16 16 20 B/P 101/52 102/55 132/64 Pulse Ox 95 94 98 O2 Delivery Room Air Room Air Room Air Room Air 12/02/16 12/02/16 12/02/16 12/02/16 07:33 08:15 11:57 14:53 Temp 97.7 97.9 98.2 97.7 97.9 98.2 Pulse 59 57 63 Resp 20 20 20 B/P 129/70 119/63 143/71 Pulse Ox 95 95 95 O2 Delivery Room Air Room Air Room Air Room Air Intake and Output 12/01/16 12/01/16 12/02/16 15:00 23:00 07:00 Intake Total 450 ml 240 ml Output Total 800 ml 550 ml Balance -350 ml -310 ml ANDRES HILL MD Dec 02, 2016 16:33
[2016-12-02 19:00] VITALS: BP 129/62
--- NOTE | 2016-12-02 20:33 | PDOC ---
PROGRESS NOTES Chief Complaint Chief Complaint 1. Dizziness, vertigo and tinnitus: no central lesions on CT/MRI. treat symptomatically. constellation of sx (tinnitus, dizziness) pointing potentially towards Meniere's - ENT consult (O/P) recommended by neuro 2. HLD: on statin 3. Tobacco abuse: nicotine patch while here 4. Obesity: lifestyle changes recommended 5. BPH: on flomax 6. Dispo: awaiting rehab bed Vitals Vitals Vital Signs Date Time Temp Pulse Resp B/P Pulse Ox O2 Delivery O2 Flow Rate FiO2 12/02/16 19:00 97.9 52 20 129/62 97 Room Air 97.9 Physical Exam General: Alert, Oriented X3, Cooperative, No acute distress Heart: Regular rate Lungs: Clear Abdomen: Normal bowel sounds, Soft Extremities: No clubbing, No cyanosis Skin: No rashes, No breakdown Labs LABS Laboratory Tests Test 12/02/16 04:50 White Blood Count 10.3x10^3/uL (4.0-11.0) Red Blood Count 4.88x10^6/uL (4.30-5.70) Hemoglobin 14.0g/dL (13.0-17.5) Hematocrit 42.0% (39.0-53.0) Mean Corpuscular Volume 86fL (79-100) Mean Corpuscular Hemoglobin 29pg (25-35) Mean Corpuscular Hemoglobin Concent 33g/dL (31-37) Red Cell Distribution Width 14.4% (11.5-14.5) Platelet Count 283x10^3/uL (140-400) Neutrophils (%) (Auto) 53% (31-73) Lymphocytes (%) (Auto) 32% (24-48) Monocytes (%) (Auto) 12% (0-9) Eosinophils (%) (Auto) 2% (0-3) Basophils (%) (Auto) 1% (0-3) Neutrophils # (Auto) 5.5x10^3uL (1.8-7.7) Lymphocytes # (Auto) 3.3x10^3/uL (1.0-4.8) Monocytes # (Auto) 1.3x10^3/uL (0.0-1.1) Eosinophils # (Auto) 0.2x10^3/uL (0.0-0.7) Basophils # (Auto) 0.1x10^3/uL (0.0-0.2) Sodium Level 143mmol/L (136-145) Potassium Level 3.8mmol/L (3.5-5.1) Chloride Level 107mmol/L (98-107) Carbon Dioxide Level 28mmol/L (21-32) Anion Gap 8 (6-14) Blood Urea Nitrogen 7mg/dL (8-26) Creatinine 1.0mg/dL (0.7-1.3) Estimated GFR (Cockcroft-Gault) 78.5 Glucose Level 94mg/dL (70-99) Calcium Level 8.5mg/dL (8.5-10.1) Review of Systems Review of Systems sl better, but not moving much Comment Review of Relevant I have reviewed the following items zeke (where applicable) has been applied. Labs Laboratory Tests Test 12/01/16 04:00 12/02/16 04:50 White Blood Count 10.0x10^3/uL (4.0-11.0) 10.3x10^3/uL (4.0-11.0) Red Blood Count 4.84x10^6/uL (4.30-5.70) 4.88x10^6/uL (4.30-5.70) Hemoglobin 14.1g/dL (13.0-17.5) 14.0g/dL (13.0-17.5) Hematocrit 41.3% (39.0-53.0) 42.0% (39.0-53.0) Mean Corpuscular Volume 85fL (79-100) 86fL (79-100) Mean Corpuscular Hemoglobin 29pg (25-35) 29pg (25-35) Mean Corpuscular Hemoglobin Concent 34g/dL (31-37) 33g/dL (31-37) Red Cell Distribution Width 14.2% (11.5-14.5) 14.4% (11.5-14.5) Platelet Count 291x10^3/uL (140-400) 283x10^3/uL (140-400) Neutrophils (%) (Auto) 54% (31-73) 53% (31-73) Lymphocytes (%) (Auto) 33% (24-48) 32% (24-48) Monocytes (%) (Auto) 10% (0-9) 12% (0-9) Eosinophils (%) (Auto) 2% (0-3) 2% (0-3) Basophils (%) (Auto) 1% (0-3) 1% (0-3) Neutrophils # (Auto) 5.4x10^3uL (1.8-7.7) 5.5x10^3uL (1.8-7.7) Lymphocytes # (Auto) 3.3x10^3/uL (1.0-4.8) 3.3x10^3/uL (1.0-4.8) Monocytes # (Auto) 1.0x10^3/uL (0.0-1.1) 1.3x10^3/uL (0.0-1.1) Eosinophils # (Auto) 0.2x10^3/uL (0.0-0.7) 0.2x10^3/uL (0.0-0.7) Basophils # (Auto) 0.1x10^3/uL (0.0-0.2) 0.1x10^3/uL (0.0-0.2) Sodium Level 142mmol/L (136-145) 143mmol/L (136-145) Potassium Level 3.6mmol/L (3.5-5.1) 3.8mmol/L (3.5-5.1) Chloride Level 106mmol/L (98-107) 107mmol/L (98-107) Carbon Dioxide Level 28mmol/L (21-32) 28mmol/L (21-32) Anion Gap 8 (6-14) 8 (6-14) Blood Urea Nitrogen 10mg/dL (8-26) 7mg/dL (8-26) Creatinine 0.9mg/dL (0.7-1.3) 1.0mg/dL (0.7-1.3) Estimated GFR (Cockcroft-Gault) 88.6 78.5 Glucose Level 107mg/dL (70-99) 94mg/dL (70-99) Calcium Level 8.5mg/dL (8.5-10.1) 8.5mg/dL (8.5-10.1) Laboratory Tests Test 12/02/16 04:50 White Blood Count 10.3x10^3/uL (4.0-11.0) Red Blood Count 4.88x10^6/uL (4.30-5.70) Hemoglobin 14.0g/dL (13.0-17.5) Hematocrit 42.0% (39.0-53.0) Mean Corpuscular Volume 86fL (79-100) Mean Corpuscular Hemoglobin 29pg (25-35) Mean Corpuscular Hemoglobin Concent 33g/dL (31-37) Red Cell Distribution Width 14.4% (11.5-14.5) Platelet Count 283x10^3/uL (140-400) Neutrophils (%) (Auto) 53% (31-73) Lymphocytes (%) (Auto) 32% (24-48) Monocytes (%) (Auto) 12% (0-9) Eosinophils (%) (Auto) 2% (0-3) Basophils (%) (Auto) 1% (0-3) Neutrophils # (Auto) 5.5x10^3uL (1.8-7.7) Lymphocytes # (Auto) 3.3x10^3/uL (1.0-4.8) Monocytes # (Auto) 1.3x10^3/uL (0.0-1.1) Eosinophils # (Auto) 0.2x10^3/uL (0.0-0.7) Basophils # (Auto) 0.1x10^3/uL (0.0-0.2) Sodium Level 143mmol/L (136-145) Potassium Level 3.8mmol/L (3.5-5.1) Chloride Level 107mmol/L (98-107) Carbon Dioxide Level 28mmol/L (21-32) Anion Gap 8 (6-14) Blood Urea Nitrogen 7mg/dL (8-26) Creatinine 1.0mg/dL (0.7-1.3) Estimated GFR (Cockcroft-Gault) 78.5 Glucose Level 94mg/dL (70-99) Calcium Level 8.5mg/dL (8.5-10.1) Medications Current Medications Sodium Chloride (Iv Sodium Chloride 0.9% 1000ml Bag) 1,000 ml @ 1,000 mls/hr Q1H IV Last administered on 11/28/16 15:24; Start 11/28/16 at 14:56; Stop at 15:55; Status DC Meclizine HCl (Antivert) 25 mg 1X ONCE PO Last administered on 11/28/16 15:24 ; Start 11/28/16 at 15:00; Stop 11/28/16 at 15:02; Status DC Acetaminophen (Tylenol) 500 mg 1X ONCE PO Last administered on 11/28/16 16:33 ; Start 11/28/16 at 16:30; Stop 11/28/16 at 16:31; Status DC Diazepam (Valium) 2 mg 1X ONCE IV Last administered on 11/28/16 16:34; Start 11/28/16 at 16:30; Stop 11/28/16 at 16:31; Status DC Ondansetron HCl (Zofran) 4 mg PRN Q8HRS PRN IV NAUSEA/VOMITING Last administered on 11/28/16 19:44; Start 11/28/16 at 19:00; Stop 11/29/16 at 18:59 ; Status DC Acetaminophen (Tylenol) 650 mg PRN Q4HRS PRN PO FEVER; Start 11/28/16 at 19:00 ; Stop 11/29/16 at 18:59; Status DC Acetaminophen (Tylenol) 325 mg PRN Q6HRS PRN PO MILD PAIN / TEMP; Start at 20:30; Stop 11/29/16 at 13:49; Status DC Acetaminophen/ Hydrocodone Bitart (Lortab 5/325) 1 tab PRN Q6HRS PRN PO MODERATE TO SEVERE PAIN Last administered on 12/01/16 03:50; Start 11/28/16 at 20:30 Hydralazine HCl (Apresoline) 10 mg PRN Q4HRS PRN IVP ELEVATED BP, SEE COMMENTS ; Start 11/28/16 at 20:30; Status Cancel Ondansetron HCl (Zofran) 4 mg PRN Q8HRS PRN IV NAUSEA/VOMITING; Start 11/28/16 at 20:30; Status Cancel Albuterol Sulfate (Ventolin Neb Soln) 2.5 mg PRN Q4HRS PRN NEB SHORTNESS OF BREATH; Start 11/28/16 at 20:30; Status Cancel Acetaminophen (Tylenol) 325 mg PRN Q6HRS PRN PO MILD PAIN / TEMP; Start at 20:45; Stop 11/29/16 at 13:49; Status DC Acetaminophen/ Hydrocodone Bitart (Lortab 5/325) 1 tab PRN Q6HRS PRN PO MODERATE TO SEVERE PAIN; Start 11/28/16 at 20:45; Stop 11/29/16 at 14:31; Status DC Hydralazine HCl (Apresoline) 10 mg PRN Q4HRS PRN IVP ELEVATED BP, SEE COMMENTS ; Start 11/28/16 at 20:45 Ondansetron HCl (Zofran) 4 mg PRN Q8HRS PRN IV NAUSEA/VOMITING; Start 11/28/16 at 20:45; Stop 11/29/16 at 10:11; Status DC Albuterol Sulfate (Ventolin Neb Soln) 2.5 mg PRN Q4HRS PRN NEB SHORTNESS OF BREATH; Start 11/28/16 at 20:45 Meclizine HCl (Antivert) 12.5 mg PRN Q6HRS PRN PO DIZZINESS Last administered on 11/29/16 03:50; Start 11/28/16 at 20:45; Stop 11/29/16 at 10:11; Status DC Meclizine HCl (Antivert) 25 mg PRN Q6HRS PRN PO DIZZINESS Last administered on 11/29/16 10:33; Start 11/29/16 at 10:15; Stop 11/29/16 at 14:01; Status DC Ondansetron HCl (Zofran) 4 mg PRN Q6HRS PRN IV NAUSEA/VOMITING 1ST CHOICE; Start 11/29/16 at 20:45 Acetaminophen (Tylenol) 650 mg PRN Q6HRS PRN PO MILD PAIN / TEMP; Start at 14:00 Meclizine HCl 25 mg 25 mg TID PO Last administered on 12/02/16 15:49; Start at 14:00 Promethazine HCl/ Sodium Chloride (Phenergan/Iv Sodium Chloride 0.9% 50ml) 50.5 ml @ 151.5 mls/ hr PRN Q6HRS PRN IV NAUSEA/VOMITING; Start 11/29/16 at 14:00 Fluticasone Propionate (Flonase) 2 spray DAILY NS Last administered on 08:09; Start 11/29/16 at 14:00 Cetirizine HCl 10 mg 10 mg DAILY PO Last administered on 12/02/16 08:08; Start 11/29/16 at 14:00 Sodium Chloride (Iv Sodium Chloride 0.9% 1000ml Bag) 1,000 ml @ 100 mls/hr Q10H IV Last administered on 12/02/16 12:00; Start 11/29/16 at 14:00 Nicotine (Nicoderm Cq 21mg) 1 patch PRN DAILY PRN TD SMOKING CESSATION; Start 11/29/16 at 14:00 Diazepam (Valium) 5 mg HS PO Last administered on 12/01/16 20:40; Start at 21:00 Acetaminophen/ Butalbital/ Caffeine (Fioricet) 2 tab PRN Q6HRS PRN PO MIGRAINE HEADACHE; Start 11/29/16 at 16:45 Prednisone (Prednisone) 10 mg DAILY PO Last administered on 12/02/16 08:08; Start 11/29/16 at 17:00 Tizanidine HCl (Zanaflex) 4 mg Q8HRS PO Last administered on 12/02/16 15:48; Start 11/29/16 at 17:00 Pantoprazole Sodium (Protonix) 40 mg DAILYAC PO Last administered on 12/02/16 08:08; Start 11/29/16 at 17:00 Tamsulosin HCl (Flomax) 0.4 mg QHS PO Last administered on 12/01/16 20:40; Start 11/29/16 at 21:00 Ascorbic Acid (Vitamin C) 500 mg DAILY PO Last administered on 12/02/16 08:08 ; Start 11/29/16 at 17:00 Iohexol (Omnipaque 350 Mg/ml) 75 ml 1X ONCE IV Last administered on 11/30/16 12:40; Start 11/30/16 at 08:45; Stop 11/30/16 at 08:46; Status DC Info (Do NOT chart on this entry -- for MONITORING) 1 each PRN DAILY PRN MC SEE COMMENTS; Start 11/30/16 at 08:45; Stop 12/02/16 at 08:44; Status DC Senna/Docusate Sodium (Senna Plus) 1 tab BID PO Last administered on 12/02/16 08:09; Start 12/01/16 at 10:30 Bisacodyl (Dulcolax Tab) 10 mg PRN DAILY PRN PO CONSTIPATION; Start 12/01/16 at 10:15 Proparacaine HCl (Alcaine) 1 drop BID OS Last administered on 12/02/16 10:08; Start 12/01/16 at 11:00 Active Scripts Active Reported Tramadol Hcl 50 Mg Tablet 1 Tab PO TID PRN Lipitor (Atorvastatin Calcium) 10 Mg Tablet 1 Tab PO QHS Vitals/I & O Vital Sign - Last 24 Hours 12/01/16 12/02/16 12/02/16 12/02/16 23:35 03:12 07:33 08:15 Temp 97.5 96.3 97.7 97.5 96.3 97.7 Pulse 51 53 59 Resp 16 20 20 B/P 102/55 132/64 129/70 Pulse Ox 94 98 95 O2 Delivery Room Air Room Air Room Air Room Air 12/02/16 12/02/16 12/02/16 11:57 14:53 19:00 Temp 97.9 98.2 97.9 97.9 98.2 97.9 Pulse 57 63 52 Resp 20 20 20 B/P 119/63 143/71 129/62 Pulse Ox 95 95 97 O2 Delivery Room Air Room Air Room Air Intake and Output 12/01/16 12/01/16 12/02/16 15:00 23:00 07:00 Intake Total 450 ml 240 ml Output Total 800 ml 550 ml Balance -350 ml -310 ml QUIQUE RAY MD Dec 02, 2016 20:33
[2016-12-02] MEDS: TAMSULOSIN 0.4 MG CAP.ER.24H. PO SCH (21:14)
[2016-12-02] MEDS: DIAZEPAM 5 MG TABLET PO SCH (22:34)
[2016-12-02 23:00] VITALS: BP 132/65
[2016-12-03 03:00] VITALS: BP 117/50
[2016-12-03] MEDS: IV NORMAL SALINE 1000ML BAG 1,000 ML IV SCH (05:02)
[2016-12-03 05:19] LABS: BASO # 0.1 x10^3/uL (0.0-0.2); BASO % 1 % (0-3); EOS % 2 % (0-3); HEMATOCRIT 42.6 % (39.0-53.0); HEMOGLOBIN 14.1 g/dL (13.0-17.5); LYMPH # 4.2 x10^3/uL (1.0-4.8); LYMPH % 38 % (24-48); MEAN CORPUSCULAR HEMOGLOBIN 28 pg (25-35); MEAN CORPUSCULAR HGB CONC 33 g/dL (31-37); MEAN CORPUSCULAR VOLUME 86 fL (79-100); MONO % 12 % (0-9); NEUT % 48 % (31-73); PLATELET COUNT 272 x10^3/uL (140-400); RED BLOOD COUNT 4.99 x10^6/uL (4.30-5.70); RED CELL DISTRIBUTION WIDTH 14.7 % (11.5-14.5); WHITE BLOOD COUNT 11.1 x10^3/uL (4.0-11.0)
[2016-12-03] MEDS: tiZANidine 4 MG TABLET. PO SCH ×3 (05:28→22:12)
[2016-12-03 05:41] LABS: CALCIUM 8.6 mg/dL (8.5-10.1); CREATININE 0.9 mg/dL (0.7-1.3); GFR 88.6; POTASSIUM 3.8 mmol/L (3.5-5.1)
[2016-12-03 07:59] VITALS: BP 96/55
[2016-12-03] MEDS: MECLIZINE HCL 12.5 MG TABLET. PO SCH ×3 (09:26→22:10)
[2016-12-03] MEDS: ASCORBIC ACID 500 MG TABLET PO SCH (09:26)
[2016-12-03] MEDS: SENNOSIDES/DOCUSATE 8.6/50MG TABLET. PO SCH ×2 (09:26→21:00)
[2016-12-03] MEDS: PANTOPRAZOLE 40 MG TABLET. PO SCH (09:26)
[2016-12-03] MEDS: CETIRIZINE HCL 10 MG TABLET PO SCH (09:27)
[2016-12-03] MEDS: FLUTICASONE 50MCG/NASAL SPRAY 16GM BOTTLE. NS SCH (09:27)
[2016-12-03] MEDS: PREDNISONE 10 MG TABLET PO SCH (09:27)
[2016-12-03 10:52] VITALS: BP 123/64
[2016-12-03] MEDS: PROPARACAINE 0.5% OPHTH SOLUTION 15ML BOTTLE. OS SCH ×2 (10:56→22:13)
--- NOTE | 2016-12-03 11:58 | PDOC ---
PROGRESS NOTES Chief Complaint Chief Complaint 1. Dizziness, vertigo and tinnitus: no central lesions on CT/MRI. treat symptomatically, actually better today. constellation of sx (tinnitus, dizziness) pointing potentially towards Meniere's - ENT consult (O/P) recommended by neuro 2. HLD: on statin 3. Tobacco abuse: nicotine patch while here 4. Obesity: lifestyle changes recommended 5. BPH: on flomax 6. Dispo: awaiting rehab bed Vitals Vitals Vital Signs Date Time Temp Pulse Resp B/P Pulse Ox O2 Delivery O2 Flow Rate FiO2 12/03/16 10:52 97.7 58 17 123/64 99 Room Air 97.7 Physical Exam General: Alert, Oriented X3, Cooperative, No acute distress Heart: Regular rate Lungs: Clear Abdomen: Normal bowel sounds, Soft Extremities: No clubbing, No cyanosis Skin: No rashes, No breakdown Labs LABS Laboratory Tests Test 12/03/16 04:00 White Blood Count 11.1x10^3/uL (4.0-11.0) Red Blood Count 4.99x10^6/uL (4.30-5.70) Hemoglobin 14.1g/dL (13.0-17.5) Hematocrit 42.6% (39.0-53.0) Mean Corpuscular Volume 86fL (79-100) Mean Corpuscular Hemoglobin 28pg (25-35) Mean Corpuscular Hemoglobin Concent 33g/dL (31-37) Red Cell Distribution Width 14.7% (11.5-14.5) Platelet Count 272x10^3/uL (140-400) Neutrophils (%) (Auto) 48% (31-73) Lymphocytes (%) (Auto) 38% (24-48) Monocytes (%) (Auto) 12% (0-9) Eosinophils (%) (Auto) 2% (0-3) Basophils (%) (Auto) 1% (0-3) Neutrophils # (Auto) 5.3x10^3uL (1.8-7.7) Lymphocytes # (Auto) 4.2x10^3/uL (1.0-4.8) Monocytes # (Auto) 1.3x10^3/uL (0.0-1.1) Eosinophils # (Auto) 0.3x10^3/uL (0.0-0.7) Basophils # (Auto) 0.1x10^3/uL (0.0-0.2) Sodium Level 141mmol/L (136-145) Potassium Level 3.8mmol/L (3.5-5.1) Chloride Level 106mmol/L (98-107) Carbon Dioxide Level 28mmol/L (21-32) Anion Gap 7 (6-14) Blood Urea Nitrogen 8mg/dL (8-26) Creatinine 0.9mg/dL (0.7-1.3) Estimated GFR (Cockcroft-Gault) 88.6 Glucose Level 97mg/dL (70-99) Calcium Level 8.6mg/dL (8.5-10.1) Review of Systems Review of Systems dizziness improved, tinnitus not Comment Review of Relevant Labs Laboratory Tests Test 12/02/16 04:50 12/03/16 04:00 White Blood Count 10.3x10^3/uL (4.0-11.0) 11.1x10^3/uL (4.0-11.0) Red Blood Count 4.88x10^6/uL (4.30-5.70) 4.99x10^6/uL (4.30-5.70) Hemoglobin 14.0g/dL (13.0-17.5) 14.1g/dL (13.0-17.5) Hematocrit 42.0% (39.0-53.0) 42.6% (39.0-53.0) Mean Corpuscular Volume 86fL (79-100) 86fL (79-100) Mean Corpuscular Hemoglobin 29pg (25-35) 28pg (25-35) Mean Corpuscular Hemoglobin Concent 33g/dL (31-37) 33g/dL (31-37) Red Cell Distribution Width 14.4% (11.5-14.5) 14.7% (11.5-14.5) Platelet Count 283x10^3/uL (140-400) 272x10^3/uL (140-400) Neutrophils (%) (Auto) 53% (31-73) 48% (31-73) Lymphocytes (%) (Auto) 32% (24-48) 38% (24-48) Monocytes (%) (Auto) 12% (0-9) 12% (0-9) Eosinophils (%) (Auto) 2% (0-3) 2% (0-3) Basophils (%) (Auto) 1% (0-3) 1% (0-3) Neutrophils # (Auto) 5.5x10^3uL (1.8-7.7) 5.3x10^3uL (1.8-7.7) Lymphocytes # (Auto) 3.3x10^3/uL (1.0-4.8) 4.2x10^3/uL (1.0-4.8) Monocytes # (Auto) 1.3x10^3/uL (0.0-1.1) 1.3x10^3/uL (0.0-1.1) Eosinophils # (Auto) 0.2x10^3/uL (0.0-0.7) 0.3x10^3/uL (0.0-0.7) Basophils # (Auto) 0.1x10^3/uL (0.0-0.2) 0.1x10^3/uL (0.0-0.2) Sodium Level 143mmol/L (136-145) 141mmol/L (136-145) Potassium Level 3.8mmol/L (3.5-5.1) 3.8mmol/L (3.5-5.1) Chloride Level 107mmol/L (98-107) 106mmol/L (98-107) Carbon Dioxide Level 28mmol/L (21-32) 28mmol/L (21-32) Anion Gap 8 (6-14) 7 (6-14) Blood Urea Nitrogen 7mg/dL (8-26) 8mg/dL (8-26) Creatinine 1.0mg/dL (0.7-1.3) 0.9mg/dL (0.7-1.3) Estimated GFR (Cockcroft-Gault) 78.5 88.6 Glucose Level 94mg/dL (70-99) 97mg/dL (70-99) Calcium Level 8.5mg/dL (8.5-10.1) 8.6mg/dL (8.5-10.1) Laboratory Tests Test 12/03/16 04:00 White Blood Count 11.1x10^3/uL (4.0-11.0) Red Blood Count 4.99x10^6/uL (4.30-5.70) Hemoglobin 14.1g/dL (13.0-17.5) Hematocrit 42.6% (39.0-53.0) Mean Corpuscular Volume 86fL (79-100) Mean Corpuscular Hemoglobin 28pg (25-35) Mean Corpuscular Hemoglobin Concent 33g/dL (31-37) Red Cell Distribution Width 14.7% (11.5-14.5) Platelet Count 272x10^3/uL (140-400) Neutrophils (%) (Auto) 48% (31-73) Lymphocytes (%) (Auto) 38% (24-48) Monocytes (%) (Auto) 12% (0-9) Eosinophils (%) (Auto) 2% (0-3) Basophils (%) (Auto) 1% (0-3) Neutrophils # (Auto) 5.3x10^3uL (1.8-7.7) Lymphocytes # (Auto) 4.2x10^3/uL (1.0-4.8) Monocytes # (Auto) 1.3x10^3/uL (0.0-1.1) Eosinophils # (Auto) 0.3x10^3/uL (0.0-0.7) Basophils # (Auto) 0.1x10^3/uL (0.0-0.2) Sodium Level 141mmol/L (136-145) Potassium Level 3.8mmol/L (3.5-5.1) Chloride Level 106mmol/L (98-107) Carbon Dioxide Level 28mmol/L (21-32) Anion Gap 7 (6-14) Blood Urea Nitrogen 8mg/dL (8-26) Creatinine 0.9mg/dL (0.7-1.3) Estimated GFR (Cockcroft-Gault) 88.6 Glucose Level 97mg/dL (70-99) Calcium Level 8.6mg/dL (8.5-10.1) Medications Current Medications Sodium Chloride (Iv Sodium Chloride 0.9% 1000ml Bag) 1,000 ml @ 1,000 mls/hr Q1H IV Last administered on 11/28/16t 15:24; Start 11/28/16 at 14:56; Stop at 15:55; Status DC Meclizine HCl (Antivert) 25 mg 1X ONCE PO Last administered on 11/28/16 15:24 ; Start 11/28/16 at 15:00; Stop 11/28/16 at 15:02; Status DC Acetaminophen (Tylenol) 500 mg 1X ONCE PO Last administered on 11/28/16 16:33 ; Start 11/28/16 at 16:30; Stop 11/28/16 at 16:31; Status DC Diazepam (Valium) 2 mg 1X ONCE IV Last administered on 11/28/16 16:34; Start 11/28/16 at 16:30; Stop 11/28/16 at 16:31; Status DC Ondansetron HCl (Zofran) 4 mg PRN Q8HRS PRN IV NAUSEA/VOMITING Last administered on 11/28/16 19:44; Start 11/28/16 at 19:00; Stop 11/29/16 at 18:59 ; Status DC Acetaminophen (Tylenol) 650 mg PRN Q4HRS PRN PO FEVER; Start 11/28/16 at 19:00 ; Stop 11/29/16 at 18:59; Status DC Acetaminophen (Tylenol) 325 mg PRN Q6HRS PRN PO MILD PAIN / TEMP; Start at 20:30; Stop 11/29/16 at 13:49; Status DC Acetaminophen/ Hydrocodone Bitart (Lortab 5/325) 1 tab PRN Q6HRS PRN PO MODERATE TO SEVERE PAIN Last administered on 12/01/16 03:50; Start 11/28/16 at 20:30 Hydralazine HCl (Apresoline) 10 mg PRN Q4HRS PRN IVP ELEVATED BP, SEE COMMENTS ; Start 11/28/16 at 20:30; Status Cancel Ondansetron HCl (Zofran) 4 mg PRN Q8HRS PRN IV NAUSEA/VOMITING; Start 11/28/16 at 20:30; Status Cancel Albuterol Sulfate (Ventolin Neb Soln) 2.5 mg PRN Q4HRS PRN NEB SHORTNESS OF BREATH; Start 11/28/16 at 20:30; Status Cancel Acetaminophen (Tylenol) 325 mg PRN Q6HRS PRN PO MILD PAIN / TEMP; Start at 20:45; Stop 11/29/16 at 13:49; Status DC Acetaminophen/ Hydrocodone Bitart (Lortab 5/325) 1 tab PRN Q6HRS PRN PO MODERATE TO SEVERE PAIN; Start 11/28/16 at 20:45; Stop 11/29/16 at 14:31; Status DC Hydralazine HCl (Apresoline) 10 mg PRN Q4HRS PRN IVP ELEVATED BP, SEE COMMENTS ; Start 11/28/16 at 20:45 Ondansetron HCl (Zofran) 4 mg PRN Q8HRS PRN IV NAUSEA/VOMITING; Start 11/28/16 at 20:45; Stop 11/29/16 at 10:11; Status DC Albuterol Sulfate (Ventolin Neb Soln) 2.5 mg PRN Q4HRS PRN NEB SHORTNESS OF BREATH; Start 11/28/16 at 20:45 Meclizine HCl (Antivert) 12.5 mg PRN Q6HRS PRN PO DIZZINESS Last administered on 11/29/16 03:50; Start 11/28/16 at 20:45; Stop 11/29/16 at 10:11; Status DC Meclizine HCl (Antivert) 25 mg PRN Q6HRS PRN PO DIZZINESS Last administered on 11/29/16 10:33; Start 11/29/16 at 10:15; Stop 11/29/16 at 14:01; Status DC Ondansetron HCl (Zofran) 4 mg PRN Q6HRS PRN IV NAUSEA/VOMITING 1ST CHOICE; Start 11/29/16 at 20:45 Acetaminophen (Tylenol) 650 mg PRN Q6HRS PRN PO MILD PAIN / TEMP; Start at 14:00 Meclizine HCl 25 mg 25 mg TID PO Last administered on 12/03/16 09:26; Start at 14:00 Promethazine HCl/ Sodium Chloride (Phenergan/Iv Sodium Chloride 0.9% 50ml) 50.5 ml @ 151.5 mls/ hr PRN Q6HRS PRN IV NAUSEA/VOMITING; Start 11/29/16 at 14:00 Fluticasone Propionate (Flonase) 2 spray DAILY NS Last administered on 09:27; Start 11/29/16 at 14:00 Cetirizine HCl 10 mg 10 mg DAILY PO Last administered on 12/03/16 09:27; Start 11/29/16 at 14:00 Sodium Chloride (Iv Sodium Chloride 0.9% 1000ml Bag) 1,000 ml @ 100 mls/hr Q10H IV Last administered on 12/03/16 05:02; Start 11/29/16 at 14:00 Nicotine (Nicoderm Cq 21mg) 1 patch PRN DAILY PRN TD SMOKING CESSATION; Start 11/29/16 at 14:00 Diazepam (Valium) 5 mg HS PO Last administered on 12/02/16 22:34; Start at 21:00 Acetaminophen/ Butalbital/ Caffeine (Fioricet) 2 tab PRN Q6HRS PRN PO MIGRAINE HEADACHE; Start 11/29/16 at 16:45 Prednisone (Prednisone) 10 mg DAILY PO Last administered on 12/03/16 09:27; Start 11/29/16 at 17:00 Tizanidine HCl (Zanaflex) 4 mg Q8HRS PO Last administered on 12/03/16 05:28; Start 11/29/16 at 17:00 Pantoprazole Sodium (Protonix) 40 mg DAILYAC PO Last administered on 12/03/16 09:26; Start 11/29/16 at 17:00 Tamsulosin HCl (Flomax) 0.4 mg QHS PO Last administered on 12/02/16 21:14; Start 11/29/16 at 21:00 Ascorbic Acid (Vitamin C) 500 mg DAILY PO Last administered on 12/03/16 09:26 ; Start 11/29/16 at 17:00 Iohexol (Omnipaque 350 Mg/ml) 75 ml 1X ONCE IV Last administered on 11/30/16 12:40; Start 11/30/16 at 08:45; Stop 11/30/16 at 08:46; Status DC Info (Do NOT chart on this entry -- for MONITORING) 1 each PRN DAILY PRN MC SEE COMMENTS; Start 11/30/16 at 08:45; Stop 12/02/16 at 08:44; Status DC Senna/Docusate Sodium (Senna Plus) 1 tab BID PO Last administered on 12/03/16 09:26; Start 12/01/16 at 10:30 Bisacodyl (Dulcolax Tab) 10 mg PRN DAILY PRN PO CONSTIPATION; Start 12/01/16 at 10:15 Proparacaine HCl (Alcaine) 1 drop BID OS Last administered on 12/03/16 10:56; Start 12/01/16 at 11:00 Active Scripts Active Reported Tramadol Hcl 50 Mg Tablet 1 Tab PO TID PRN Lipitor (Atorvastatin Calcium) 10 Mg Tablet 1 Tab PO QHS Vitals/I & O Vital Sign - Last 24 Hours 12/02/16 12/02/16 12/02/16 12/02/16 14:53 19:00 20:00 23:00 Temp 98.2 97.9 97.9 98.2 97.9 97.9 Pulse 63 52 56 Resp 20 20 20 B/P 143/71 129/62 132/65 Pulse Ox 95 97 96 O2 Delivery Room Air Room Air Room Air Room Air 12/03/16 12/03/16 12/03/16 03:00 07:59 10:52 Temp 98.1 97.5 97.7 98.1 97.5 97.7 Pulse 52 54 58 Resp 21 18 17 B/P 117/50 96/55 123/64 Pulse Ox 97 94 99 O2 Delivery Room Air Room Air Room Air Intake and Output 12/02/16 12/02/16 12/03/16 15:00 23:00 07:00 Intake Total 1250 ml 300 ml Output Total 550 ml 1 ml 450 ml Balance -550 ml 1249 ml -150 ml QUIQUE RAY MD Dec 03, 2016 11:58
[2016-12-03 14:55] VITALS: BP 124/71
--- NOTE | 2016-12-03 16:09 | PDOC ---
PROGRESS NOTES Assessment Problems Medical Problems: (1) Dizziness Status: Acute (2) Tinnitus Status: Acute Problems: Plan of Care: Continue current Tx, Mgmt Plan Peripheral vertigo, no evidence of central cause, + tinnitus Patient feeling better some hearing problems per . the MRI and CT no structural cause of this. Plan Continue supportive care, Zofran, meclizine Outpatient ENT consult ? menieres dz Thyroid mass can be followed by primary care physician Can be discharged from neurology prospective Please call back as needed. follow up neurology clinic. Subjective feeling better no acute events Objective Vital Signs Date Time Temp Pulse Resp B/P Pulse Ox O2 Delivery O2 Flow Rate FiO2 12/03/16 14:55 97.7 65 18 124/71 95 Room Air 97.7 Intake and Output 12/03/16 07:00 Intake Total 1550 ml Output Total 1001 ml Balance 549 ml Intake Oral 1550 ml Output Urine Total 1000 ml Urine/Stool Mix 1 ml # Voids 10 PHYSICAL EXAM Ms clear Alert. Oriented to time, place and person. PERRL. EOMI. CN: no focal findings. Normal hearing Muscle tone: normal. Muscle strength: 5/5 DTR: 2+ Plantar reflex: flexor Gait: improved, still a little unsteady Sensory exam: no abnormal findings. Review of Relevant I have reviewed the following items zeke (where applicable) has been applied. Labs Laboratory Tests Test 12/02/16 04:50 12/03/16 04:00 White Blood Count 10.3x10^3/uL (4.0-11.0) 11.1x10^3/uL (4.0-11.0) Red Blood Count 4.88x10^6/uL (4.30-5.70) 4.99x10^6/uL (4.30-5.70) Hemoglobin 14.0g/dL (13.0-17.5) 14.1g/dL (13.0-17.5) Hematocrit 42.0% (39.0-53.0) 42.6% (39.0-53.0) Mean Corpuscular Volume 86fL (79-100) 86fL (79-100) Mean Corpuscular Hemoglobin 29pg (25-35) 28pg (25-35) Mean Corpuscular Hemoglobin Concent 33g/dL (31-37) 33g/dL (31-37) Red Cell Distribution Width 14.4% (11.5-14.5) 14.7% (11.5-14.5) Platelet Count 283x10^3/uL (140-400) 272x10^3/uL (140-400) Neutrophils (%) (Auto) 53% (31-73) 48% (31-73) Lymphocytes (%) (Auto) 32% (24-48) 38% (24-48) Monocytes (%) (Auto) 12% (0-9) 12% (0-9) Eosinophils (%) (Auto) 2% (0-3) 2% (0-3) Basophils (%) (Auto) 1% (0-3) 1% (0-3) Neutrophils # (Auto) 5.5x10^3uL (1.8-7.7) 5.3x10^3uL (1.8-7.7) Lymphocytes # (Auto) 3.3x10^3/uL (1.0-4.8) 4.2x10^3/uL (1.0-4.8) Monocytes # (Auto) 1.3x10^3/uL (0.0-1.1) 1.3x10^3/uL (0.0-1.1) Eosinophils # (Auto) 0.2x10^3/uL (0.0-0.7) 0.3x10^3/uL (0.0-0.7) Basophils # (Auto) 0.1x10^3/uL (0.0-0.2) 0.1x10^3/uL (0.0-0.2) Sodium Level 143mmol/L (136-145) 141mmol/L (136-145) Potassium Level 3.8mmol/L (3.5-5.1) 3.8mmol/L (3.5-5.1) Chloride Level 107mmol/L (98-107) 106mmol/L (98-107) Carbon Dioxide Level 28mmol/L (21-32) 28mmol/L (21-32) Anion Gap 8 (6-14) 7 (6-14) Blood Urea Nitrogen 7mg/dL (8-26) 8mg/dL (8-26) Creatinine 1.0mg/dL (0.7-1.3) 0.9mg/dL (0.7-1.3) Estimated GFR (Cockcroft-Gault) 78.5 88.6 Glucose Level 94mg/dL (70-99) 97mg/dL (70-99) Calcium Level 8.5mg/dL (8.5-10.1) 8.6mg/dL (8.5-10.1) Laboratory Tests Test 12/03/16 04:00 White Blood Count 11.1x10^3/uL (4.0-11.0) Red Blood Count 4.99x10^6/uL (4.30-5.70) Hemoglobin 14.1g/dL (13.0-17.5) Hematocrit 42.6% (39.0-53.0) Mean Corpuscular Volume 86fL (79-100) Mean Corpuscular Hemoglobin 28pg (25-35) Mean Corpuscular Hemoglobin Concent 33g/dL (31-37) Red Cell Distribution Width 14.7% (11.5-14.5) Platelet Count 272x10^3/uL (140-400) Neutrophils (%) (Auto) 48% (31-73) Lymphocytes (%) (Auto) 38% (24-48) Monocytes (%) (Auto) 12% (0-9) Eosinophils (%) (Auto) 2% (0-3) Basophils (%) (Auto) 1% (0-3) Neutrophils # (Auto) 5.3x10^3uL (1.8-7.7) Lymphocytes # (Auto) 4.2x10^3/uL (1.0-4.8) Monocytes # (Auto) 1.3x10^3/uL (0.0-1.1) Eosinophils # (Auto) 0.3x10^3/uL (0.0-0.7) Basophils # (Auto) 0.1x10^3/uL (0.0-0.2) Sodium Level 141mmol/L (136-145) Potassium Level 3.8mmol/L (3.5-5.1) Chloride Level 106mmol/L (98-107) Carbon Dioxide Level 28mmol/L (21-32) Anion Gap 7 (6-14) Blood Urea Nitrogen 8mg/dL (8-26) Creatinine 0.9mg/dL (0.7-1.3) Estimated GFR (Cockcroft-Gault) 88.6 Glucose Level 97mg/dL (70-99) Calcium Level 8.6mg/dL (8.5-10.1) Medications Current Medications Sodium Chloride (Iv Sodium Chloride 0.9% 1000ml Bag) 1,000 ml @ 1,000 mls/hr Q1H IV Last administered on 11/28/16 15:24; Start 11/28/16 at 14:56; Stop at 15:55; Status DC Meclizine HCl (Antivert) 25 mg 1X ONCE PO Last administered on 11/28/16 15:24 ; Start 11/28/16 at 15:00; Stop 11/28/16 at 15:02; Status DC Acetaminophen (Tylenol) 500 mg 1X ONCE PO Last administered on 11/28/16 16:33 ; Start 11/28/16 at 16:30; Stop 11/28/16 at 16:31; Status DC Diazepam (Valium) 2 mg 1X ONCE IV Last administered on 11/28/16 16:34; Start 11/28/16 at 16:30; Stop 11/28/16 at 16:31; Status DC Ondansetron HCl (Zofran) 4 mg PRN Q8HRS PRN IV NAUSEA/VOMITING Last administered on 11/28/16 19:44; Start 11/28/16 at 19:00; Stop 11/29/16 at 18:59 ; Status DC Acetaminophen (Tylenol) 650 mg PRN Q4HRS PRN PO FEVER; Start 11/28/16 at 19:00 ; Stop 11/29/16 at 18:59; Status DC Acetaminophen (Tylenol) 325 mg PRN Q6HRS PRN PO MILD PAIN / TEMP; Start at 20:30; Stop 11/29/16 at 13:49; Status DC Acetaminophen/ Hydrocodone Bitart (Lortab 5/325) 1 tab PRN Q6HRS PRN PO MODERATE TO SEVERE PAIN Last administered on 12/01/16 03:50; Start 11/28/16 at 20:30 Hydralazine HCl (Apresoline) 10 mg PRN Q4HRS PRN IVP ELEVATED BP, SEE COMMENTS ; Start 11/28/16 at 20:30; Status Cancel Ondansetron HCl (Zofran) 4 mg PRN Q8HRS PRN IV NAUSEA/VOMITING; Start 11/28/16 at 20:30; Status Cancel Albuterol Sulfate (Ventolin Neb Soln) 2.5 mg PRN Q4HRS PRN NEB SHORTNESS OF BREATH; Start 11/28/16 at 20:30; Status Cancel Acetaminophen (Tylenol) 325 mg PRN Q6HRS PRN PO MILD PAIN / TEMP; Start at 20:45; Stop 11/29/16 at 13:49; Status DC Acetaminophen/ Hydrocodone Bitart (Lortab 5/325) 1 tab PRN Q6HRS PRN PO MODERATE TO SEVERE PAIN; Start 11/28/16 at 20:45; Stop 11/29/16 at 14:31; Status DC Hydralazine HCl (Apresoline) 10 mg PRN Q4HRS PRN IVP ELEVATED BP, SEE COMMENTS ; Start 11/28/16 at 20:45 Ondansetron HCl (Zofran) 4 mg PRN Q8HRS PRN IV NAUSEA/VOMITING; Start 11/28/16 at 20:45; Stop 11/29/16 at 10:11; Status DC Albuterol Sulfate (Ventolin Neb Soln) 2.5 mg PRN Q4HRS PRN NEB SHORTNESS OF BREATH; Start 11/28/16 at 20:45 Meclizine HCl (Antivert) 12.5 mg PRN Q6HRS PRN PO DIZZINESS Last administered on 11/29/16 03:50; Start 11/28/16 at 20:45; Stop 11/29/16 at 10:11; Status DC Meclizine HCl (Antivert) 25 mg PRN Q6HRS PRN PO DIZZINESS Last administered on 11/29/16 10:33; Start 11/29/16 at 10:15; Stop 11/29/16 at 14:01; Status DC Ondansetron HCl (Zofran) 4 mg PRN Q6HRS PRN IV NAUSEA/VOMITING 1ST CHOICE; Start 11/29/16 at 20:45 Acetaminophen (Tylenol) 650 mg PRN Q6HRS PRN PO MILD PAIN / TEMP; Start at 14:00 Meclizine HCl 25 mg 25 mg TID PO Last administered on 12/03/16 14:19; Start at 14:00 Promethazine HCl/ Sodium Chloride (Phenergan/Iv Sodium Chloride 0.9% 50ml) 50.5 ml @ 151.5 mls/ hr PRN Q6HRS PRN IV NAUSEA/VOMITING; Start 11/29/16 at 14:00 Fluticasone Propionate (Flonase) 2 spray DAILY NS Last administered on 09:27; Start 11/29/16 at 14:00 Cetirizine HCl 10 mg 10 mg DAILY PO Last administered on 12/03/16 09:27; Start 11/29/16 at 14:00 Sodium Chloride (Iv Sodium Chloride 0.9% 1000ml Bag) 1,000 ml @ 100 mls/hr Q10H IV Last administered on 12/03/16 05:02; Start 11/29/16 at 14:00; Stop at 15:34; Status DC Nicotine (Nicoderm Cq 21mg) 1 patch PRN DAILY PRN TD SMOKING CESSATION; Start 11/29/16 at 14:00 Diazepam (Valium) 5 mg HS PO Last administered on 12/02/16 22:34; Start at 21:00 Acetaminophen/ Butalbital/ Caffeine (Fioricet) 2 tab PRN Q6HRS PRN PO MIGRAINE HEADACHE; Start 11/29/16 at 16:45 Prednisone (Prednisone) 10 mg DAILY PO Last administered on 12/03/16 09:27; Start 11/29/16 at 17:00 Tizanidine HCl (Zanaflex) 4 mg Q8HRS PO Last administered on 12/03/16 14:19; Start 11/29/16 at 17:00 Pantoprazole Sodium (Protonix) 40 mg DAILYAC PO Last administered on 12/03/16 09:26; Start 11/29/16 at 17:00 Tamsulosin HCl (Flomax) 0.4 mg QHS PO Last administered on 12/02/16 21:14; Start 11/29/16 at 21:00 Ascorbic Acid (Vitamin C) 500 mg DAILY PO Last administered on 12/03/16 09:26 ; Start 11/29/16 at 17:00 Iohexol (Omnipaque 350 Mg/ml) 75 ml 1X ONCE IV Last administered on 11/30/16 12:40; Start 11/30/16 at 08:45; Stop 11/30/16 at 08:46; Status DC Info (Do NOT chart on this entry -- for MONITORING) 1 each PRN DAILY PRN MC SEE COMMENTS; Start 11/30/16 at 08:45; Stop 12/02/16 at 08:44; Status DC Senna/Docusate Sodium (Senna Plus) 1 tab BID PO Last administered on 12/03/16 09:26; Start 12/01/16 at 10:30 Bisacodyl (Dulcolax Tab) 10 mg PRN DAILY PRN PO CONSTIPATION; Start 12/01/16 at 10:15 Proparacaine HCl (Alcaine) 1 drop BID OS Last administered on 12/03/16 10:56; Start 12/01/16 at 11:00 Active Scripts Active Reported Tramadol Hcl 50 Mg Tablet 1 Tab PO TID PRN Lipitor (Atorvastatin Calcium) 10 Mg Tablet 1 Tab PO QHS Vitals/I & O Vital Sign - Last 24 Hours 12/02/16 12/02/16 12/02/16 12/03/16 19:00 20:00 23:00 03:00 Temp 97.9 97.9 98.1 97.9 97.9 98.1 Pulse 52 56 52 Resp 20 20 21 B/P 129/62 132/65 117/50 Pulse Ox 97 96 97 O2 Delivery Room Air Room Air Room Air Room Air 12/03/16 12/03/16 12/03/16 07:59 10:52 14:55 Temp 97.5 97.7 97.7 97.5 97.7 97.7 Pulse 54 58 65 Resp 18 17 18 B/P 96/55 123/64 124/71 Pulse Ox 94 99 95 O2 Delivery Room Air Room Air Room Air Intake and Output 12/02/16 12/02/16 12/03/16 15:00 23:00 07:00 Intake Total 1250 ml 300 ml Output Total 550 ml 1 ml 450 ml Balance -550 ml 1249 ml -150 ml ANDRES HILL MD Dec 03, 2016 16:08
[2016-12-03 19:00] VITALS: BP 116/47
[2016-12-03] MEDS: DIAZEPAM 5 MG TABLET PO SCH (22:10)
[2016-12-03] MEDS: TAMSULOSIN 0.4 MG CAP.ER.24H. PO SCH (22:11)
[2016-12-03 23:00] VITALS: BP 107/57
[2016-12-04 03:00] VITALS: BP 131/63
[2016-12-04] MEDS: tiZANidine 4 MG TABLET. PO SCH ×3 (05:20→20:18)
[2016-12-04 05:22] LABS: BASO # 0.1 x10^3/uL (0.0-0.2); BASO % 1 % (0-3); EOS % 2 % (0-3); HEMATOCRIT 41.8 % (39.0-53.0); LYMPH # 4.3 x10^3/uL (1.0-4.8); LYMPH % 36 % (24-48); MEAN CORPUSCULAR HEMOGLOBIN 29 pg (25-35); MEAN CORPUSCULAR HGB CONC 34 g/dL (31-37); MEAN CORPUSCULAR VOLUME 85 fL (79-100); MONO % 10 % (0-9); NEUT % 51 % (31-73); PLATELET COUNT 283 x10^3/uL (140-400); RED CELL DISTRIBUTION WIDTH 14.3 % (11.5-14.5); WHITE BLOOD COUNT 11.7 x10^3/uL (4.0-11.0)
[2016-12-04 05:49] LABS: CALCIUM 8.5 mg/dL (8.5-10.1); GFR 78.5; POTASSIUM 4.1 mmol/L (3.5-5.1)
[2016-12-04 07:26] VITALS: BP 104/59
[2016-12-04] MEDS: SENNOSIDES/DOCUSATE 8.6/50MG TABLET. PO SCH ×2 (08:41→20:18)
[2016-12-04] MEDS: ASCORBIC ACID 500 MG TABLET PO SCH (08:41)
[2016-12-04] MEDS: PANTOPRAZOLE 40 MG TABLET. PO SCH (08:41)
[2016-12-04] MEDS: FLUTICASONE 50MCG/NASAL SPRAY 16GM BOTTLE. NS SCH (08:41)
[2016-12-04] MEDS: PREDNISONE 10 MG TABLET PO SCH (08:41)
[2016-12-04] MEDS: PROPARACAINE 0.5% OPHTH SOLUTION 15ML BOTTLE. OS SCH ×2 (08:41→20:17)
[2016-12-04] MEDS: MECLIZINE HCL 12.5 MG TABLET. PO SCH ×3 (08:41→20:17)
[2016-12-04] MEDS: CETIRIZINE HCL 10 MG TABLET PO SCH (08:41)
[2016-12-04] MEDS ORDERED: CETI10TA16 PO (09:35)
[2016-12-04] MEDS ORDERED: MECL25TA3 PO (09:35)
[2016-12-04] MEDS ORDERED: TIZA4CAP PO (09:35)
[2016-12-04] MEDS ORDERED: TAMS0.4C97 PO (09:35)
[2016-12-04] MEDS ORDERED: DIAZ5TAB PO (09:35)
[2016-12-04] MEDS ORDERED: PRED-220 PO (09:35)
--- NOTE | 2016-12-04 09:36 | PDOC ---
PROGRESS NOTES Subjective Subjective He continues with dizziness and balance problems. Objective Objective Vital Signs Date Time Temp Pulse Resp B/P Pulse Ox O2 Delivery O2 Flow Rate FiO2 12/04/16 07:26 98.1 50 18 104/59 95 Room Air 98.1 Intake and Output 12/04/16 07:00 Intake Total 1620 ml Output Total 480 ml Balance 1140 ml Intake Oral 1620 ml Output Urine Total 480 ml # Voids 2 # Bowel Movements 3 Physical Exam Physical Exam He is alert and comfortable.He continues with ataxic gait using roller walker under supervision and gets tired easily. Assessment Assessment Problems Medical Problems: (1) Dizziness Status: Acute (2) Meniere disease Status: Acute (3) Tinnitus Status: Acute Plan Plan of Care To rehab hospital when arrangements are completed. Comment Review of Relevant I have reviewed the following items zeke (where applicable) has been applied. Labs Laboratory Tests Test 12/03/16 04:00 12/04/16 05:00 White Blood Count 11.1x10^3/uL (4.0-11.0) 11.7x10^3/uL (4.0-11.0) Red Blood Count 4.99x10^6/uL (4.30-5.70) 4.90x10^6/uL (4.30-5.70) Hemoglobin 14.1g/dL (13.0-17.5) 14.0g/dL (13.0-17.5) Hematocrit 42.6% (39.0-53.0) 41.8% (39.0-53.0) Mean Corpuscular Volume 86fL (79-100) 85fL (79-100) Mean Corpuscular Hemoglobin 28pg (25-35) 29pg (25-35) Mean Corpuscular Hemoglobin Concent 33g/dL (31-37) 34g/dL (31-37) Red Cell Distribution Width 14.7% (11.5-14.5) 14.3% (11.5-14.5) Platelet Count 272x10^3/uL (140-400) 283x10^3/uL (140-400) Neutrophils (%) (Auto) 48% (31-73) 51% (31-73) Lymphocytes (%) (Auto) 38% (24-48) 36% (24-48) Monocytes (%) (Auto) 12% (0-9) 10% (0-9) Eosinophils (%) (Auto) 2% (0-3) 2% (0-3) Basophils (%) (Auto) 1% (0-3) 1% (0-3) Neutrophils # (Auto) 5.3x10^3uL (1.8-7.7) 6.0x10^3uL (1.8-7.7) Lymphocytes # (Auto) 4.2x10^3/uL (1.0-4.8) 4.3x10^3/uL (1.0-4.8) Monocytes # (Auto) 1.3x10^3/uL (0.0-1.1) 1.2x10^3/uL (0.0-1.1) Eosinophils # (Auto) 0.3x10^3/uL (0.0-0.7) 0.2x10^3/uL (0.0-0.7) Basophils # (Auto) 0.1x10^3/uL (0.0-0.2) 0.1x10^3/uL (0.0-0.2) Sodium Level 141mmol/L (136-145) 141mmol/L (136-145) Potassium Level 3.8mmol/L (3.5-5.1) 4.1mmol/L (3.5-5.1) Chloride Level 106mmol/L (98-107) 105mmol/L (98-107) Carbon Dioxide Level 28mmol/L (21-32) 28mmol/L (21-32) Anion Gap 7 (6-14) 8 (6-14) Blood Urea Nitrogen 8mg/dL (8-26) 10mg/dL (8-26) Creatinine 0.9mg/dL (0.7-1.3) 1.0mg/dL (0.7-1.3) Estimated GFR (Cockcroft-Gault) 88.6 78.5 Glucose Level 97mg/dL (70-99) 99mg/dL (70-99) Calcium Level 8.6mg/dL (8.5-10.1) 8.5mg/dL (8.5-10.1) Laboratory Tests Test 12/04/16 05:00 White Blood Count 11.7x10^3/uL (4.0-11.0) Red Blood Count 4.90x10^6/uL (4.30-5.70) Hemoglobin 14.0g/dL (13.0-17.5) Hematocrit 41.8% (39.0-53.0) Mean Corpuscular Volume 85fL (79-100) Mean Corpuscular Hemoglobin 29pg (25-35) Mean Corpuscular Hemoglobin Concent 34g/dL (31-37) Red Cell Distribution Width 14.3% (11.5-14.5) Platelet Count 283x10^3/uL (140-400) Neutrophils (%) (Auto) 51% (31-73) Lymphocytes (%) (Auto) 36% (24-48) Monocytes (%) (Auto) 10% (0-9) Eosinophils (%) (Auto) 2% (0-3) Basophils (%) (Auto) 1% (0-3) Neutrophils # (Auto) 6.0x10^3uL (1.8-7.7) Lymphocytes # (Auto) 4.3x10^3/uL (1.0-4.8) Monocytes # (Auto) 1.2x10^3/uL (0.0-1.1) Eosinophils # (Auto) 0.2x10^3/uL (0.0-0.7) Basophils # (Auto) 0.1x10^3/uL (0.0-0.2) Sodium Level 141mmol/L (136-145) Potassium Level 4.1mmol/L (3.5-5.1) Chloride Level 105mmol/L (98-107) Carbon Dioxide Level 28mmol/L (21-32) Anion Gap 8 (6-14) Blood Urea Nitrogen 10mg/dL (8-26) Creatinine 1.0mg/dL (0.7-1.3) Estimated GFR (Cockcroft-Gault) 78.5 Glucose Level 99mg/dL (70-99) Calcium Level 8.5mg/dL (8.5-10.1) Medications Current Medications Sodium Chloride (Iv Sodium Chloride 0.9% 1000ml Bag) 1,000 ml @ 1,000 mls/hr Q1H IV Last administered on 11/28/16 15:24; Start 11/28/16 at 14:56; Stop at 15:55; Status DC Meclizine HCl (Antivert) 25 mg 1X ONCE PO Last administered on 11/28/16 15:24 ; Start 11/28/16 at 15:00; Stop 11/28/16 at 15:02; Status DC Acetaminophen (Tylenol) 500 mg 1X ONCE PO Last administered on 11/28/16 16:33 ; Start 11/28/16 at 16:30; Stop 11/28/16 at 16:31; Status DC Diazepam (Valium) 2 mg 1X ONCE IV Last administered on 11/28/16 16:34; Start 11/28/16 at 16:30; Stop 11/28/16 at 16:31; Status DC Ondansetron HCl (Zofran) 4 mg PRN Q8HRS PRN IV NAUSEA/VOMITING Last administered on 11/28/16 19:44; Start 11/28/16 at 19:00; Stop 11/29/16 at 18:59 ; Status DC Acetaminophen (Tylenol) 650 mg PRN Q4HRS PRN PO FEVER; Start 11/28/16 at 19:00 ; Stop 11/29/16 at 18:59; Status DC Acetaminophen (Tylenol) 325 mg PRN Q6HRS PRN PO MILD PAIN / TEMP; Start at 20:30; Stop 11/29/16 at 13:49; Status DC Acetaminophen/ Hydrocodone Bitart (Lortab 5/325) 1 tab PRN Q6HRS PRN PO MODERATE TO SEVERE PAIN Last administered on 12/01/16 03:50; Start 11/28/16 at 20:30 Hydralazine HCl (Apresoline) 10 mg PRN Q4HRS PRN IVP ELEVATED BP, SEE COMMENTS ; Start 11/28/16 at 20:30; Status Cancel Ondansetron HCl (Zofran) 4 mg PRN Q8HRS PRN IV NAUSEA/VOMITING; Start 11/28/16 at 20:30; Status Cancel Albuterol Sulfate (Ventolin Neb Soln) 2.5 mg PRN Q4HRS PRN NEB SHORTNESS OF BREATH; Start 11/28/16 at 20:30; Status Cancel Acetaminophen (Tylenol) 325 mg PRN Q6HRS PRN PO MILD PAIN / TEMP; Start at 20:45; Stop 11/29/16 at 13:49; Status DC Acetaminophen/ Hydrocodone Bitart (Lortab 5/325) 1 tab PRN Q6HRS PRN PO MODERATE TO SEVERE PAIN; Start 11/28/16 at 20:45; Stop 11/29/16 at 14:31; Status DC Hydralazine HCl (Apresoline) 10 mg PRN Q4HRS PRN IVP ELEVATED BP, SEE COMMENTS ; Start 11/28/16 at 20:45 Ondansetron HCl (Zofran) 4 mg PRN Q8HRS PRN IV NAUSEA/VOMITING; Start 11/28/16 at 20:45; Stop 11/29/16 at 10:11; Status DC Albuterol Sulfate (Ventolin Neb Soln) 2.5 mg PRN Q4HRS PRN NEB SHORTNESS OF BREATH; Start 11/28/16 at 20:45 Meclizine HCl (Antivert) 12.5 mg PRN Q6HRS PRN PO DIZZINESS Last administered on 11/29/16 03:50; Start 11/28/16 at 20:45; Stop 11/29/16 at 10:11; Status DC Meclizine HCl (Antivert) 25 mg PRN Q6HRS PRN PO DIZZINESS Last administered on 11/29/16 10:33; Start 11/29/16 at 10:15; Stop 11/29/16 at 14:01; Status DC Ondansetron HCl (Zofran) 4 mg PRN Q6HRS PRN IV NAUSEA/VOMITING 1ST CHOICE; Start 11/29/16 at 20:45 Acetaminophen (Tylenol) 650 mg PRN Q6HRS PRN PO MILD PAIN / TEMP; Start at 14:00 Meclizine HCl 25 mg 25 mg TID PO Last administered on 12/04/16 08:41; Start at 14:00 Promethazine HCl/ Sodium Chloride (Phenergan/Iv Sodium Chloride 0.9% 50ml) 50.5 ml @ 151.5 mls/ hr PRN Q6HRS PRN IV NAUSEA/VOMITING; Start 11/29/16 at 14:00 Fluticasone Propionate (Flonase) 2 spray DAILY NS Last administered on 08:41; Start 11/29/16 at 14:00 Cetirizine HCl 10 mg 10 mg DAILY PO Last administered on 12/04/16 08:41; Start 11/29/16 at 14:00 Sodium Chloride (Iv Sodium Chloride 0.9% 1000ml Bag) 1,000 ml @ 100 mls/hr Q10H IV Last administered on 12/03/16 05:02; Start 11/29/16 at 14:00; Stop at 15:34; Status DC Nicotine (Nicoderm Cq 21mg) 1 patch PRN DAILY PRN TD SMOKING CESSATION; Start 11/29/16 at 14:00 Diazepam (Valium) 5 mg HS PO Last administered on 12/03/16 22:10; Start at 21:00 Acetaminophen/ Butalbital/ Caffeine (Fioricet) 2 tab PRN Q6HRS PRN PO MIGRAINE HEADACHE; Start 11/29/16 at 16:45 Prednisone (Prednisone) 10 mg DAILY PO Last administered on 12/04/16 08:41; Start 11/29/16 at 17:00 Tizanidine HCl (Zanaflex) 4 mg Q8HRS PO Last administered on 12/04/16 05:20; Start 11/29/16 at 17:00 Pantoprazole Sodium (Protonix) 40 mg DAILYAC PO Last administered on 12/04/16 08:41; Start 11/29/16 at 17:00 Tamsulosin HCl (Flomax) 0.4 mg QHS PO Last administered on 12/03/16 22:11; Start 11/29/16 at 21:00 Ascorbic Acid (Vitamin C) 500 mg DAILY PO Last administered on 12/04/16 08:41 ; Start 11/29/16 at 17:00 Iohexol (Omnipaque 350 Mg/ml) 75 ml 1X ONCE IV Last administered on 11/30/16 12:40; Start 11/30/16 at 08:45; Stop 11/30/16 at 08:46; Status DC Info (Do NOT chart on this entry -- for MONITORING) 1 each PRN DAILY PRN MC SEE COMMENTS; Start 11/30/16 at 08:45; Stop 12/02/16 at 08:44; Status DC Senna/Docusate Sodium (Senna Plus) 1 tab BID PO Last administered on 12/04/16 08:41; Start 12/01/16 at 10:30 Bisacodyl (Dulcolax Tab) 10 mg PRN DAILY PRN PO CONSTIPATION; Start 12/01/16 at 10:15 Proparacaine HCl (Alcaine) 1 drop BID OS Last administered on 12/04/16 08:41; Start 12/01/16 at 11:00 Active Scripts Active Reported Tramadol Hcl 50 Mg Tablet 1 Tab PO TID PRN Lipitor (Atorvastatin Calcium) 10 Mg Tablet 1 Tab PO QHS Vitals/I & O Vital Sign - Last 24 Hours 12/03/16 12/03/16 12/03/16 12/03/16 10:52 14:55 19:00 20:00 Temp 97.7 97.7 97.7 97.7 97.7 97.7 Pulse 58 65 60 Resp 17 18 20 B/P 123/64 124/71 116/47 Pulse Ox 99 95 95 O2 Delivery Room Air Room Air Room Air Room Air 12/03/16 12/04/16 12/04/16 23:00 03:00 07:26 Temp 97.9 98.1 97.9 98.1 Pulse 57 54 50 Resp 19 18 B/P 107/57 131/63 104/59 Pulse Ox 94 96 95 O2 Delivery Room Air Room Air Room Air Intake and Output 12/03/16 12/03/16 12/04/16 15:00 23:00 07:00 Intake Total 1120 ml 500 ml Output Total 480 ml Balance 640 ml 500 ml LLUVIA ESPINOZA MD Dec 04, 2016 09:36
--- NOTE | 2016-12-04 10:08 | PDOC ---
PROGRESS NOTES Assessment Problems Medical Problems: (1) Dizziness Status: Acute (2) Meniere disease Status: Acute (3) Tinnitus Status: Acute Peripheral vertigo, no central cause found, probably vestibular neuronitis, also keep in mind possibility of Mnire's disease, new onset Plan No plans for inpatient rehab Outpatient Ear nose and throat consultation especially if symptoms persist I considered emperic thiazide diuretic for Mnire's disease but decided to hold off Subjective Still feels unsteady when he stands Objective Vital Signs Date Time Temp Pulse Resp B/P Pulse Ox O2 Delivery O2 Flow Rate FiO2 12/04/16 07:26 98.1 50 18 104/59 95 Room Air 98.1 Intake and Output 12/04/16 07:00 Intake Total 1620 ml Output Total 480 ml Balance 1140 ml Intake Oral 1620 ml Output Urine Total 480 ml # Voids 2 # Bowel Movements 3 PHYSICAL EXAM Alert. Oriented to time, place and person. PERRL. EOMI. CN: no focal findings. Muscle tone: normal. Muscle strength: 5/5 DTR: 2+ Plantar reflex: flexor Gait: Walks very slowly and deliberately with his walker, really more of a cautious gait than ataxic. Sensory exam: no abnormal findings. No cerebellar signs elicited. Review of Relevant I have reviewed the following items zeke (where applicable) has been applied. Labs Laboratory Tests Test 12/03/16 04:00 12/04/16 05:00 White Blood Count 11.1x10^3/uL (4.0-11.0) 11.7x10^3/uL (4.0-11.0) Red Blood Count 4.99x10^6/uL (4.30-5.70) 4.90x10^6/uL (4.30-5.70) Hemoglobin 14.1g/dL (13.0-17.5) 14.0g/dL (13.0-17.5) Hematocrit 42.6% (39.0-53.0) 41.8% (39.0-53.0) Mean Corpuscular Volume 86fL (79-100) 85fL (79-100) Mean Corpuscular Hemoglobin 28pg (25-35) 29pg (25-35) Mean Corpuscular Hemoglobin Concent 33g/dL (31-37) 34g/dL (31-37) Red Cell Distribution Width 14.7% (11.5-14.5) 14.3% (11.5-14.5) Platelet Count 272x10^3/uL (140-400) 283x10^3/uL (140-400) Neutrophils (%) (Auto) 48% (31-73) 51% (31-73) Lymphocytes (%) (Auto) 38% (24-48) 36% (24-48) Monocytes (%) (Auto) 12% (0-9) 10% (0-9) Eosinophils (%) (Auto) 2% (0-3) 2% (0-3) Basophils (%) (Auto) 1% (0-3) 1% (0-3) Neutrophils # (Auto) 5.3x10^3uL (1.8-7.7) 6.0x10^3uL (1.8-7.7) Lymphocytes # (Auto) 4.2x10^3/uL (1.0-4.8) 4.3x10^3/uL (1.0-4.8) Monocytes # (Auto) 1.3x10^3/uL (0.0-1.1) 1.2x10^3/uL (0.0-1.1) Eosinophils # (Auto) 0.3x10^3/uL (0.0-0.7) 0.2x10^3/uL (0.0-0.7) Basophils # (Auto) 0.1x10^3/uL (0.0-0.2) 0.1x10^3/uL (0.0-0.2) Sodium Level 141mmol/L (136-145) 141mmol/L (136-145) Potassium Level 3.8mmol/L (3.5-5.1) 4.1mmol/L (3.5-5.1) Chloride Level 106mmol/L (98-107) 105mmol/L (98-107) Carbon Dioxide Level 28mmol/L (21-32) 28mmol/L (21-32) Anion Gap 7 (6-14) 8 (6-14) Blood Urea Nitrogen 8mg/dL (8-26) 10mg/dL (8-26) Creatinine 0.9mg/dL (0.7-1.3) 1.0mg/dL (0.7-1.3) Estimated GFR (Cockcroft-Gault) 88.6 78.5 Glucose Level 97mg/dL (70-99) 99mg/dL (70-99) Calcium Level 8.6mg/dL (8.5-10.1) 8.5mg/dL (8.5-10.1) Laboratory Tests Test 12/04/16 05:00 White Blood Count 11.7x10^3/uL (4.0-11.0) Red Blood Count 4.90x10^6/uL (4.30-5.70) Hemoglobin 14.0g/dL (13.0-17.5) Hematocrit 41.8% (39.0-53.0) Mean Corpuscular Volume 85fL (79-100) Mean Corpuscular Hemoglobin 29pg (25-35) Mean Corpuscular Hemoglobin Concent 34g/dL (31-37) Red Cell Distribution Width 14.3% (11.5-14.5) Platelet Count 283x10^3/uL (140-400) Neutrophils (%) (Auto) 51% (31-73) Lymphocytes (%) (Auto) 36% (24-48) Monocytes (%) (Auto) 10% (0-9) Eosinophils (%) (Auto) 2% (0-3) Basophils (%) (Auto) 1% (0-3) Neutrophils # (Auto) 6.0x10^3uL (1.8-7.7) Lymphocytes # (Auto) 4.3x10^3/uL (1.0-4.8) Monocytes # (Auto) 1.2x10^3/uL (0.0-1.1) Eosinophils # (Auto) 0.2x10^3/uL (0.0-0.7) Basophils # (Auto) 0.1x10^3/uL (0.0-0.2) Sodium Level 141mmol/L (136-145) Potassium Level 4.1mmol/L (3.5-5.1) Chloride Level 105mmol/L (98-107) Carbon Dioxide Level 28mmol/L (21-32) Anion Gap 8 (6-14) Blood Urea Nitrogen 10mg/dL (8-26) Creatinine 1.0mg/dL (0.7-1.3) Estimated GFR (Cockcroft-Gault) 78.5 Glucose Level 99mg/dL (70-99) Calcium Level 8.5mg/dL (8.5-10.1) Medications Current Medications Sodium Chloride (Iv Sodium Chloride 0.9% 1000ml Bag) 1,000 ml @ 1,000 mls/hr Q1H IV Last administered on 11/28/16 15:24; Start 11/28/16 at 14:56; Stop at 15:55; Status DC Meclizine HCl (Antivert) 25 mg 1X ONCE PO Last administered on 11/28/16 15:24 ; Start 11/28/16 at 15:00; Stop 11/28/16 at 15:02; Status DC Acetaminophen (Tylenol) 500 mg 1X ONCE PO Last administered on 11/28/16 16:33 ; Start 11/28/16 at 16:30; Stop 11/28/16 at 16:31; Status DC Diazepam (Valium) 2 mg 1X ONCE IV Last administered on 11/28/16 16:34; Start 11/28/16 at 16:30; Stop 11/28/16 at 16:31; Status DC Ondansetron HCl (Zofran) 4 mg PRN Q8HRS PRN IV NAUSEA/VOMITING Last administered on 11/28/16 19:44; Start 11/28/16 at 19:00; Stop 11/29/16 at 18:59 ; Status DC Acetaminophen (Tylenol) 650 mg PRN Q4HRS PRN PO FEVER; Start 11/28/16 at 19:00 ; Stop 11/29/16 at 18:59; Status DC Acetaminophen (Tylenol) 325 mg PRN Q6HRS PRN PO MILD PAIN / TEMP; Start at 20:30; Stop 11/29/16 at 13:49; Status DC Acetaminophen/ Hydrocodone Bitart (Lortab 5/325) 1 tab PRN Q6HRS PRN PO MODERATE TO SEVERE PAIN Last administered on 12/01/16 03:50; Start 11/28/16 at 20:30 Hydralazine HCl (Apresoline) 10 mg PRN Q4HRS PRN IVP ELEVATED BP, SEE COMMENTS ; Start 11/28/16 at 20:30; Status Cancel Ondansetron HCl (Zofran) 4 mg PRN Q8HRS PRN IV NAUSEA/VOMITING; Start 11/28/16 at 20:30; Status Cancel Albuterol Sulfate (Ventolin Neb Soln) 2.5 mg PRN Q4HRS PRN NEB SHORTNESS OF BREATH; Start 11/28/16 at 20:30; Status Cancel Acetaminophen (Tylenol) 325 mg PRN Q6HRS PRN PO MILD PAIN / TEMP; Start at 20:45; Stop 11/29/16 at 13:49; Status DC Acetaminophen/ Hydrocodone Bitart (Lortab 5/325) 1 tab PRN Q6HRS PRN PO MODERATE TO SEVERE PAIN; Start 11/28/16 at 20:45; Stop 11/29/16 at 14:31; Status DC Hydralazine HCl (Apresoline) 10 mg PRN Q4HRS PRN IVP ELEVATED BP, SEE COMMENTS ; Start 11/28/16 at 20:45 Ondansetron HCl (Zofran) 4 mg PRN Q8HRS PRN IV NAUSEA/VOMITING; Start 11/28/16 at 20:45; Stop 11/29/16 at 10:11; Status DC Albuterol Sulfate (Ventolin Neb Soln) 2.5 mg PRN Q4HRS PRN NEB SHORTNESS OF BREATH; Start 11/28/16 at 20:45 Meclizine HCl (Antivert) 12.5 mg PRN Q6HRS PRN PO DIZZINESS Last administered on 11/29/16 03:50; Start 11/28/16 at 20:45; Stop 11/29/16 at 10:11; Status DC Meclizine HCl (Antivert) 25 mg PRN Q6HRS PRN PO DIZZINESS Last administered on 11/29/16 10:33; Start 11/29/16 at 10:15; Stop 11/29/16 at 14:01; Status DC Ondansetron HCl (Zofran) 4 mg PRN Q6HRS PRN IV NAUSEA/VOMITING 1ST CHOICE; Start 11/29/16 at 20:45 Acetaminophen (Tylenol) 650 mg PRN Q6HRS PRN PO MILD PAIN / TEMP; Start at 14:00 Meclizine HCl 25 mg 25 mg TID PO Last administered on 12/04/16 08:41; Start at 14:00 Promethazine HCl/ Sodium Chloride (Phenergan/Iv Sodium Chloride 0.9% 50ml) 50.5 ml @ 151.5 mls/ hr PRN Q6HRS PRN IV NAUSEA/VOMITING; Start 11/29/16 at 14:00 Fluticasone Propionate (Flonase) 2 spray DAILY NS Last administered on 08:41; Start 11/29/16 at 14:00 Cetirizine HCl 10 mg 10 mg DAILY PO Last administered on 12/04/16 08:41; Start 11/29/16 at 14:00 Sodium Chloride (Iv Sodium Chloride 0.9% 1000ml Bag) 1,000 ml @ 100 mls/hr Q10H IV Last administered on 12/03/16 05:02; Start 11/29/16 at 14:00; Stop at 15:34; Status DC Nicotine (Nicoderm Cq 21mg) 1 patch PRN DAILY PRN TD SMOKING CESSATION; Start 11/29/16 at 14:00 Diazepam (Valium) 5 mg HS PO Last administered on 12/03/16 22:10; Start at 21:00 Acetaminophen/ Butalbital/ Caffeine (Fioricet) 2 tab PRN Q6HRS PRN PO MIGRAINE HEADACHE; Start 11/29/16 at 16:45 Prednisone (Prednisone) 10 mg DAILY PO Last administered on 12/04/16 08:41; Start 11/29/16 at 17:00 Tizanidine HCl (Zanaflex) 4 mg Q8HRS PO Last administered on 12/04/16 05:20; Start 11/29/16 at 17:00 Pantoprazole Sodium (Protonix) 40 mg DAILYAC PO Last administered on 12/04/16 08:41; Start 11/29/16 at 17:00 Tamsulosin HCl (Flomax) 0.4 mg QHS PO Last administered on 12/03/16 22:11; Start 11/29/16 at 21:00 Ascorbic Acid (Vitamin C) 500 mg DAILY PO Last administered on 12/04/16 08:41 ; Start 11/29/16 at 17:00 Iohexol (Omnipaque 350 Mg/ml) 75 ml 1X ONCE IV Last administered on 11/30/16 12:40; Start 11/30/16 at 08:45; Stop 11/30/16 at 08:46; Status DC Info (Do NOT chart on this entry -- for MONITORING) 1 each PRN DAILY PRN MC SEE COMMENTS; Start 11/30/16 at 08:45; Stop 12/02/16 at 08:44; Status DC Senna/Docusate Sodium (Senna Plus) 1 tab BID PO Last administered on 12/04/16 08:41; Start 12/01/16 at 10:30 Bisacodyl (Dulcolax Tab) 10 mg PRN DAILY PRN PO CONSTIPATION; Start 12/01/16 at 10:15 Proparacaine HCl (Alcaine) 1 drop BID OS Last administered on 12/04/16 08:41; Start 12/01/16 at 11:00 Active Scripts Active Reported Tramadol Hcl 50 Mg Tablet 1 Tab PO TID PRN Lipitor (Atorvastatin Calcium) 10 Mg Tablet 1 Tab PO QHS Vitals/I & O Vital Sign - Last 24 Hours 12/03/16 12/03/16 12/03/16 12/03/16 10:52 14:55 19:00 20:00 Temp 97.7 97.7 97.7 97.7 97.7 97.7 Pulse 58 65 60 Resp 17 18 20 B/P 123/64 124/71 116/47 Pulse Ox 99 95 95 O2 Delivery Room Air Room Air Room Air Room Air 12/03/16 12/04/16 12/04/16 23:00 03:00 07:26 Temp 97.9 98.1 97.9 98.1 Pulse 57 54 50 Resp 21 19 18 B/P 107/57 131/63 104/59 Pulse Ox 94 96 95 O2 Delivery Room Air Room Air Room Air Intake and Output 12/03/16 12/03/16 12/04/16 15:00 23:00 07:00 Intake Total 1120 ml 500 ml Output Total 480 ml Balance 640 ml 500 ml THOMPSON VALDOVINOS MD Dec 04, 2016 10:08
[2016-12-04 11:00] VITALS: BP 115/66
--- NOTE | 2016-12-04 14:10 | PDOC ---
PROGRESS NOTES Chief Complaint Chief Complaint 1. Dizziness, vertigo and tinnitus: no central lesions on CT/MRI. treat symptomatically, actually better today. constellation of sx (tinnitus, dizziness) pointing potentially towards Meniere's - ENT consult (O/P) recommended by neuro 2. HLD: on statin 3. Tobacco abuse: nicotine patch while here 4. Obesity: lifestyle changes recommended 5. BPH: on flomax 6. Dispo: awaiting rehab bed History of Present Illness History of Present Illness Still dizzy mostly when looking down BUt apparently told pT when he walks BUt overall better with current regimen (meclizine tID and valium qhs) SW still working on insurance for rehab approval PLAN; COnsults cards - dw kg MIght do echo If echo ok, rehab kamron d w pt and and PT [place] Vitals Vitals Vital Signs Date Time Temp Pulse Resp B/P Pulse Ox O2 Delivery O2 Flow Rate FiO2 12/04/16 11:00 97.7 61 17 115/66 96 Room Air 97.7 Physical Exam General: Alert, Oriented X3, Cooperative, No acute distress Heart: Regular rate Lungs: Clear Abdomen: Normal bowel sounds, Soft Extremities: No clubbing, No cyanosis Skin: No rashes, No breakdown Labs LABS Laboratory Tests Test 12/04/16 05:00 White Blood Count 11.7x10^3/uL (4.0-11.0) Red Blood Count 4.90x10^6/uL (4.30-5.70) Hemoglobin 14.0g/dL (13.0-17.5) Hematocrit 41.8% (39.0-53.0) Mean Corpuscular Volume 85fL (79-100) Mean Corpuscular Hemoglobin 29pg (25-35) Mean Corpuscular Hemoglobin Concent 34g/dL (31-37) Red Cell Distribution Width 14.3% (11.5-14.5) Platelet Count 283x10^3/uL (140-400) Neutrophils (%) (Auto) 51% (31-73) Lymphocytes (%) (Auto) 36% (24-48) Monocytes (%) (Auto) 10% (0-9) Eosinophils (%) (Auto) 2% (0-3) Basophils (%) (Auto) 1% (0-3) Neutrophils # (Auto) 6.0x10^3uL (1.8-7.7) Lymphocytes # (Auto) 4.3x10^3/uL (1.0-4.8) Monocytes # (Auto) 1.2x10^3/uL (0.0-1.1) Eosinophils # (Auto) 0.2x10^3/uL (0.0-0.7) Basophils # (Auto) 0.1x10^3/uL (0.0-0.2) Sodium Level 141mmol/L (136-145) Potassium Level 4.1mmol/L (3.5-5.1) Chloride Level 105mmol/L (98-107) Carbon Dioxide Level 28mmol/L (21-32) Anion Gap 8 (6-14) Blood Urea Nitrogen 10mg/dL (8-26) Creatinine 1.0mg/dL (0.7-1.3) Estimated GFR (Cockcroft-Gault) 78.5 Glucose Level 99mg/dL (70-99) Calcium Level 8.5mg/dL (8.5-10.1) Review of Systems Review of Systems dizzy, no nausea, no other sxs Assessment and Plan Assessmemt and Plan Problems Medical Problems: (1) Dizziness Status: Acute (2) Meniere disease Status: Acute (3) Tinnitus Status: Acute Problems: Comment Review of Relevant I have reviewed the following items zeke (where applicable) has been applied. Labs Laboratory Tests Test 12/03/16 04:00 12/04/16 05:00 White Blood Count 11.1x10^3/uL (4.0-11.0) 11.7x10^3/uL (4.0-11.0) Red Blood Count 4.99x10^6/uL (4.30-5.70) 4.90x10^6/uL (4.30-5.70) Hemoglobin 14.1g/dL (13.0-17.5) 14.0g/dL (13.0-17.5) Hematocrit 42.6% (39.0-53.0) 41.8% (39.0-53.0) Mean Corpuscular Volume 86fL (79-100) 85fL (79-100) Mean Corpuscular Hemoglobin 28pg (25-35) 29pg (25-35) Mean Corpuscular Hemoglobin Concent 33g/dL (31-37) 34g/dL (31-37) Red Cell Distribution Width 14.7% (11.5-14.5) 14.3% (11.5-14.5) Platelet Count 272x10^3/uL (140-400) 283x10^3/uL (140-400) Neutrophils (%) (Auto) 48% (31-73) 51% (31-73) Lymphocytes (%) (Auto) 38% (24-48) 36% (24-48) Monocytes (%) (Auto) 12% (0-9) 10% (0-9) Eosinophils (%) (Auto) 2% (0-3) 2% (0-3) Basophils (%) (Auto) 1% (0-3) 1% (0-3) Neutrophils # (Auto) 5.3x10^3uL (1.8-7.7) 6.0x10^3uL (1.8-7.7) Lymphocytes # (Auto) 4.2x10^3/uL (1.0-4.8) 4.3x10^3/uL (1.0-4.8) Monocytes # (Auto) 1.3x10^3/uL (0.0-1.1) 1.2x10^3/uL (0.0-1.1) Eosinophils # (Auto) 0.3x10^3/uL (0.0-0.7) 0.2x10^3/uL (0.0-0.7) Basophils # (Auto) 0.1x10^3/uL (0.0-0.2) 0.1x10^3/uL (0.0-0.2) Sodium Level 141mmol/L (136-145) 141mmol/L (136-145) Potassium Level 3.8mmol/L (3.5-5.1) 4.1mmol/L (3.5-5.1) Chloride Level 106mmol/L (98-107) 105mmol/L (98-107) Carbon Dioxide Level 28mmol/L (21-32) 28mmol/L (21-32) Anion Gap 7 (6-14) 8 (6-14) Blood Urea Nitrogen 8mg/dL (8-26) 10mg/dL (8-26) Creatinine 0.9mg/dL (0.7-1.3) 1.0mg/dL (0.7-1.3) Estimated GFR (Cockcroft-Gault) 88.6 78.5 Glucose Level 97mg/dL (70-99) 99mg/dL (70-99) Calcium Level 8.6mg/dL (8.5-10.1) 8.5mg/dL (8.5-10.1) Laboratory Tests Test 12/04/16 05:00 White Blood Count 11.7x10^3/uL (4.0-11.0) Red Blood Count 4.90x10^6/uL (4.30-5.70) Hemoglobin 14.0g/dL (13.0-17.5) Hematocrit 41.8% (39.0-53.0) Mean Corpuscular Volume 85fL (79-100) Mean Corpuscular Hemoglobin 29pg (25-35) Mean Corpuscular Hemoglobin Concent 34g/dL (31-37) Red Cell Distribution Width 14.3% (11.5-14.5) Platelet Count 283x10^3/uL (140-400) Neutrophils (%) (Auto) 51% (31-73) Lymphocytes (%) (Auto) 36% (24-48) Monocytes (%) (Auto) 10% (0-9) Eosinophils (%) (Auto) 2% (0-3) Basophils (%) (Auto) 1% (0-3) Neutrophils # (Auto) 6.0x10^3uL (1.8-7.7) Lymphocytes # (Auto) 4.3x10^3/uL (1.0-4.8) Monocytes # (Auto) 1.2x10^3/uL (0.0-1.1) Eosinophils # (Auto) 0.2x10^3/uL (0.0-0.7) Basophils # (Auto) 0.1x10^3/uL (0.0-0.2) Sodium Level 141mmol/L (136-145) Potassium Level 4.1mmol/L (3.5-5.1) Chloride Level 105mmol/L (98-107) Carbon Dioxide Level 28mmol/L (21-32) Anion Gap 8 (6-14) Blood Urea Nitrogen 10mg/dL (8-26) Creatinine 1.0mg/dL (0.7-1.3) Estimated GFR (Cockcroft-Gault) 78.5 Glucose Level 99mg/dL (70-99) Calcium Level 8.5mg/dL (8.5-10.1) Medications Current Medications Sodium Chloride (Iv Sodium Chloride 0.9% 1000ml Bag) 1,000 ml @ 1,000 mls/hr Q1H IV Last administered on 11/28/16 15:24; Start 11/28/16 at 14:56; Stop at 15:55; Status DC Meclizine HCl (Antivert) 25 mg 1X ONCE PO Last administered on 11/28/16 15:24 ; Start 11/28/16 at 15:00; Stop 11/28/16 at 15:02; Status DC Acetaminophen (Tylenol) 500 mg 1X ONCE PO Last administered on 11/28/16 16:33 ; Start 11/28/16 at 16:30; Stop 11/28/16 at 16:31; Status DC Diazepam (Valium) 2 mg 1X ONCE IV Last administered on 11/28/16 16:34; Start 11/28/16 at 16:30; Stop 11/28/16 at 16:31; Status DC Ondansetron HCl (Zofran) 4 mg PRN Q8HRS PRN IV NAUSEA/VOMITING Last administered on 11/28/16 19:44; Start 11/28/16 at 19:00; Stop 11/29/16 at 18:59 ; Status DC Acetaminophen (Tylenol) 650 mg PRN Q4HRS PRN PO FEVER; Start 11/28/16 at 19:00 ; Stop 11/29/16 at 18:59; Status DC Acetaminophen (Tylenol) 325 mg PRN Q6HRS PRN PO MILD PAIN / TEMP; Start at 20:30; Stop 11/29/16 at 13:49; Status DC Acetaminophen/ Hydrocodone Bitart (Lortab 5/325) 1 tab PRN Q6HRS PRN PO MODERATE TO SEVERE PAIN Last administered on 12/01/16 03:50; Start 11/28/16 at 20:30 Hydralazine HCl (Apresoline) 10 mg PRN Q4HRS PRN IVP ELEVATED BP, SEE COMMENTS ; Start 11/28/16 at 20:30; Status Cancel Ondansetron HCl (Zofran) 4 mg PRN Q8HRS PRN IV NAUSEA/VOMITING; Start 11/28/16 at 20:30; Status Cancel Albuterol Sulfate (Ventolin Neb Soln) 2.5 mg PRN Q4HRS PRN NEB SHORTNESS OF BREATH; Start 11/28/16 at 20:30; Status Cancel Acetaminophen (Tylenol) 325 mg PRN Q6HRS PRN PO MILD PAIN / TEMP; Start at 20:45; Stop 11/29/16 at 13:49; Status DC Acetaminophen/ Hydrocodone Bitart (Lortab 5/325) 1 tab PRN Q6HRS PRN PO MODERATE TO SEVERE PAIN; Start 11/28/16 at 20:45; Stop 11/29/16 at 14:31; Status DC Hydralazine HCl (Apresoline) 10 mg PRN Q4HRS PRN IVP ELEVATED BP, SEE COMMENTS ; Start 11/28/16 at 20:45 Ondansetron HCl (Zofran) 4 mg PRN Q8HRS PRN IV NAUSEA/VOMITING; Start 11/28/16 at 20:45; Stop 11/29/16 at 10:11; Status DC Albuterol Sulfate (Ventolin Neb Soln) 2.5 mg PRN Q4HRS PRN NEB SHORTNESS OF BREATH; Start 11/28/16 at 20:45 Meclizine HCl (Antivert) 12.5 mg PRN Q6HRS PRN PO DIZZINESS Last administered on 11/29/16t 03:50; Start 11/28/16 at 20:45; Stop 11/29/16 at 10:11; Status DC Meclizine HCl (Antivert) 25 mg PRN Q6HRS PRN PO DIZZINESS Last administered on 11/29/16t 10:33; Start 11/29/16 at 10:15; Stop 11/29/16 at 14:01; Status DC Ondansetron HCl (Zofran) 4 mg PRN Q6HRS PRN IV NAUSEA/VOMITING 1ST CHOICE; Start 11/29/16 at 20:45 Acetaminophen (Tylenol) 650 mg PRN Q6HRS PRN PO MILD PAIN / TEMP; Start at 14:00 Meclizine HCl 25 mg 25 mg TID PO Last administered on 12/04/16 13:36; Start at 14:00 Promethazine HCl/ Sodium Chloride (Phenergan/Iv Sodium Chloride 0.9% 50ml) 50.5 ml @ 151.5 mls/ hr PRN Q6HRS PRN IV NAUSEA/VOMITING; Start 11/29/16 at 14:00 Fluticasone Propionate (Flonase) 2 spray DAILY NS Last administered on 08:41; Start 11/29/16 at 14:00 Cetirizine HCl 10 mg 10 mg DAILY PO Last administered on 12/04/16 08:41; Start 11/29/16 at 14:00 Sodium Chloride (Iv Sodium Chloride 0.9% 1000ml Bag) 1,000 ml @ 100 mls/hr Q10H IV Last administered on 12/03/16 05:02; Start 11/29/16 at 14:00; Stop at 15:34; Status DC Nicotine (Nicoderm Cq 21mg) 1 patch PRN DAILY PRN TD SMOKING CESSATION; Start 11/29/16 at 14:00 Diazepam (Valium) 5 mg HS PO Last administered on 12/03/16 22:10; Start at 21:00 Acetaminophen/ Butalbital/ Caffeine (Fioricet) 2 tab PRN Q6HRS PRN PO MIGRAINE HEADACHE; Start 11/29/16 at 16:45 Prednisone (Prednisone) 10 mg DAILY PO Last administered on 12/04/16 08:41; Start 11/29/16 at 17:00 Tizanidine HCl (Zanaflex) 4 mg Q8HRS PO Last administered on 12/04/16 13:36; Start 11/29/16 at 17:00 Pantoprazole Sodium (Protonix) 40 mg DAILYAC PO Last administered on 12/04/16 08:41; Start 11/29/16 at 17:00 Tamsulosin HCl (Flomax) 0.4 mg QHS PO Last administered on 12/03/16 22:11; Start 11/29/16 at 21:00 Ascorbic Acid (Vitamin C) 500 mg DAILY PO Last administered on 12/04/16 08:41 ; Start 11/29/16 at 17:00 Iohexol (Omnipaque 350 Mg/ml) 75 ml 1X ONCE IV Last administered on 11/30/16 12:40; Start 11/30/16 at 08:45; Stop 11/30/16 at 08:46; Status DC Info (Do NOT chart on this entry -- for MONITORING) 1 each PRN DAILY PRN MC SEE COMMENTS; Start 11/30/16 at 08:45; Stop 12/02/16 at 08:44; Status DC Senna/Docusate Sodium (Senna Plus) 1 tab BID PO Last administered on 12/04/16 08:41; Start 12/01/16 at 10:30 Bisacodyl (Dulcolax Tab) 10 mg PRN DAILY PRN PO CONSTIPATION; Start 12/01/16 at 10:15 Proparacaine HCl (Alcaine) 1 drop BID OS Last administered on 12/04/16 08:41; Start 12/01/16 at 11:00 Active Scripts Active Reported Tramadol Hcl 50 Mg Tablet 1 Tab PO TID PRN Lipitor (Atorvastatin Calcium) 10 Mg Tablet 1 Tab PO QHS Vitals/I & O Vital Sign - Last 24 Hours 12/03/16 12/03/16 12/03/16 12/03/16 14:55 19:00 20:00 23:00 Temp 97.7 97.7 97.9 97.7 97.7 97.9 Pulse 65 60 57 Resp 18 21 B/P 124/71 116/47 107/57 Pulse Ox 95 95 94 O2 Delivery Room Air Room Air Room Air Room Air 12/04/16 12/04/16 12/04/16 12/04/16 03:00 07:26 08:00 11:00 Temp 98.1 97.7 98.1 97.7 Pulse 54 50 61 Resp 19 18 17 B/P 131/63 104/59 115/66 Pulse Ox 96 95 96 O2 Delivery Room Air Room Air Room Air Room Air Intake and Output 12/03/16 12/03/16 12/04/16 15:00 23:00 07:00 Intake Total 1120 ml 500 ml Output Total 480 ml Balance 640 ml 500 ml JOSE RAMON DONALD MD Dec 04, 2016 14:10
[2016-12-04 14:58] VITALS: BP 128/72
--- NOTE | 2016-12-04 16:10 | PDOC2 ---
DORIAN LANDRY PRECISION DANCER 12/04/16 1610: CARDIAC CONSULT DATE OF CONSULT Date of Consult DATE: 12/04/16 TIME: 16:02 REASON FOR CONSULT Reason for Consult: dizzy when looking down REFERRING PHYSICIAN Referring Physician: Dr. Luz SOURCE Source: Chart review, Patient HISTORY OF PRESENT ILLNESS HISTORY OF PRESENT ILLNESS This is a 51 yo male who presented with complaints of dizziness and tinnitus. Patient reports he was sitting eating lunch last week when he suddenly developed dizziness "room was spinning", ringing in the ears with ear pain, and clammy. Patient initially thought blood sugar was low so he ate something, which did not improve symptoms. Called who referred his to the ED for evaluation. Patient started on meclizine, which has improved symptoms. Discuss case with PT- patient having ongoing vertigo with ambulation. Better when sitting in chair. Today, patient reports he was sitting looking down and became lightheaded/dizzy, which prompted this consult. reports he has had PANDYA recently. Prior to episodes last week, patient had been going to gym 6 days per weeks and felt well overall. Plan is to transfer for outpatient rehab and outpatient ENT evaluation. PAST MEDICAL HISTORY Cardiovascular: Hyperlipidemia Pulmonary: No pertinent hx CENTRAL NERVOUS SYSTEM: Other (no pertinent hx) GI: No pertinent hx Heme/Onc: No pertinent hx Hepatobiliary: No pertinent hx Psych: No pertinent hx Musculoskeletal: Osteoarthritis, Other Rheumatologic: No pertinent hx Infectious disease: No pertinent hx ENT: No pertinent hx Renal/: No pertinent hx, Benign prostatic enlarg. Endocrine: No pertinent hx, Other (obesity ) Dermatology: No pertinent hx PAST SURGICAL HISTORY Past Surgical History: Tonsillectomy, Other (right knee sx) FAMILY HISTORY Family History: Other (noncontributory ) SOCIAL HISTORY Smoke: No ALCOHOL: none Drugs: None Lives: with Family ALLERGIES ALLERGIES: Coded Allergies: aspirin (Verified Allergy, Intermediate, 11/29/16) ROS Review of System 14 point ROS conducted with pertinent positives noted above in HPI PHYSICAL EXAM General: Alert, Oriented X3, Cooperative, No acute distress HEENT: Atraumatic, Mucous membr. moist/pink Lungs: Clear to auscultation, Normal air movement Heart: Regular rate, Normal S1, Normal S2, No murmurs Abdomen: Soft, No tenderness Extremities: No cyanosis, No edema Skin: No breakdown, No significant lesion Neuro: Normal speech, Sensation intact Psych/Mental Status: Mental status NL, Mood NL MUSCULOSKELETAL: Osteoarthritic changes both hands VITALS VITALS Vital Signs Date Time Temp Pulse Resp B/P Pulse Ox O2 Delivery O2 Flow Rate FiO2 12/04/16 14:58 97.5 58 18 128/72 97 Room Air 97.5 LABS Lab: Laboratory Tests Test 12/04/16 05:00 White Blood Count 11.7x10^3/uL (4.0-11.0) Red Blood Count 4.90x10^6/uL (4.30-5.70) Hemoglobin 14.0g/dL (13.0-17.5) Hematocrit 41.8% (39.0-53.0) Mean Corpuscular Volume 85fL (79-100) Mean Corpuscular Hemoglobin 29pg (25-35) Mean Corpuscular Hemoglobin Concent 34g/dL (31-37) Red Cell Distribution Width 14.3% (11.5-14.5) Platelet Count 283x10^3/uL (140-400) Neutrophils (%) (Auto) 51% (31-73) Lymphocytes (%) (Auto) 36% (24-48) Monocytes (%) (Auto) 10% (0-9) Eosinophils (%) (Auto) 2% (0-3) Basophils (%) (Auto) 1% (0-3) Neutrophils # (Auto) 6.0x10^3uL (1.8-7.7) Lymphocytes # (Auto) 4.3x10^3/uL (1.0-4.8) Monocytes # (Auto) 1.2x10^3/uL (0.0-1.1) Eosinophils # (Auto) 0.2x10^3/uL (0.0-0.7) Basophils # (Auto) 0.1x10^3/uL (0.0-0.2) Sodium Level 141mmol/L (136-145) Potassium Level 4.1mmol/L (3.5-5.1) Chloride Level 105mmol/L (98-107) Carbon Dioxide Level 28mmol/L (21-32) Anion Gap 8 (6-14) Blood Urea Nitrogen 10mg/dL (8-26) Creatinine 1.0mg/dL (0.7-1.3) Estimated GFR (Cockcroft-Gault) 78.5 Glucose Level 99mg/dL (70-99) Calcium Level 8.5mg/dL (8.5-10.1) ASSESSMENT/PLAN ASSESSMENT/PLAN 1. Dizziness/ vertigo 2. ? Meniere's Dx 3. Hyperlipidemia 4. Obesity Recommendations Overall suspicion for cardiac etiology low but given recent symptoms along with PANDYA, will obtain echo to r/o contributing cardiac anomalies Outpatient ENT evaluation agree with meclizine Problems: GOYO GRAVES MD 12/05/16 2203: CARDIAC CONSULT ALLERGIES ALLERGIES: Coded Allergies: aspirin (Verified Allergy, Intermediate, 11/29/16) ASSESSMENT/PLAN ASSESSMENT/PLAN Pt. seen and examined. Agree with above SAFETY AIDE note. Late entry for 12/04/2016 51 yo male with vestibular issues. Normal cardiac exam labs/meds/echo reviewed. No cardiac source of dizziness noted. Supportive care. Thanks for consult. Problems: DORIAN LANDRY APRN Dec 04, 2016 16:10 GOYO GRAVES MD Dec 05, 2016 22:03
[2016-12-04 19:35] VITALS: BP 138/77
[2016-12-04] MEDS: DIAZEPAM 5 MG TABLET PO SCH (20:18)
[2016-12-04] MEDS: TAMSULOSIN 0.4 MG CAP.ER.24H. PO SCH (20:18)
[2016-12-04 23:51] VITALS: BP 117/61
[2016-12-05 03:59] VITALS: BP 101/63
[2016-12-05] MEDS: tiZANidine 4 MG TABLET. PO SCH (06:04)
[2016-12-05 07:00] VITALS: BP 103/62
[2016-12-05 07:56] LABS: CALCIUM 9.1 mg/dL (8.5-10.1); GFR 78.5
[2016-12-05] MEDS: ASCORBIC ACID 500 MG TABLET PO SCH (09:01)
[2016-12-05] MEDS: FLUTICASONE 50MCG/NASAL SPRAY 16GM BOTTLE. NS SCH (09:01)
[2016-12-05] MEDS: SENNOSIDES/DOCUSATE 8.6/50MG TABLET. PO SCH (09:02)
[2016-12-05] MEDS: PREDNISONE 10 MG TABLET PO SCH (09:03)
[2016-12-05] MEDS: CETIRIZINE HCL 10 MG TABLET PO SCH (09:04)
[2016-12-05] MEDS: MECLIZINE HCL 12.5 MG TABLET. PO SCH (09:04)
[2016-12-05] MEDS: PANTOPRAZOLE 40 MG TABLET. PO SCH (09:04)
[2016-12-05] MEDS: PROPARACAINE 0.5% OPHTH SOLUTION 15ML BOTTLE. OS SCH (09:08)
--- NOTE | 2016-12-05 09:39 | PDOC ---
PROGRESS NOTES Subjective Subjective He admits continued tinnitus and balance problems. Objective Objective Vital Signs Date Time Temp Pulse Resp B/P Pulse Ox O2 Delivery O2 Flow Rate FiO2 12/05/16 07:57 96 Room Air 12/05/16 07:00 97.7 62 18 103/62 97.7 Intake and Output 12/05/16 07:00 Intake Total 640 ml Output Total 800 ml Balance -160 ml Intake Oral 640 ml Output Urine Total 800 ml # Voids 2 Physical Exam Physical Exam Despite continued ataxia he is making gains with his walking walking for 100' with roller walker with physical therapy providing close stand by assistance. Assessment Assessment Problems Medical Problems: (1) Dizziness Status: Acute (2) Meniere disease Status: Acute (3) Tinnitus Status: Acute Plan Plan of Care Waiting for insurance approval for transfer to rehab unit. Comment Review of Relevant I have reviewed the following items zeke (where applicable) has been applied. Labs Laboratory Tests Test 12/04/16 05:00 12/05/16 06:25 White Blood Count 11.7x10^3/uL (4.0-11.0) Red Blood Count 4.90x10^6/uL (4.30-5.70) Hemoglobin 14.0g/dL (13.0-17.5) Hematocrit 41.8% (39.0-53.0) Mean Corpuscular Volume 85fL (79-100) Mean Corpuscular Hemoglobin 29pg (25-35) Mean Corpuscular Hemoglobin Concent 34g/dL (31-37) Red Cell Distribution Width 14.3% (11.5-14.5) Platelet Count 283x10^3/uL (140-400) Neutrophils (%) (Auto) 51% (31-73) Lymphocytes (%) (Auto) 36% (24-48) Monocytes (%) (Auto) 10% (0-9) Eosinophils (%) (Auto) 2% (0-3) Basophils (%) (Auto) 1% (0-3) Neutrophils # (Auto) 6.0x10^3uL (1.8-7.7) Lymphocytes # (Auto) 4.3x10^3/uL (1.0-4.8) Monocytes # (Auto) 1.2x10^3/uL (0.0-1.1) Eosinophils # (Auto) 0.2x10^3/uL (0.0-0.7) Basophils # (Auto) 0.1x10^3/uL (0.0-0.2) Sodium Level 141mmol/L (136-145) 143mmol/L (136-145) Potassium Level 4.1mmol/L (3.5-5.1) 4.0mmol/L (3.5-5.1) Chloride Level 105mmol/L (98-107) 104mmol/L (98-107) Carbon Dioxide Level 28mmol/L (21-32) 27mmol/L (21-32) Anion Gap 8 (6-14) 12 (6-14) Blood Urea Nitrogen 10mg/dL (8-26) 11mg/dL (8-26) Creatinine 1.0mg/dL (0.7-1.3) 1.0mg/dL (0.7-1.3) Estimated GFR (Cockcroft-Gault) 78.5 78.5 Glucose Level 99mg/dL (70-99) 95mg/dL (70-99) Calcium Level 8.5mg/dL (8.5-10.1) 9.1mg/dL (8.5-10.1) Laboratory Tests Test 12/05/16 06:25 Sodium Level 143mmol/L (136-145) Potassium Level 4.0mmol/L (3.5-5.1) Chloride Level 104mmol/L (98-107) Carbon Dioxide Level 27mmol/L (21-32) Anion Gap 12 (6-14) Blood Urea Nitrogen 11mg/dL (8-26) Creatinine 1.0mg/dL (0.7-1.3) Estimated GFR (Cockcroft-Gault) 78.5 Glucose Level 95mg/dL (70-99) Calcium Level 9.1mg/dL (8.5-10.1) Medications Current Medications Sodium Chloride (Iv Sodium Chloride 0.9% 1000ml Bag) 1,000 ml @ 1,000 mls/hr Q1H IV Last administered on 11/28/16t 15:24; Start 11/28/16 at 14:56; Stop at 15:55; Status DC Meclizine HCl (Antivert) 25 mg 1X ONCE PO Last administered on 11/28/16 15:24 ; Start 11/28/16 at 15:00; Stop 11/28/16 at 15:02; Status DC Acetaminophen (Tylenol) 500 mg 1X ONCE PO Last administered on 11/28/16 16:33 ; Start 11/28/16 at 16:30; Stop 11/28/16 at 16:31; Status DC Diazepam (Valium) 2 mg 1X ONCE IV Last administered on 11/28/16 16:34; Start 11/28/16 at 16:30; Stop 11/28/16 at 16:31; Status DC Ondansetron HCl (Zofran) 4 mg PRN Q8HRS PRN IV NAUSEA/VOMITING Last administered on 11/28/16 19:44; Start 11/28/16 at 19:00; Stop 11/29/16 at 18:59 ; Status DC Acetaminophen (Tylenol) 650 mg PRN Q4HRS PRN PO FEVER; Start 11/28/16 at 19:00 ; Stop 11/29/16 at 18:59; Status DC Acetaminophen (Tylenol) 325 mg PRN Q6HRS PRN PO MILD PAIN / TEMP; Start at 20:30; Stop 11/29/16 at 13:49; Status DC Acetaminophen/ Hydrocodone Bitart (Lortab 5/325) 1 tab PRN Q6HRS PRN PO MODERATE TO SEVERE PAIN Last administered on 12/01/16 03:50; Start 11/28/16 at 20:30 Hydralazine HCl (Apresoline) 10 mg PRN Q4HRS PRN IVP ELEVATED BP, SEE COMMENTS ; Start 11/28/16 at 20:30; Status Cancel Ondansetron HCl (Zofran) 4 mg PRN Q8HRS PRN IV NAUSEA/VOMITING; Start 11/28/16 at 20:30; Status Cancel Albuterol Sulfate (Ventolin Neb Soln) 2.5 mg PRN Q4HRS PRN NEB SHORTNESS OF BREATH; Start 11/28/16 at 20:30; Status Cancel Acetaminophen (Tylenol) 325 mg PRN Q6HRS PRN PO MILD PAIN / TEMP; Start at 20:45; Stop 11/29/16 at 13:49; Status DC Acetaminophen/ Hydrocodone Bitart (Lortab 5/325) 1 tab PRN Q6HRS PRN PO MODERATE TO SEVERE PAIN; Start 11/28/16 at 20:45; Stop 11/29/16 at 14:31; Status DC Hydralazine HCl (Apresoline) 10 mg PRN Q4HRS PRN IVP ELEVATED BP, SEE COMMENTS ; Start 11/28/16 at 20:45 Ondansetron HCl (Zofran) 4 mg PRN Q8HRS PRN IV NAUSEA/VOMITING; Start 11/28/16 at 20:45; Stop 11/29/16 at 10:11; Status DC Albuterol Sulfate (Ventolin Neb Soln) 2.5 mg PRN Q4HRS PRN NEB SHORTNESS OF BREATH; Start 11/28/16 at 20:45 Meclizine HCl (Antivert) 12.5 mg PRN Q6HRS PRN PO DIZZINESS Last administered on 11/29/16 03:50; Start 11/28/16 at 20:45; Stop 11/29/16 at 10:11; Status DC Meclizine HCl (Antivert) 25 mg PRN Q6HRS PRN PO DIZZINESS Last administered on 11/29/16 10:33; Start 11/29/16 at 10:15; Stop 11/29/16 at 14:01; Status DC Ondansetron HCl (Zofran) 4 mg PRN Q6HRS PRN IV NAUSEA/VOMITING 1ST CHOICE; Start 11/29/16 at 20:45 Acetaminophen (Tylenol) 650 mg PRN Q6HRS PRN PO MILD PAIN / TEMP; Start at 14:00 Meclizine HCl 25 mg 25 mg TID PO Last administered on 12/05/16 09:04; Start at 14:00 Promethazine HCl/ Sodium Chloride (Phenergan/Iv Sodium Chloride 0.9% 50ml) 50.5 ml @ 151.5 mls/ hr PRN Q6HRS PRN IV NAUSEA/VOMITING; Start 11/29/16 at 14:00 Fluticasone Propionate (Flonase) 2 spray DAILY NS Last administered on 09:01; Start 11/29/16 at 14:00 Cetirizine HCl 10 mg 10 mg DAILY PO Last administered on 12/05/16 09:04; Start 11/29/16 at 14:00 Sodium Chloride (Iv Sodium Chloride 0.9% 1000ml Bag) 1,000 ml @ 100 mls/hr Q10H IV Last administered on 12/03/16 05:02; Start 11/29/16 at 14:00; Stop at 15:34; Status DC Nicotine (Nicoderm Cq 21mg) 1 patch PRN DAILY PRN TD SMOKING CESSATION; Start 11/29/16 at 14:00 Diazepam (Valium) 5 mg HS PO Last administered on 12/04/16 20:18; Start at 21:00 Acetaminophen/ Butalbital/ Caffeine (Fioricet) 2 tab PRN Q6HRS PRN PO MIGRAINE HEADACHE; Start 11/29/16 at 16:45 Prednisone (Prednisone) 10 mg DAILY PO Last administered on 12/05/16 09:03; Start 11/29/16 at 17:00 Tizanidine HCl (Zanaflex) 4 mg Q8HRS PO Last administered on 12/05/16 06:04; Start 11/29/16 at 17:00 Pantoprazole Sodium (Protonix) 40 mg DAILYAC PO Last administered on 12/05/16 09:04; Start 11/29/16 at 17:00 Tamsulosin HCl (Flomax) 0.4 mg QHS PO Last administered on 12/04/16 20:18; Start 11/29/16 at 21:00 Ascorbic Acid (Vitamin C) 500 mg DAILY PO Last administered on 12/05/16 09:01 ; Start 11/29/16 at 17:00 Iohexol (Omnipaque 350 Mg/ml) 75 ml 1X ONCE IV Last administered on 11/30/16 12:40; Start 11/30/16 at 08:45; Stop 11/30/16 at 08:46; Status DC Info (Do NOT chart on this entry -- for MONITORING) 1 each PRN DAILY PRN MC SEE COMMENTS; Start 11/30/16 at 08:45; Stop 12/02/16 at 08:44; Status DC Senna/Docusate Sodium (Senna Plus) 1 tab BID PO Last administered on 12/05/16 09:02; Start 12/01/16 at 10:30 Bisacodyl (Dulcolax Tab) 10 mg PRN DAILY PRN PO CONSTIPATION; Start 12/01/16 at 10:15 Proparacaine HCl (Alcaine) 1 drop BID OS Last administered on 12/05/16 09:08; Start 12/01/16 at 11:00 Active Scripts Active Reported Tramadol Hcl 50 Mg Tablet 1 Tab PO TID PRN Lipitor (Atorvastatin Calcium) 10 Mg Tablet 1 Tab PO QHS Vitals/I & O Vital Sign - Last 24 Hours 12/04/16 12/04/16 12/04/16 12/04/16 11:00 14:58 19:35 20:10 Temp 97.7 97.5 97.5 97.7 97.5 97.5 Pulse 61 58 59 Resp 18 18 B/P 115/66 128/72 138/77 Pulse Ox 96 97 95 O2 Delivery Room Air Room Air Room Air Room Air 12/04/16 12/05/16 12/05/16 12/05/16 23:51 03:59 07:00 07:57 Temp 97.6 97.5 97.7 97.6 97.5 97.7 Pulse 51 61 62 Resp 18 B/P 117/61 101/63 103/62 Pulse Ox 96 95 94 96 O2 Delivery Room Air Room Air Room Air Room Air Intake and Output 12/04/16 12/04/16 12/05/16 15:00 23:00 07:00 Intake Total 640 ml Output Total 800 ml Balance -160 ml LLUVIA ESPINOZA MD Dec 05, 2016 09:39
--- NOTE | 2016-12-05 10:58 | PDOC3 ---
Discharge Summary Visit Information Date of Admission: Nov 28, 2016 Date of Discharge: Dec 05, 2016 Admitting Diagnosis Comment: 1. Dizziness, vertigo and tinnitus: no central lesions on CT/MRI. treat symptomatically, actually better today. constellation of sx (tinnitus, dizziness) pointing potentially towards Meniere's - ENT consult (O/P) recommended by neuro 2. HLD: on statin 3. Tobacco abuse: nicotine patch while here 4. Obesity: lifestyle changes recommended 5. BPH: on flomax 6. Dispo: awaiting rehab bed Final Diagnosis Problems Medical Problems: (1) Dizziness Status: Acute (2) Meniere disease Status: Acute (3) Tinnitus Status: Acute Brief Hospital Course Allergies Allergies Coded Allergies Type Severity Reaction Last Updated Verified aspirin Allergy Intermediate 11/29/16 Yes Vital Signs Vital Signs Date Time Temp Pulse Resp B/P Pulse Ox O2 Delivery O2 Flow Rate FiO2 12/05/16 07:57 96 Room Air 12/05/16 07:00 97.7 62 18 103/62 97.7 Lab Results Laboratory Tests Test 12/04/16 05:00 12/05/16 06:25 White Blood Count 11.7x10^3/uL (4.0-11.0) Red Blood Count 4.90x10^6/uL (4.30-5.70) Hemoglobin 14.0g/dL (13.0-17.5) Hematocrit 41.8% (39.0-53.0) Mean Corpuscular Volume 85fL (79-100) Mean Corpuscular Hemoglobin 29pg (25-35) Mean Corpuscular Hemoglobin Concent 34g/dL (31-37) Red Cell Distribution Width 14.3% (11.5-14.5) Platelet Count 283x10^3/uL (140-400) Neutrophils (%) (Auto) 51% (31-73) Lymphocytes (%) (Auto) 36% (24-48) Monocytes (%) (Auto) 10% (0-9) Eosinophils (%) (Auto) 2% (0-3) Basophils (%) (Auto) 1% (0-3) Neutrophils # (Auto) 6.0x10^3uL (1.8-7.7) Lymphocytes # (Auto) 4.3x10^3/uL (1.0-4.8) Monocytes # (Auto) 1.2x10^3/uL (0.0-1.1) Eosinophils # (Auto) 0.2x10^3/uL (0.0-0.7) Basophils # (Auto) 0.1x10^3/uL (0.0-0.2) Sodium Level 141mmol/L (136-145) 143mmol/L (136-145) Potassium Level 4.1mmol/L (3.5-5.1) 4.0mmol/L (3.5-5.1) Chloride Level 105mmol/L (98-107) 104mmol/L (98-107) Carbon Dioxide Level 28mmol/L (21-32) 27mmol/L (21-32) Anion Gap 8 (6-14) 12 (6-14) Blood Urea Nitrogen 10mg/dL (8-26) 11mg/dL (8-26) Creatinine 1.0mg/dL (0.7-1.3) 1.0mg/dL (0.7-1.3) Estimated GFR (Cockcroft-Gault) 78.5 78.5 Glucose Level 99mg/dL (70-99) 95mg/dL (70-99) Calcium Level 8.5mg/dL (8.5-10.1) 9.1mg/dL (8.5-10.1) Laboratory Tests Test 12/05/16 06:25 Sodium Level 143mmol/L (136-145) Potassium Level 4.0mmol/L (3.5-5.1) Chloride Level 104mmol/L (98-107) Carbon Dioxide Level 27mmol/L (21-32) Anion Gap 12 (6-14) Blood Urea Nitrogen 11mg/dL (8-26) Creatinine 1.0mg/dL (0.7-1.3) Estimated GFR (Cockcroft-Gault) 78.5 Glucose Level 95mg/dL (70-99) Calcium Level 9.1mg/dL (8.5-10.1) Brief Hospital Course Mr. Perez is a 51 old admitted bec of incapacitating vertigo. [place] hallpike neg , Co managed with neuro,. Imaging of the brain and neck ruled out central causes of vertigo. but sxs remain dramatic. Ended up staying 7 days in house and needs to go to rehab for it. Dc now is meniere's. needed tos tart few meds like valium, meclizine, pred, cetirizine,lortab etc To cont hoem statin and tramadol Dw pt and wifge and consults and RN and SW Pt seen and examined dc 34 mins > 50% counselling. Discharge Information Condition at Discharge: Improved, Stable Disposition/Orders: Other (rehab) Scheduled Atorvastatin Calcium (Lipitor) 1 TAB PO QHS (Reported) Scheduled PRN Tramadol Hcl (Tramadol Hcl) 1 TAB PO TID PRN PRN PAIN (Reported) JOSE RAMON DONALD MD Dec 05, 2016 10:58
--- NOTE | 2016-12-05 11:15 | PDOC ---
PROGRESS NOTES Assessment Problems Medical Problems: (1) Dizziness Status: Acute (2) Meniere disease Status: Acute (3) Tinnitus Status: Acute Peripheral vertigo, no central cause found, probably vestibular neuronitis, also keep in mind possibility of Mnire's disease, new onset. Strange, though, that both myself and PT unable to elicit nystagmus Plan Note plans for inpatient rehab Outpatient Ear nose and throat consultation especially if symptoms persist I considered emperic thiazide diuretic for Mnire's disease but decided to hold off Subjective still dizzy Objective Vital Signs Date Time Temp Pulse Resp B/P Pulse Ox O2 Delivery O2 Flow Rate FiO2 12/05/16 07:57 96 Room Air 12/05/16 07:00 97.7 62 18 103/62 97.7 Intake and Output 12/05/16 07:00 Intake Total 640 ml Output Total 800 ml Balance -160 ml Intake Oral 640 ml Output Urine Total 800 ml # Voids 2 PHYSICAL EXAM Alert. Oriented to time, place and person. PERRL. EOMI. CN: no focal findings. Muscle tone: normal. Muscle strength: 5/5 DTR: 2+ Plantar reflex: flexor Gait: Walks very slowly and deliberately with his walker, really more of a cautious gait than ataxic. Sensory exam: no abnormal findings. No cerebellar signs elicited. Review of Relevant I have reviewed the following items zeke (where applicable) has been applied. Labs Laboratory Tests Test 12/04/16 05:00 12/05/16 06:25 White Blood Count 11.7x10^3/uL (4.0-11.0) Red Blood Count 4.90x10^6/uL (4.30-5.70) Hemoglobin 14.0g/dL (13.0-17.5) Hematocrit 41.8% (39.0-53.0) Mean Corpuscular Volume 85fL (79-100) Mean Corpuscular Hemoglobin 29pg (25-35) Mean Corpuscular Hemoglobin Concent 34g/dL (31-37) Red Cell Distribution Width 14.3% (11.5-14.5) Platelet Count 283x10^3/uL (140-400) Neutrophils (%) (Auto) 51% (31-73) Lymphocytes (%) (Auto) 36% (24-48) Monocytes (%) (Auto) 10% (0-9) Eosinophils (%) (Auto) 2% (0-3) Basophils (%) (Auto) 1% (0-3) Neutrophils # (Auto) 6.0x10^3uL (1.8-7.7) Lymphocytes # (Auto) 4.3x10^3/uL (1.0-4.8) Monocytes # (Auto) 1.2x10^3/uL (0.0-1.1) Eosinophils # (Auto) 0.2x10^3/uL (0.0-0.7) Basophils # (Auto) 0.1x10^3/uL (0.0-0.2) Sodium Level 141mmol/L (136-145) 143mmol/L (136-145) Potassium Level 4.1mmol/L (3.5-5.1) 4.0mmol/L (3.5-5.1) Chloride Level 105mmol/L (98-107) 104mmol/L (98-107) Carbon Dioxide Level 28mmol/L (21-32) 27mmol/L (21-32) Anion Gap 8 (6-14) 12 (6-14) Blood Urea Nitrogen 10mg/dL (8-26) 11mg/dL (8-26) Creatinine 1.0mg/dL (0.7-1.3) 1.0mg/dL (0.7-1.3) Estimated GFR (Cockcroft-Gault) 78.5 78.5 Glucose Level 99mg/dL (70-99) 95mg/dL (70-99) Calcium Level 8.5mg/dL (8.5-10.1) 9.1mg/dL (8.5-10.1) Laboratory Tests Test 12/05/16 06:25 Sodium Level 143mmol/L (136-145) Potassium Level 4.0mmol/L (3.5-5.1) Chloride Level 104mmol/L (98-107) Carbon Dioxide Level 27mmol/L (21-32) Anion Gap 12 (6-14) Blood Urea Nitrogen 11mg/dL (8-26) Creatinine 1.0mg/dL (0.7-1.3) Estimated GFR (Cockcroft-Gault) 78.5 Glucose Level 95mg/dL (70-99) Calcium Level 9.1mg/dL (8.5-10.1) Medications Current Medications Sodium Chloride (Iv Sodium Chloride 0.9% 1000ml Bag) 1,000 ml @ 1,000 mls/hr Q1H IV Last administered on 11/28/16 15:24; Start 11/28/16 at 14:56; Stop at 15:55; Status DC Meclizine HCl (Antivert) 25 mg 1X ONCE PO Last administered on 11/28/16 15:24 ; Start 11/28/16 at 15:00; Stop 11/28/16 at 15:02; Status DC Acetaminophen (Tylenol) 500 mg 1X ONCE PO Last administered on 11/28/16 16:33 ; Start 11/28/16 at 16:30; Stop 11/28/16 at 16:31; Status DC Diazepam (Valium) 2 mg 1X ONCE IV Last administered on 11/28/16 16:34; Start 11/28/16 at 16:30; Stop 11/28/16 at 16:31; Status DC Ondansetron HCl (Zofran) 4 mg PRN Q8HRS PRN IV NAUSEA/VOMITING Last administered on 11/28/16 19:44; Start 11/28/16 at 19:00; Stop 11/29/16 at 18:59 ; Status DC Acetaminophen (Tylenol) 650 mg PRN Q4HRS PRN PO FEVER; Start 11/28/16 at 19:00 ; Stop 11/29/16 at 18:59; Status DC Acetaminophen (Tylenol) 325 mg PRN Q6HRS PRN PO MILD PAIN / TEMP; Start at 20:30; Stop 11/29/16 at 13:49; Status DC Acetaminophen/ Hydrocodone Bitart (Lortab 5/325) 1 tab PRN Q6HRS PRN PO MODERATE TO SEVERE PAIN Last administered on 12/01/16 03:50; Start 11/28/16 at 20:30 Hydralazine HCl (Apresoline) 10 mg PRN Q4HRS PRN IVP ELEVATED BP, SEE COMMENTS ; Start 11/28/16 at 20:30; Status Cancel Ondansetron HCl (Zofran) 4 mg PRN Q8HRS PRN IV NAUSEA/VOMITING; Start 11/28/16 at 20:30; Status Cancel Albuterol Sulfate (Ventolin Neb Soln) 2.5 mg PRN Q4HRS PRN NEB SHORTNESS OF BREATH; Start 11/28/16 at 20:30; Status Cancel Acetaminophen (Tylenol) 325 mg PRN Q6HRS PRN PO MILD PAIN / TEMP; Start at 20:45; Stop 11/29/16 at 13:49; Status DC Acetaminophen/ Hydrocodone Bitart (Lortab 5/325) 1 tab PRN Q6HRS PRN PO MODERATE TO SEVERE PAIN; Start 11/28/16 at 20:45; Stop 11/29/16 at 14:31; Status DC Hydralazine HCl (Apresoline) 10 mg PRN Q4HRS PRN IVP ELEVATED BP, SEE COMMENTS ; Start 11/28/16 at 20:45 Ondansetron HCl (Zofran) 4 mg PRN Q8HRS PRN IV NAUSEA/VOMITING; Start 11/28/16 at 20:45; Stop 11/29/16 at 10:11; Status DC Albuterol Sulfate (Ventolin Neb Soln) 2.5 mg PRN Q4HRS PRN NEB SHORTNESS OF BREATH; Start 11/28/16 at 20:45 Meclizine HCl (Antivert) 12.5 mg PRN Q6HRS PRN PO DIZZINESS Last administered on 11/29/16 03:50; Start 11/28/16 at 20:45; Stop 11/29/16 at 10:11; Status DC Meclizine HCl (Antivert) 25 mg PRN Q6HRS PRN PO DIZZINESS Last administered on 11/29/16 10:33; Start 11/29/16 at 10:15; Stop 11/29/16 at 14:01; Status DC Ondansetron HCl (Zofran) 4 mg PRN Q6HRS PRN IV NAUSEA/VOMITING 1ST CHOICE; Start 11/29/16 at 20:45 Acetaminophen (Tylenol) 650 mg PRN Q6HRS PRN PO MILD PAIN / TEMP; Start at 14:00 Meclizine HCl 25 mg 25 mg TID PO Last administered on 12/05/16 09:04; Start at 14:00 Promethazine HCl/ Sodium Chloride (Phenergan/Iv Sodium Chloride 0.9% 50ml) 50.5 ml @ 151.5 mls/ hr PRN Q6HRS PRN IV NAUSEA/VOMITING; Start 11/29/16 at 14:00 Fluticasone Propionate (Flonase) 2 spray DAILY NS Last administered on 09:01; Start 11/29/16 at 14:00 Cetirizine HCl 10 mg 10 mg DAILY PO Last administered on 12/05/16 09:04; Start 11/29/16 at 14:00 Sodium Chloride (Iv Sodium Chloride 0.9% 1000ml Bag) 1,000 ml @ 100 mls/hr Q10H IV Last administered on 12/03/16 05:02; Start 11/29/16 at 14:00; Stop at 15:34; Status DC Nicotine (Nicoderm Cq 21mg) 1 patch PRN DAILY PRN TD SMOKING CESSATION; Start 11/29/16 at 14:00 Diazepam (Valium) 5 mg HS PO Last administered on 12/04/16 20:18; Start at 21:00 Acetaminophen/ Butalbital/ Caffeine (Fioricet) 2 tab PRN Q6HRS PRN PO MIGRAINE HEADACHE; Start 11/29/16 at 16:45 Prednisone (Prednisone) 10 mg DAILY PO Last administered on 12/05/16 09:03; Start 11/29/16 at 17:00 Tizanidine HCl (Zanaflex) 4 mg Q8HRS PO Last administered on 12/05/16 06:04; Start 11/29/16 at 17:00 Pantoprazole Sodium (Protonix) 40 mg DAILYAC PO Last administered on 12/05/16 09:04; Start 11/29/16 at 17:00 Tamsulosin HCl (Flomax) 0.4 mg QHS PO Last administered on 12/04/16 20:18; Start 11/29/16 at 21:00 Ascorbic Acid (Vitamin C) 500 mg DAILY PO Last administered on 12/05/16 09:01 ; Start 11/29/16 at 17:00 Iohexol (Omnipaque 350 Mg/ml) 75 ml 1X ONCE IV Last administered on 11/30/16 12:40; Start 11/30/16 at 08:45; Stop 11/30/16 at 08:46; Status DC Info (Do NOT chart on this entry -- for MONITORING) 1 each PRN DAILY PRN MC SEE COMMENTS; Start 11/30/16 at 08:45; Stop 12/02/16 at 08:44; Status DC Senna/Docusate Sodium (Senna Plus) 1 tab BID PO Last administered on 12/05/16 09:02; Start 12/01/16 at 10:30 Bisacodyl (Dulcolax Tab) 10 mg PRN DAILY PRN PO CONSTIPATION; Start 12/01/16 at 10:15 Proparacaine HCl (Alcaine) 1 drop BID OS Last administered on 12/05/16 09:08; Start 12/01/16 at 11:00 Active Scripts Active Reported Tramadol Hcl 50 Mg Tablet 1 Tab PO TID PRN Lipitor (Atorvastatin Calcium) 10 Mg Tablet 1 Tab PO QHS Vitals/I & O Vital Sign - Last 24 Hours 12/04/16 12/04/16 12/04/16 12/04/16 14:58 19:35 20:10 23:51 Temp 97.5 97.5 97.6 97.5 97.5 97.6 Pulse 58 59 51 Resp 18 18 18 B/P 128/72 138/77 117/61 Pulse Ox 97 95 96 O2 Delivery Room Air Room Air Room Air Room Air 12/05/16 12/05/16 12/05/16 03:59 07:00 07:57 Temp 97.5 97.7 97.5 97.7 Pulse 61 62 Resp 18 18 B/P 101/63 103/62 Pulse Ox 95 94 96 O2 Delivery Room Air Room Air Room Air Intake and Output 12/04/16 12/04/16 12/05/16 15:00 23:00 07:00 Intake Total 640 ml Output Total 800 ml Balance -160 ml THOMPSON VALDOVINOS MD Dec 05, 2016 11:15
[2016-12-05 15:00] VITALS: BP 166/77
--- NOTE | 2016-12-05 16:57 | CARD ---
APPROVED REPORT EXAM: Two-dimensional and M-mode echocardiogram with Doppler and color Doppler. Other Information Quality : AverageHR: 61bpm INDICATION Dizziness and Vertigo Dyspnea on exertion 2D DIMENSIONS RVDd3.3 (2.9-3.5cm)Left Atrium(2D)3.8 (1.6-4.0cm) IVSd1.3 (0.7-1.1cm)Aortic Root(2D)3.2 (2.0-3.7cm) LVDd5.4 (3.9-5.9cm)LVOT Diameter2.3 (1.8-2.4cm) PWd1.2 (0.7-1.1cm)LVDs3.7 (2.5-4.0cm) FS (%) 31.1 %SV81.3 ml LVEF(%)58.4 (>50%) Aortic Valve AoV Peak Ko.164.8cm/sAoV VTI31.1cm AO Peak GR.10.9mmHgLVOT Peak Ko.110.8cm/s AO Mean GR.6mmHgAVA (VMAX)2.82cm2 JAVON (VTI)3.30cm2 Mitral Valve MV E Peak Gr.3mmHgMV E Mean Gr.1mmHg Tricuspid Valve TR P. [id number] TR Peak Gr.[id number] Pulmonary Vein S1 Mwyqnktb49.2cm/sD2 Alvapejp82.4cm/s PVa [id number] LEFT VENTRICLE The left ventricle is normal size. There is borderline concentric left ventricular hypertrophy. Left ventricle systolic function is normal. The Ejection Fraction is 50-55%. There is normal LV segmental wall motion. The left ventricular diastolic function and filling is normal for age. There is no ventr icular septal defect visualized. RIGHT VENTRICLE The right ventricle is normal size. There is normal right ventricular wall thickness. The right ventr icular systolic function is normal. ATRIA The left atrium size is normal. The right atrium size is normal. The interatrial septum is intact wit h no evidence for an atrial septal defect or patent foramen ovale as noted on 2-D or Doppler imaging. AORTIC VALVE The aortic valve is trileaflet. The aortic valve is normal in structure and function. Doppler and Col or Flow revealed no significant aortic regurgitation. There is no significant aortic valvular stenosi s. MITRAL VALVE The mitral valve is normal in structure. There is no evidence of mitral valve prolapse. There is no m itral valve stenosis. Doppler and Color Flow revealed mild mitral regurgitation. TRICUSPID VALVE The tricuspid valve is normal in structure. Doppler and Color Flow revealed trace to mild tricuspid r egurgitation. The PA pressure was estimated at 24 mmHg. PULMONIC VALVE The pulmonary valve is normal in structure and function. Doppler and Color Flow revealed no pulmonic valvular regurgitation. There is no pulmonic valvular stenosis. GREAT VESSELS The aortic root is normal in size. The ascending aorta is normal in size. Normal pulmonary venous jenaro w (Doppler). The IVC is normal in size and collapses >50% with inspiration. PERICARDIAL EFFUSION There is no pleural effusion. There is no evidence of significant pericardial effusion. Critical Notification Critical Value: No <Conclusion> The left ventricle is normal size. Left ventricle systolic function is normal. The Ejection Fraction is 50-55%. There is borderline concentric left ventricular hypertrophy. There is no significant aortic valvular stenosis. Doppler and Color Flow revealed no significant aortic regurgitation. Doppler and Color Flow revealed mild mitral regurgitation. Doppler and Color Flow revealed trace to mild tricuspid regurgitation. The PA pressure was estimated at 24 mmHg.
== END 2016-12-05 15:18 | disposition home health service (06) | DRG 149 ==
LOC: ER 14:14 → 6 SOUTH 17:00
PROVIDERS: ADMIT Internal Medicine; ATTEND Internal Medicine
DX: H81.399 Other peripheral vertigo, unspecified ear (principal); I10 Essential (primary) hypertension; E66.9 Obesity, unspecified; E78.00 Pure hypercholesterolemia, unspecified; E78.5 Hyperlipidemia, unspecified; G58.9 Mononeuropathy, unspecified; H81.09 Meniere's disease, unspecified ear; H93.19 Tinnitus, unspecified ear; H53.149 Visual discomfort, unspecified; M19.90 Unspecified osteoarthritis, unspecified site; R27.0 Ataxia, unspecified; N40.0 Benign prostatic hyperplasia without lower urinary tract symptoms; Z72.0 Tobacco use; Z79.02 Long term (current) use of antithrombotics/antiplatelets; Z88.6 Allergy status to analgesic agent; Z68.35 Body mass index [BMI] 35.0-35.9, adult
CPT/HCPCS: 36415; 70450; 70498; 70551; 72141; 80048; 80061; 84443; 85027; 85651; 87804; 93005; 93306; 93880; 94250; 94760; 96361; 96374; J2405; J3360; J7030; J7512; J8597; Q9967; 97116; 97530; 99285-25